=== PATIENT | male | born 1975 | race African-American/Black ===

== ENCOUNTER 2016-04-27 07:22 | Emergency (ER) | payer MEDICARE, MEDICAID ==
[~2016-04-27] VITALS: Ht 180.3 cm; Wt 85.0 kg
[~2016-04-27 07:22] MED LIST: LISI-586 PO; SIMV10 PO; WARF7.5 PO
[2016-04-27 07:26] VITALS: BP 135/90; PULSE 87; RESP 16; TEMP 97.8; O2SAT 99
[2016-04-27] MEDS ORDERED: SIMV10TA PO (07:33)
[2016-04-27] MEDS ORDERED: LISI20TA PO (07:33)
[2016-04-27] MEDS ORDERED: COUM4TAB PO (07:33)
--- NOTE | 2016-04-27 07:36 | PD ---
HPI Chief Complaint: Skin Problem Time Seen by Provider: 07:33 Travel History International Travel<30 days: No Contact w/Intl Traveler<30days: No Traveled to known affect area: No History of Present Illness HPI 40-year-old male presents to the emergency department for evaluation of a lump to his buttocks. He states it started 6 days ago. Reports localized pain and drainage from the area. He denies any fevers or chills. Patient reports history of stroke and is currently on simvastatin, lisinopril/ hydrochlorothiazide, warfarin. Patient reports history of same in the past. Patient denies any other complaints at this time. PFSH Past Medical History Hx Anticoagulant Therapy: Yes Cardiovascular Problems: No Cerebrovascular Accident: Yes (X2) Diminished Hearing: No Endocrine: No Genitourinary: No Immune Disorder: No Musculoskeletal: No Neurologic: No Psychiatric: No Reproductive: No Respiratory: No Social History Alcohol Use: Yes (4 PACK OF BEER EVERY DAY) Tobacco Use: Yes (1 PACK A DAY FOR 10 YEARS) Substance Use: Yes (MARIJUANA) Allergies-Medications (Allergen,Severity, Reaction): Coded Allergies: No Known Allergies (Verified , 04/27/16) Reported Meds & Prescriptions Reported Meds & Active Scripts Active Clindamycin (Clindamycin HCl) 300 Mg Cap 300 Mg PO Q6H 10 Days Reported Simvastatin 10 Mg Tab 10 Mg PO DAILY Lisinopril-Hctz 20-12.5 Mg Tab 1 Tab PO DAILY Coumadin (Warfarin) 4 Mg Tab 4 Mg PO DAILY Review of Systems Except as stated in HPI: all other systems reviewed are Neg Physical Exam Narrative GENERAL: Well-developed well-nourished male patient, ambulatory. Afebrile. SKIN: Warm and dry. Patient has a 4cm x 2cm area of fluctuance to the right buttock. This does not extend to the anus. There is mild spontaneous drainage noted. There is no surrounding cellulitic changes. HEAD: Normocephalic. Atraumatic. EYES: No scleral icterus. No injection or drainage. NECK: Supple, trachea midline. No JVD or lymphadenopathy. CARDIOVASCULAR: Regular rate and rhythm without murmurs, gallops, or rubs. RESPIRATORY: Breath sounds equal bilaterally. No accessory muscle use. Lungs sounds clear to auscultation. GASTROINTESTINAL: Abdomen soft, non-tender, nondistended. MUSCULOSKELETAL: No cyanosis, or edema. Data Data Last Documented VS Vital Signs Date Time Temp Pulse Resp B/P Pulse Ox O2 Delivery O2 Flow Rate FiO2 04/27/16 07:26 97.8 87 16 135/90 99 Orders Wound Culture And Gram Stain (04/27/16 07:36) Lidocai-Epi 1%-1:100,000 Inj (Xylocaine- (04/27/16 07:45) MDM Medical Decision Making Medical Screen Exam Complete: Yes Emergency Medical Condition: Yes Medical Record Reviewed: Yes Differential Diagnosis Abscess versus cellulitis versus cyst Narrative Course 40-year-old male presents to the emergency department for an area to his right buttock that is spontaneously draining and painful. He reports history of the same. Physical exam is consistent with abscess. It does not extend to the anus. Patient gives verbal consent for incision and drainage. Patient is instructed on proper wound care. He will be discharged with a prescription for clindamycin and Lortab for pain. Patient is given first dose of clindamycin in the emergency department. He is to follow primary care physician or return for any acute worsening of symptoms. Procedures Procedure Narrative INCISION AND DRAINAGE OF ABSCESS: The area was prepped and was sterilely draped. A subcutaneous wheal of 1% Xylocaine with epinephrine with a total number 5 mL was used to anesthetize the area. The area was properly anesthetized. A number 11 scalpel was used to make a 1 -cm incision across the area of the abscess. Cultures were obtained. The abscess was drained an irrigated with normal saline. Quarter inch iodoform packing was placed in the wound. Sterile dressing applied. Patient advised to have packing removed in two days. Diagnosis Primary Impression: Abscess of buttock, right Referrals: Primary Care Physician call for appointment Patient Instructions: Abscess (ED), Abscess Incision and Drainage (ED), General Instructions Additional Instructions: Clean area twice daily with soap and water and apply [id number] antibiotic ointment. Take antibiotic as directed until gone. Packing removal in 2 days. Take Lortab as directed as needed for pain. Caution this can make you drowsy so do not drive after taking. Follow-up with your primary care physician. Return to the emergency department for any acute worsening of symptoms. Med/Other Pt SpecificInfo: Prescription(s) given Scripts Hydrocodone-Acetaminophen (Lortab)5-325 Mg Tab1 Tab PO Q6H PRN (PAIN) #8 TAB Ref 0 Prov:Hollie Trotter DO 04/27/16 Clindamycin 300 Mg Kos352 Mg PO Q6H 10 Days Ref 0 Prov:Orly Rice 04/27/16 Disposition: 01 DISCHARGE HOME Condition: Stable Orly Rice Apr 27, 2016 07:36
[2016-04-27] MEDS ORDERED: CLIN1CAP6 PO (07:41)
[2016-04-27] MEDS ORDERED: LIDOCAINE 1%/EPINEPHrine 1:100,000 SOLN 20 ML VIAL INFIL ONE (07:45)
[2016-04-27] MEDS ORDERED: HYDR-3533 PO (08:09)
[2016-04-27] MEDS ORDERED: CLINDAMYCIN 150 MG CAP PO ONE (08:15)
== END 2016-04-27 08:25 | disposition home or self-care (01) ==
LOC: NEPB 07:22
DX: L02.31 Cutaneous abscess of buttock (principal); F10.10 Alcohol abuse, uncomplicated; F17.210 Nicotine dependence, cigarettes, uncomplicated; F12.90 Cannabis use, unspecified, uncomplicated; Z79.01 Long term (current) use of anticoagulants
CPT/HCPCS: 10061; 86403; 87070

== ENCOUNTER 2016-07-25 21:51 | Inpatient (IN) | payer MEDICARE, MEDICAID ==
[~2016-07-25] VITALS: Ht 175.3 cm; Wt 76.0 kg
[~2016-07-25 21:51] MED LIST changes: +CLIN1CAP6 PO; +COUM4TAB PO; +HYDR-3533 PO; -LISI-586 PO; +LISI20TA PO; -SIMV10 PO; +SIMV10TA PO; -WARF7.5 PO
[2016-07-25 21:54] VITALS: BP 167/93; PULSE 77; RESP 20; TEMP 98.4; O2SAT 100
--- NOTE | 2016-07-25 22:10 | PD ---
HPI Chief Complaint: Chest Pain Time Seen by Provider: 22:06 Travel History International Travel<30 days: No Contact w/Intl Traveler<30days: No Traveled to known affect area: No History of Present Illness HPI Patient comes in complaining of substernal chest pain that began shortly prior to arrival. Patient denies any radiation of the pain. Reports associated shortness of breath with this. Pain was relieved with aspirin and sublingual nitroglycerin 1 dose was given by EMS en route. Patient denies any nausea, vomiting, headache, new numbness or tingling anywhere, diaphoresis abdominal pain, back pain, cough, or fevers. 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 Patient is on Coumadin. Patient denies any cardiac history or previous chest pain like this. Denies ever having a stress test or cardiac catheter. PFSH Past Medical History Hx Anticoagulant Therapy: Yes (WARFARIN ) Cardiovascular Problems: No Cerebrovascular Accident: Yes Diminished Hearing: No Endocrine: No Gastrointestinal Disorders: No Genitourinary: No Immune Disorder: No Implanted Vascular Access Dvce: No Musculoskeletal: No Neurologic: No Psychiatric: No Reproductive: No Respiratory: No Past Surgical History Other Surgery: No Social History Alcohol Use: Yes (4 PACK OF BEER EVERY DAY) Tobacco Use: Yes (1 PACK A DAY FOR 10 YEARS) Substance Use: Yes (MARIJUANA) Allergies-Medications (Allergen,Severity, Reaction): Coded Allergies: No Known Allergies (Verified , 07/25/16) Reported Meds & Prescriptions Reported Meds & Active Scripts Active Lortab (Hydrocodone-Acetaminophen) 5-325 Mg Tab 1 Tab PO Q6H PRN Reported Simvastatin 10 Mg Tab 10 Mg PO DAILY Lisinopril-Hctz 20-12.5 Mg Tab 1 Tab PO DAILY Coumadin (Warfarin) 4 Mg Tab 4 Mg PO DAILY Review of Systems Except as stated in HPI: all other systems reviewed are Neg Physical Exam Narrative GENERAL: Well-developed, well nourished, in no acute distress, and non-ill appearing. SKIN: Focused skin assessment warm and dry. HEAD: Atraumatic. Normocephalic. EYES: Pupils equal and round. EOMI. No scleral icterus. No injection or drainage. ENT: No nasal bleeding or discharge. Mucous membranes pink and moist. NECK: Trachea midline. No JVD. Supple. No nuclear rigidity. CARDIOVASCULAR: Regular rate and rhythm. No murmur appreciated. RESPIRATORY: No accessory muscle use. No respiratory distress. Scant wheezing noted throughout left greater than right. MUSCULOSKELETAL: No obvious deformities. No clubbing. No cyanosis. No edema. Full range of motion. NEUROLOGICAL: Awake and alert. No obvious cranial nerve deficits. Motor grossly within normal limits. Normal speech. PSYCHIATRIC: Appropriate mood and affect; insight and judgment normal. Data Data Last Documented VS Vital Signs Date Time Temp Pulse Resp B/P Pulse Ox O2 Delivery O2 Flow Rate FiO2 07/25/16 22:12 167/93 07/25/16 22:12 100 Nasal Cannula 2 07/25/16 21:54 98.4 77 20 Orders Electrocardiogram (07/25/16 22:05) Basic Metabolic Panel (Bmp) (07/25/16 22:05) Ckmb (Isoenzyme) Profile (07/25/16 22:05) Complete Blood Count With Diff (07/25/16 22:05) Magnesium (Mg) (07/25/16 22:05) Prothrombin Time / Inr (Pt) (07/25/16 22:05) Act Partial Throm Time (Ptt) (07/25/16 22:05) Troponin I (07/25/16 22:05) Chest, Single Ap (07/25/16 22:05) Ecg Monitoring (07/25/16 22:05) Bilateral Bp Monitoring (07/25/16 22:05) Iv Access Insert/Monitor (07/25/16 22:05) Oximetry (07/25/16 22:05) Oxygen Administration (07/25/16 22:05) Sodium Chloride 0.9% Flush (Ns Flush) (07/25/16 22:15) CKMB (07/25/16 22:16) CKMB% (07/25/16 22:16) Activity Bed Rest With Brp (07/25/16 23:26) Vital Signs (Adult) Q4H (07/25/16 23:26) Cardiac Rhythm .As Directed (07/25/16 23:26) Notify Dr: Other .PRN (07/25/16 23:26) Notify Dr. Parameters (07/25/16 23:26) Resp Oxygen Nasal Cannula (07/25/16 ) Diet Npo (07/26/16 Breakfast) Ckmb (Isoenzyme) Profile (07/26/16 01:16) Ckmb (Isoenzyme) Profile (07/26/16 04:16) Troponin I (07/26/16 01:16) Troponin I (07/26/16 04:16) Electrocardiogram (07/26/16 01:16) Electrocardiogram (07/26/16 04:16) ^ Obtain (07/25/16 23:26) Nitroglycerin Sl (Nitrostat Sl) (07/25/16 23:30) Aspirin (Aspirin) (07/26/16 09:00) Grinder Set Up Operator Jig / Telemetry [email or web address] (07/25/16 23:26) Admit Order (Ed Use Only) (07/25/16 23:28) CKMB (07/26/16 01:37) CKMB% (07/26/16 01:37) CKMB (07/26/16 03:50) CKMB% (07/26/16 03:50) Labs Laboratory Tests Test 07/25/16 22:16 White Blood Count 10.1 TH/MM3 Red Blood Count 4.73 MIL/MM3 Hemoglobin 14.7 GM/DL Hematocrit 43.6 % Mean Corpuscular Volume 92.2 FL Mean Corpuscular Hemoglobin 31.0 PG Mean Corpuscular Hemoglobin 33.7 % Concent Red Cell Distribution Width 15.6 % Platelet Count 213 TH/MM3 Mean Platelet Volume 7.5 FL Neutrophils (%) (Auto) 51.6 % Lymphocytes (%) (Auto) 38.6 % Monocytes (%) (Auto) 6.3 % Eosinophils (%) (Auto) 3.0 % Basophils (%) (Auto) 0.5 % Neutrophils # (Auto) 5.2 TH/MM3 Lymphocytes # (Auto) 3.9 TH/MM3 Monocytes # (Auto) 0.6 TH/MM3 Eosinophils # (Auto) 0.3 TH/MM3 Basophils # (Auto) 0.0 TH/MM3 CBC Comment DIFF FINAL Differential Comment Prothrombin Time 25.0 SEC Prothromb Time International 2.2 RATIO Ratio Activated Partial 43.7 SEC Thromboplast Time Sodium Level 139 MEQ/L Potassium Level 3.4 MEQ/L Chloride Level 106 MEQ/L Carbon Dioxide Level 25.9 MEQ/L Anion Gap 7 MEQ/L Blood Urea Nitrogen 10 MG/DL Creatinine 0.91 MG/DL Estimat Glomerular Filtration 110 ML/MIN Rate Random Glucose 96 MG/DL Calcium Level 8.4 MG/DL Magnesium Level 2.2 MG/DL Total Creatine Kinase 185 U/L Creatine Kinase MB 0.9 NG/ML Troponin I LESS THAN 0.02 NG/ML MDM Medical Decision Making Medical Screen Exam Complete: Yes Emergency Medical Condition: Yes Interpretation(s) EKG reviewed by Dr. Gilman shows sinus rhythm with ventricular rate 76. No STEMI. Chest x-ray read by radiologist shows: 1. Mild bibasilar streakiness consistent with atelectasis, mild infiltrates and/ or congestion. Clinical correlation is recommended. 2. Mild cardiomegaly. Differential Diagnosis Acute coronary syndrome, angina, electrolyte abnormality, pneumonia, pneumothorax, other Narrative Course Patient was seen and examined. Initial laboratory and radiological studies were ordered. Patient was signed out to Dr. Gilman at the end of my shift. Please see her documentation for final diagnosis and disposition. Melvin Graf July 25, 2016 22:10
[2016-07-25 22:12] VITALS: BP 167/93; O2SAT 100
[2016-07-25] MEDS ORDERED: SODIUM CHLORIDE 0.9% FLUSH 10 ML FLUSH IVF PRN (22:15)
[2016-07-25 22:33] LABS: AUTOMATED NEUTROPHIL # 5.2 TH/MM3 (1.8-7.7); BASOPHIL % 0.5 % (0.0-2.0); EOSINOPHIL # 0.3 TH/MM3 (0-0.4); HEMATOCRIT 43.6 % (39.0-51.0); HEMO FLAGS DIFF FINAL; LYMPH % 38.6 % (9.0-44.0); LYMPHOCYTE # 3.9 TH/MM3 (1.0-4.8); MEAN CELL VOLUME 92.2 FL (80.0-100.0); MEAN CORPUSCULAR HGB CONC 33.7 % (32.0-36.0); MONO % 6.3 % (0.0-8.0); NEUT % 51.6 % (16.0-70.0); PLATELET COUNT 213 TH/MM3 (150-450); RED BLOOD COUNT 4.73 MIL/MM3 (4.50-5.90); RED CELL DISTRIBUTION WIDTH 15.6 % (11.6-17.2); WHITE BLOOD COUNT 10.1 TH/MM3 (4.0-11.0)
[2016-07-25 22:42] LABS: APTT (PATIENT) 43.7 SEC (24.3-30.1); INTERNATIONAL NORMALIZED RATIO 2.2 RATIO
--- NOTE | 2016-07-25 22:50 | RADRPT ---
EXAM DATE/TIME: 07/25/2016 22:22 [facility] COMPARISON: CHEST SINGLE AP, October 15, 2011, 18:55. INDICATIONS : Chest pain. MEDICAL HISTORY : None. SURGICAL HISTORY : None. ENCOUNTER: Initial ACUITY: 1 day PAIN SCORE: 6/10 LOCATION: Bilateral chest FINDINGS: The heart is stable. Mild bibasilar streakiness is noted consistent with atelectasis, infiltrates an d/or congestion. CONCLUSION: 1. Mild bibasilar streakiness consistent with atelectasis, mild infiltrates and/or congestion. Clin ical correlation is recommended. 2. Mild cardiomegaly. Uriel Plasencia MD on July 25, 2016 at 22:36 Board Certified Radiologist. This report was verified electronically.
[2016-07-25 23:15] LABS: ANION GAP 7 MEQ/L (5-15); BICARBONATE 25.9 MEQ/L (21.0-32.0); BLOOD UREA NITROGEN 10 MG/DL (7-18); CHLORIDE 106 MEQ/L (98-107); GLOMERULAR FILTRATION RATE 110 ML/MIN (>89); MAGNESIUM 2.2 MG/DL (1.5-2.5); POTASSIUM 3.4 MEQ/L (3.5-5.1); SODIUM (NA) 139 MEQ/L (136-145)
[2016-07-25 23:18] LABS: CREATINE KINASE 185 U/L (39-308)
[2016-07-25] MEDS ORDERED: NITROGLYCERIN 0.4 MG SL 25 TABS/BTL SL PRN (23:30)
[2016-07-25 23:31] LABS: CKMB 0.9 NG/ML (0.5-3.6)
--- NOTE | 2016-07-25 23:42 | PD ---
Data Data Last Documented VS Vital Signs Date Time Temp Pulse Resp B/P Pulse Ox O2 Delivery O2 Flow Rate FiO2 07/25/16 22:12 167/93 07/25/16 22:12 100 Nasal Cannula 2 07/25/16 21:54 98.4 77 20 Orders Electrocardiogram (07/25/16 22:05) Basic Metabolic Panel (Bmp) (07/25/16 22:05) Ckmb (Isoenzyme) Profile (07/25/16 22:05) Complete Blood Count With Diff (07/25/16 22:05) Magnesium (Mg) (07/25/16 22:05) Prothrombin Time / Inr (Pt) (07/25/16 22:05) Act Partial Throm Time (Ptt) (07/25/16 22:05) Troponin I (07/25/16 22:05) Chest, Single Ap (07/25/16 22:05) Ecg Monitoring (07/25/16 22:05) Bilateral Bp Monitoring (07/25/16 22:05) Iv Access Insert/Monitor (07/25/16 22:05) Oximetry (07/25/16 22:05) Oxygen Administration (07/25/16 22:05) Sodium Chloride 0.9% Flush (Ns Flush) (07/25/16 22:15) CKMB (07/25/16 22:16) CKMB% (07/25/16 22:16) Activity Bed Rest With Brp (07/25/16 23:26) Vital Signs (Adult) Q4H (07/25/16 23:26) Cardiac Rhythm .As Directed (07/25/16 23:26) Notify Dr: Other .PRN (07/25/16 23:26) Notify Dr. Parameters (07/25/16 23:26) Resp Oxygen Nasal Cannula (07/25/16 ) Diet Npo (07/26/16 Breakfast) Ckmb (Isoenzyme) Profile (07/26/16 01:16) Ckmb (Isoenzyme) Profile (07/26/16 04:16) Troponin I (07/26/16 01:16) Troponin I (07/26/16 04:16) Electrocardiogram (07/26/16 01:16) Electrocardiogram (07/26/16 04:16) ^ Obtain (07/25/16 23:26) Nitroglycerin Sl (Nitrostat Sl) (07/25/16 23:30) Aspirin (Aspirin) (07/26/16 09:00) Python Architect / Telemetry [email or web address] (07/25/16 23:26) Admit Order (Ed Use Only) (07/25/16 23:28) Labs Laboratory Tests Test 07/25/16 22:16 White Blood Count 10.1 TH/MM3 Red Blood Count 4.73 MIL/MM3 Hemoglobin 14.7 GM/DL Hematocrit 43.6 % Mean Corpuscular Volume 92.2 FL Mean Corpuscular Hemoglobin 31.0 PG Mean Corpuscular Hemoglobin 33.7 % Concent Red Cell Distribution Width 15.6 % Platelet Count 213 TH/MM3 Mean Platelet Volume 7.5 FL Neutrophils (%) (Auto) 51.6 % Lymphocytes (%) (Auto) 38.6 % Monocytes (%) (Auto) 6.3 % Eosinophils (%) (Auto) 3.0 % Basophils (%) (Auto) 0.5 % Neutrophils # (Auto) 5.2 TH/MM3 Lymphocytes # (Auto) 3.9 TH/MM3 Monocytes # (Auto) 0.6 TH/MM3 Eosinophils # (Auto) 0.3 TH/MM3 Basophils # (Auto) 0.0 TH/MM3 CBC Comment DIFF FINAL Differential Comment Prothrombin Time 25.0 SEC Prothromb Time International 2.2 RATIO Ratio Activated Partial 43.7 SEC Thromboplast Time Sodium Level 139 MEQ/L Potassium Level 3.4 MEQ/L Chloride Level 106 MEQ/L Carbon Dioxide Level 25.9 MEQ/L Anion Gap 7 MEQ/L Blood Urea Nitrogen 10 MG/DL Creatinine 0.91 MG/DL Estimat Glomerular Filtration 110 ML/MIN Rate Random Glucose 96 MG/DL Calcium Level 8.4 MG/DL Magnesium Level 2.2 MG/DL Total Creatine Kinase 185 U/L Creatine Kinase MB 0.9 NG/ML Troponin I LESS THAN 0.02 NG/ML MDM Supervised Visit with ADELINA: Yes Narrative Course I, Dr. Gilman, have reviewed the advance practice practioner's documentation and am in agreement, met with the patient face to face, made the diagnosis, and the medical decision making was done by me. *My assessment and Findings: 41-year-old male with history of previous CVA on Coumadin here with chest pain that developed shortly prior to arrival, substernal without radiation. Associated shortness of breath. Symptoms relieved with aspirin and nitroglycerin en route per EMS. No reproducible tenderness palpation, regular rate and rhythm. Minimal wheeze bilaterally. Differential includes ACS, atypical chest pain, pneumonia, COPD, and less likely PE or dissection. EKG and laboratory workup unremarkable. Given his age and history of vascular disease Will admit to chest pain center for serial cardiac enzymes/EKG and provocative testing. Tori Gilman MD July 25, 2016 23:42
[2016-07-25 23:55] VITALS: O2SAT 100
[2016-07-26] VITALS (10 sets, daily range): BP systolic 133–172; BP diastolic 79–95; PULSE 61–70; RESP 18–20; TEMP 96.1–98.4; O2SAT 96–98
[2016-07-26 02:07] LABS: CREATINE KINASE 182 U/L (39-308)
[2016-07-26 02:20] LABS: CKMB 2.2 NG/ML (0.5-3.6)
[2016-07-26 05:44] LABS: CREATINE KINASE 176 U/L (39-308)
[2016-07-26 05:57] LABS: CKMB 3.6 NG/ML (0.5-3.6)
[2016-07-26] MEDS ORDERED: NALOXONE HCL 0.4 MG/ML AMP IV PRN (06:15)
[2016-07-26] MEDS ORDERED: ONDANSETRON HCL 4 MG/2 ML VIAL IVP PRN (06:15)
[2016-07-26] MEDS ORDERED: SODIUM CHLORIDE 0.9% FLUSH 10 ML FLUSH IV FLUSH PRN (06:15)
[2016-07-26] MEDS: SODIUM CHLOR 0.9% 1000 ML INJ 1,000 ML IV SCH (06:37)
[2016-07-26] MEDS: HEPARIN-D5W INJ 250 ML IV SCH (06:37)
[2016-07-26 07:42] LABS: HEMATOCRIT 43.5 % (39.0-51.0); MEAN CELL VOLUME 91.4 FL (80.0-100.0); MEAN CORPUSCULAR HEMOGLOBIN 31.7 PG (27.0-34.0); MEAN CORPUSCULAR HGB CONC 34.6 % (32.0-36.0); PLATELET COUNT 229 TH/MM3 (150-450); RED BLOOD COUNT 4.76 MIL/MM3 (4.50-5.90); RED CELL DISTRIBUTION WIDTH 15.7 % (11.6-17.2); REVIEW FLAG FINAL; WHITE BLOOD COUNT 8.2 TH/MM3 (4.0-11.0)
[2016-07-26 07:56] LABS: INTERNATIONAL NORMALIZED RATIO 2.4 RATIO; PROTHROMBIN TIME - PATIENT 28.1 SEC (9.8-11.6)
[2016-07-26 08:01] LABS: HDL CHOLESTEROL 37.4 MG/DL (40.0-60.0)
[2016-07-26] MEDS: ASPIRIN 325 MG TAB PO SCH (08:40)
[2016-07-26] MEDS: SODIUM CHLORIDE 0.9% FLUSH 10 ML FLUSH IV FLUSH SCH ×2 (08:41→21:00)
[2016-07-26] MEDS ORDERED: PRAVASTATIN SOD 20 MG TAB PO SCH (09:00)
--- NOTE | 2016-07-26 10:29 | HHI.HP ---
[facility] Huang Saba, PhD, MD Admission Diagnosis chest pain Diagnoses: Chief Complaint: chest pain Travel History International Travel<30 Days: No Contact w/Intl Traveler <30 Da: No Traveled to Known Affected Are: No History of Present Illness 41-year-old male with history of HTN, HLD, CVA 5 years ago on Coumadin with residual right sided weakness and dysarthria/speech delay, presents with acute onset of chest pain prior to arrival. The patient reports last night around 8pm while watching television he developed constant severe sharp midsternal chest pain, with no radiation of the pain but did have tingling down both arms/hands. Denies any associated nausea/vomiting, diaphoresis, or shortness of breath. Denies any lower extremity edema or weight gain. The pain was worsened by deep inspiration and is reproducible with palpation. The patient does admit he has been doing a lot of push ups yesterday prior to the chest pain. He has never had chest pain like this before. He denies any chest pain with exertion in the past. His chest pain was relieved after receiving aspirin and nitro en route via EMS. He follows with neurologist Dr. Saba and he also believes he has a dietist in [place] however denies any prior stress testing or cardiac catheterization. The patient has no other medical complaints to report. Review of Systems Except as stated in HPI: all other systems reviewed are Neg Past Family Social History Past Medical History CVA x2, 5years ago, follows with Dr. Saba, residual dysarthria with speech delay and right sided weakness Hypertension Hyperlipidemia Past Surgical History Denies any prior surgeries. Reported Medications Simvastatin 10 Mg Tab 10 Mg PO DAILY Lisinopril-Hctz 20-12.5 Mg Tab 1 Tab PO DAILY Coumadin (Warfarin) 4 Mg Tab 4 Mg PO DAILY Allergies: Coded Allergies: No Known Allergies (Verified , 07/25/16) Active Ordered Medications Current Medications Medications (Trade) Dose Ordered Sig/Adilia Route Start Time Stop Time Status Last Admin Aspirin 325 mg 325 mg DAILY PO 07/26/16 09:00 07/26/16 08:40 (NS 1000 ml Inj) 1,000 ml @ 42 mls/hr [id number] IV 07/26/16 06:05 07/26/16 06:37 (NS Flush) 2 ml UNSCH PRN IV FLUSH 07/26/16 06:15 (NS Flush) 2 ml BID IV FLUSH 07/26/16 09:00 07/26/16 08:41 (Tylenol) 650 mg Q4H PRN PO 07/26/16 06:15 (Zofran Inj) 4 mg Q6H PRN IVP 07/26/16 06:15 Naloxone HCl 0.4 mg 0.4 mg UNSCH PRN IV 07/26/16 06:15 (Heparin-D5W Inj) 250 ml @ 0 mls/hr TITRATE IV 07/26/16 06:15 07/26/16 06:37 (Nitroglycerin 2% Oint) 0.5 inch Q6HR TOPICAL 07/26/16 12:00 (Pravachol) 20 mg DAILY PO 07/26/16 09:00 07/26/16 08:41 Family History Both parents are fairly healthy, he is not aware of any significant medical problems. 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 SKIN: Warm and dry. No rash. HEAD: Normocephalic. Atraumatic. EYES: Pupils equal and round. No scleral icterus. No injection or drainage. ENT: No nasal bleeding or discharge. Mucous membranes pink and moist. NECK: Supple. Trachea midline. CARDIOVASCULAR: Regular rate and rhythm. S1, S2 noted. No murmur appreciated. Mid-Anterior chest wall mildly TTP. RESPIRATORY: No accessory muscle use. Clear to auscultation. Breath sounds equal bilaterally. GASTROINTESTINAL: Abdomen soft, non-tender, nondistended. Normoactive bowel sounds x4. MUSCULOSKELETAL: No obvious deformities. Extremities without clubbing, cyanosis , or edema. NEUROLOGICAL: Awake and alert, Oriented to self, [facility], year 2016, does not know the month or date. 4/5 strength of RUE/RLE, 5/5 strength of LUE/ LLE. Patellar DTR 2+ on the right, 1+ on the left. Slight right sided facial droop with flattening of the nasolabial fold. +Dysarthria with slowed speech. PSYCHIATRIC: Appropriate mood and affect; insight and judgment normal. Laboratory Laboratory Tests Test 07/25/16 07/26/16 07/26/16 07/26/16 22:16 01:37 03:50 07:11 White Blood Count 10.1 8.2 Red Blood Count 4.73 4.76 Hemoglobin 14.7 15.1 Hematocrit 43.6 43.5 Mean Corpuscular Volume 92.2 91.4 Mean Corpuscular Hemoglobin 31.0 31.7 Mean Corpuscular Hemoglobin 33.7 34.6 Concent Red Cell Distribution Width 15.6 15.7 Platelet Count 213 229 Mean Platelet Volume 7.5 8.0 Neutrophils (%) (Auto) 51.6 Lymphocytes (%) (Auto) 38.6 Monocytes (%) (Auto) 6.3 Eosinophils (%) (Auto) 3.0 Basophils (%) (Auto) 0.5 Neutrophils # (Auto) 5.2 Lymphocytes # (Auto) 3.9 Monocytes # (Auto) 0.6 Eosinophils # (Auto) 0.3 Basophils # (Auto) 0.0 CBC Comment DIFF FINAL Differential Comment Prothrombin Time 25.0 28.1 Prothromb Time International 2.2 2.4 Ratio Activated Partial 43.7 80.0 Thromboplast Time Sodium Level 139 Potassium Level 3.4 Chloride Level 106 Carbon Dioxide Level 25.9 Anion Gap 7 Blood Urea Nitrogen 10 Creatinine 0.91 Estimat Glomerular Filtration 110 Rate Random Glucose 96 Calcium Level 8.4 Magnesium Level 2.2 Total Creatine Kinase 185 182 176 Creatine Kinase MB 0.9 2.2 3.6 Troponin I LESS THAN 0.02 0.19 0.46 Triglycerides Level 101 Cholesterol Level 132 LDL Cholesterol 74 HDL Cholesterol 37.4 Cholesterol/HDL Ratio 3.52 Result Diagram: 07/26/16 0711 07/25/162215 Imaging Last Impressions Chest X-Ray 07/25/162204 Signed Impressions: Service Date/Time: Wednesday, July 25, 2016 22:22 - CONCLUSION: 1. Mild bibasilar streakiness consistent with atelectasis, mild infiltrates and/or congestion. Clinical correlation is recommended. 2. Mild cardiomegaly. Uriel Plasencia MD Assessment and Plan Problem List: (1) NSTEMI (non-ST elevated myocardial infarction) ICD Code: I21.4 Status: Acute (2) Hypertension ICD Code: I10 Status: Chronic (3) Hyperlipidemia ICD Code: E78.5 Status: Chronic Assessment and Plan 41-year-old male with history of HTN, HLD, CVA 5 years ago on Coumadin with residual right sided weakness and dysarthria/speech delay, presents with acute onset of chest pain prior to arrival. NSTEMI: patient presents with acute onset of chest pain with some typical and atypical components, reproduced with palpation, however relieved by aspirin/ nitro en route. +risk factors with tobacco use, HTN, HLD, prior CVA. -Troponins elevated 0.02 --> 0.19 --> 0.46, EKG with no acute ST elevation/ depression, nonspecific ST-T changes -Started on Heparin drip -lipid panel reviewed, wnl, check HgbA1c -continue aspirin, statin, nitro ointment q6h -patient with +marijuana use, denies cocaine use however will check UDS and if negative, consider starting BB -Cardiology consulted, requests neuro clearance prior to cardiac catheterization -monitor on telemetry -check echocardiogram Hypertension: chronic, BP fairly well controlled -continue patient's lisinopril however hold patient's HCTZ with upcoming cardiac cath Hyperlipidemia: chronic -continue patient's statin Chronic CVA with Residual Right Sided Deficit and Dysarthria: chronic -hold patient's Coumadin, on heparin drip as above -monitor neuro checks -continue aspirin for now -neurology consulted by cardiology for clearance prior to cardiac cath Tobacco Use: chronic -counseled on cessation -avoid nicotine patch secondary to vasoconstriction with NSTEMI as above DVT Prophylaxis: on Heparin drip Written by Kathia Early, acting as scribe for Dr. Flannery on 07/26/16 at 10: 19. This note was transcribed by scribe [Kathia Early]. I, Dr. Finn Flannery personally performed the history, physical exam, and medical decision making; and confirmed the accuracy of the information in the transcribed note. Authenticated by Dr. Finn Flannery on 07/28/16 at 09:11. Code Status Full Code Discussed Condition With Patient, RN Physician Certification 2 Midnight Certification Type: Admission for Inpatient Services Order for Inpatient Services The services are ordered in accordance with Medicare regulations or non- Medicare payer requirements, as applicable. In the case of services not specified as inpatient-only, they are appropriately provided as inpatient services in accordance with the 2-midnight benchmark. Estimated LOS (days): 3 days is the estimated time the patient will need to remain in the hospital, assuming treatment plan goals are met and no additional complications. Post-Hospital Plan: Home Kathia Early PA-C July 26, 2016 10:29 Finn Flannery MD July 28, 2016 09:11
--- NOTE | 2016-07-26 10:49 | MB ---
cc: MEENU CRANE M.D. DATE OF CONSULTATION: 07/26/2016 HISTORY OF PRESENT ILLNESS Jj is a very pleasant 41-year-old gentleman with history of coronary artery disease status post myocardial infarction, status post CVA with residual right-sided weakness, anticoagulated with Coumadin and also has dysarthria, presents to the ER with complaints of 8 out of 10 chest pain, severe dyspnea. Currently he is asymptomatic. Pain was relieved with aspirin and nitro by EMS. He otherwise denies any fevers, chills, cough, GI or bleeding, PND, orthopnea, syncope, dizziness. PAST MEDICAL HISTORY Per history of present illness. SOCIAL HISTORY Drinks four packs of beer every day. Smokes a pack of cigarettes a day. Smokes marijuana. ALLERGIES None. MEDICATIONS Prior to admission: Lisinopril, HCTZ, Simvastatin 10. Medications in the hospital: 1. Half-inch nitro paste q.6 hours. 2. Aspirin 325. 3. Pravastatin 20. 4. Coumadin. PHYSICAL EXAMINATION VITAL SIGNS: Blood pressure 133/86, pulse 67, respiratory rate 18, temperature 98.4. GENERAL: He is alert and oriented x 3, in no acute distress. NECK: Supple. No JVD or bruit. CARDIOVASCULAR: S1, S2. No murmurs, rubs or gallops. LUNGS: Clear to auscultation bilaterally. ABDOMEN: Soft, nontender, nondistended. Positive bowel sounds. EXTREMITIES: No lower extremity edema. LABORATORY DATA White count 8.2, hemoglobin 15.1, hematocrit 43.5, platelet count 229, troponin is less than 0.02, then 0.19 and 0.46. Sodium 139, potassium 3.4, chloride 106, bicarb 25.9, BUN 10, creatinine 0.91, calcium 8.4, LDL 74, INR is 2.4. IMAGING STUDIES Chest x-ray shows mild bibasilar streakiness consistent with atelectasis, mild infiltrate and/or congestion, clinic correlation is recommended, mild cardiomegaly. EKG Shows normal sinus rhythm at 76 beats per minute. Nonspecific ST-T wave changes. DIAGNOSES 1. Non-STEMI. 2. History of CVA. 3. Hemiparesis. 4. Dysarthria. 5. Hypokalemia. 6. Dyspnea. 7. CHF. 8. Hypocalcemia. 9. Tobacco abuse. 10. Marijuana abuse. 11. Alcohol abuse. DISCUSSION At this point in time I have recommended a left heart catheterization. I think left heart catheterization is medically necessary due to non-STEMI, multiple cardiac risk factors, elevated troponin, 8 out of 10 chest pain as detailed above. The patient is currently chest pain free. At this point in time will hold his Coumadin, start a heparin drip, check INR daily and plan for heart catheterization when INR less than 2.0. I explained to the patient the risk of the cath and/or PCI, there is a 10% chance of , stroke, heart attack, need for bypass surgery, need for dialysis, need for surgery, need for blood transfusion, bleeding, infection, anaphylaxis of arrhythmia. The patient understands and consents to proceed. Otherwise, strongly recommend smoking cessation, marijuana cessation, alcohol abstinence. I have counseled the patient myself personally. Plan discussed with the nurse. MD COLLEEN Cline/TLL /10:06 AM /10:32 AM
[2016-07-26] MEDS: NITROGLYCERIN 2% OINT 1 GM PACKET TOPICAL SCH ×3 (12:17→23:48)
[2016-07-26] MEDS ORDERED: POTASSIUM CHLORIDE 10 MEQ CONTROLLED RELEASE TAB PO ONE (13:00)
--- NOTE | 2016-07-26 13:01 | MB ---
cc: DENAE GAMEZ M.D. DATE OF CONSULTATION: 07/26/2016 DATE OF : [birth year], 41 REASON FOR CONSULTATION The patient is a 41 year-old man with a history of left MCA infarct, on anticoagulation, now with chest pain, clearance for cardiac cath. HISTORY OF PRESENT ILLNESS: The patient is a 41 year-old man who states he had two stroked, follows with my partner in the office, Dr. Saba. He had apparently left MCA infarct in the left posterior inferior cerebral artery infarct in the past with a history of hypertension and hyperlipidemia. Smoking history. Compliant with Coumadin and therapeutic INR. He came in with chest pain and dyspnea. Currently he is asymptomatic. Offers no complaints of chest pain, shortness of breath. He has some residual right-sided weakness and aphasia, but other than that offers no new complaints. MEDICATIONS 1. Lisinopril. 2. Simvastatin. 3. Hydrochlorothiazide. 4. Coumadin. ALLERGIES None. SOCIAL HISTORY Smokes a pack a day. Smokes marijuana, drinks four pack of beer every day. FAMILY HISTORY Noncontributory at this time. PHYSICAL EXAMINATION: Vitals: Temperature 98.4, pulse 67, respiratory rate 18, blood pressure 133/86. Neck is supple. I do not appreciate any bruits. Heart: His heart is regular. He is awake and alert, some expressive aphasia. Follows commands. His pupils are reactive. Mild facial asymmetry on the right, some right hemiparesis, mild on the right. Bkczho-nrcs-liiyrf slower on the right. DTRs are trace to 1+. Gait is withheld at this time. LABORATORY DATA: Reviewed. CBC is normal. Coag panel, INR is 2.4 this morning, 2.2 yesterday. His PTT is 80. He is now on heparin. Chemistry: Triglycerides is 101, cholesterol 132, LDL 74, HDL 37.4. Troponin is 0.02, 0.19 and 0.46 respectively. Calcium 8.4, normal. Potassium 3.4. IMAGING STUDIES: Chest x-ray, mild bibasilar streakiness, mild cardiomegaly. IMPRESSION: The patient is a 41 year-old man with non STEMI. History of stroke. Chronic tobacco, marijuana and alcohol abuse. RECOMMENDATIONS: Recommend at this time, since he is on heparin, hold his Coumadin, follow his INR daily. His heart cath can be done when his INR is less than 2. Continue his heparin drip. Post cath, go ahead and restart his Coumadin. I do not see any reason this patient cannot undergo workup for his chest pain, via a left heart catheterization. He will be explained the risks and benefits of the cath by the team performing it. I do not believe he needs any other tests neurologically. MD YUNIOR Morales/ABDELRAHMAN /11:11 AM /12:52 PM
[2016-07-26 13:25] LABS: APTT (PATIENT) 51.6 SEC (24.3-30.1)
--- NOTE | 2016-07-26 13:49 | EKG ---
Date Performed: 07/25/2016 Time Performed: 22:30:26 PTAGE: 41 years EKG: Sinus rhythm POOR PRECORDIAL R-WAVE PROGRESSION BORDERLINE ECG PREVIOUS TRACING : 10/15/2011 18.02 DOCTOR: Lj Dias Interpretating Date/Time 07/26/2016 13:47:18
--- NOTE | 2016-07-26 13:58 | EKG ---
Date Performed: 07/26/2016 Time Performed: 01:28:09 PTAGE: 41 years EKG: NORMAL Sinus rhythm POSSIBLE LEFT ATRIAL ENLARGEMENT BORDERLINE LEFT AXIS DEVIATION INFERIOR NONSPECIFIC T-WAVE CHANGES POOR PRECORDIAL R-WAVE PROGRESSION ABNORMAL ECG PREVIOUS TRACING : 07/25/2016 22.30 DOCTOR: Lj Dias Interpretating Date/Time 07/26/2016 13:57:01
--- NOTE | 2016-07-26 14:00 | EKG ---
Date Performed: 07/26/2016 Time Performed: 04:10:00 PTAGE: 41 years EKG: Sinus rhythm POOR PRECORDIAL R-WAVE PROGRESSION BORDERLINE ECG PREVIOUS TRACING : 07/26/2016 01.28 DOCTOR: Lj Dias Interpretating Date/Time 07/26/2016 13:58:52
[2016-07-26 15:50] LABS: AMPHETAMINE, URINE NEG (NEG); BARBITURATES, URINE NEG (NEG); COCAINE, URINE NEG (NEG)
[2016-07-26 20:38] LABS: APTT (PATIENT) 49.5 SEC (24.3-30.1)
[2016-07-27] VITALS (18 sets, daily range): BP systolic 155–204; BP diastolic 77–95; PULSE 61–86; RESP 16–20; TEMP 96.7–98.4; O2SAT 95–99
[2016-07-27] MEDS: NITROGLYCERIN 2% OINT 1 GM PACKET TOPICAL SCH ×2 (06:00→12:27)
[2016-07-27 06:15] LABS: AUTOMATED NEUTROPHIL # 5.1 TH/MM3 (1.8-7.7); BASOPHIL # 0.1 TH/MM3 (0-0.2); BASOPHIL % 0.5 % (0.0-2.0); EOSINOPHIL # 0.2 TH/MM3 (0-0.4); EOSINOPHIL % 2.3 % (0.0-4.0); HEMO FLAGS DIFF FINAL; LYMPHOCYTE # 4.1 TH/MM3 (1.0-4.8); MEAN CELL VOLUME 91.5 FL (80.0-100.0); MEAN CORPUSCULAR HEMOGLOBIN 31.3 PG (27.0-34.0); MEAN CORPUSCULAR HGB CONC 34.2 % (32.0-36.0); MONO % 6.6 % (0.0-8.0); NEUT % 50.6 % (16.0-70.0); PLATELET COUNT 229 TH/MM3 (150-450); RED BLOOD COUNT 4.48 MIL/MM3 (4.50-5.90); RED CELL DISTRIBUTION WIDTH 15.8 % (11.6-17.2); WHITE BLOOD COUNT 10.2 TH/MM3 (4.0-11.0)
[2016-07-27 06:29] LABS: INTERNATIONAL NORMALIZED RATIO 1.9 RATIO; PROTHROMBIN TIME - PATIENT 21.6 SEC (9.8-11.6)
[2016-07-27 06:38] LABS: BICARBONATE 24.2 MEQ/L (21.0-32.0); POTASSIUM 3.7 MEQ/L (3.5-5.1)
[2016-07-27] MEDS ORDERED: LISINOPRIL 10 MG TAB PO SCH (09:00)
[2016-07-27] MEDS: SODIUM CHLORIDE 0.9% FLUSH 10 ML FLUSH IV FLUSH SCH (09:41)
[2016-07-27] MEDS: ASPIRIN 325 MG TAB PO SCH (09:42)
[2016-07-27] MEDS: SODIUM CHLOR 0.9% 1000 ML INJ 1,000 ML IV SCH (09:42)
[2016-07-27 11:38] LABS: HEMOGLOBIN A1a 1.2 %; HEMOGLOBIN A1b 0.8 %; HEMOGLOBIN Ao 85.8 %; HEMOGLOBIN LA1C 1.7 %; HEMOGLOBIN P3 3.5 %
--- NOTE | 2016-07-27 13:31 | EC ---
Study Study Date:07/27/2016 STUDY CONCLUSIONS SUMMARY - Left ventricle: The cavity size was normal. Wall thickness was normal. Systolic function was normal. The estimated ejection fraction was in the range of 55% to 60%. Wall motion was normal; there were no regional wall motion abnormalities. - Pulmonary arteries: PA peak pressure: 35mm Hg (S). If LV function is below 40, please consider prescribing an ACEI or ARB or document rationale for non-use. PROCEDURE DATA STUDY STATUS: Elective. Procedure: Transthoracic echocardiography. Image quality was good. Scanning was performed from the parasternal, apical, and subcostal acoustic windows. Study completion: The patient tolerated the procedure well. Transthoracic echocardiography. M-mode, complete 2D, complete spectral Doppler, and color Doppler. Patient status: Inpatient. CARDIAC ANATOMY LEFT VENTRICLE: The cavity size was normal. Wall thickness was normal. Systolic function was normal. The estimated ejection fraction was in the range of 55% to 60%. Wall motion was normal; there were no regional wall motion abnormalities. AORTIC VALVE: Trileaflet; normal thickness leaflets. Doppler: Transvalvular velocity was within the normal range. There was no stenosis. No regurgitation. AORTA: Aortic root: The aortic root was normal in size. MITRAL VALVE: Structurally normal valve. Doppler: Transvalvular velocity was within the normal range. There was no evidence for stenosis. No regurgitation. LEFT ATRIUM: The atrium was normal in size. RIGHT VENTRICLE: The cavity size was normal. Wall thickness was normal. PULMONIC VALVE: Doppler: Transvalvular velocity was within the normal range. There was no evidence for stenosis. No regurgitation. TRICUSPID VALVE: Structurally normal valve. Doppler: Transvalvular velocity was within the normal range. No regurgitation. PULMONARY ARTERY: The main pulmonary artery was normal-sized. Systolic pressure was within the normal range. RIGHT ATRIUM: The atrium was normal in size. PERICARDIUM: There was no pericardial effusion. SYSTEMIC VEINS: Inferior vena cava: The vessel was normal in size. BASIC MEASUREMENTS ADULT Normal Left ventricle LV internal dimension, ED, chordal level, 44.1 mm 43-52 PLAX LV internal dimension, ES, chordal level, 32 mm 23-38 PLAX Fractional shortening, chordal level, PLAX *27 % >29 LV posterior wall thickness, ED 10.3 mm IVS/LVPW ratio, ED *1.67 <1.3 Ventricular septum Septal thickness, ED 17.2 mm Aortic valve Leaflet separation 22 mm 15-26 Right ventricle RV internal dimension, ED, PLAX 24.8 mm 19-38 BASIC MEASUREMENTS ADULT Normal Aortic valve Leaflet separation 22 mm 15-26 Aorta Root diameter, ED 33 mm 20-37 Left atrium Anterior-posterior dimension, ES 32 mm 19-40 LA/aortic root ratio 0.97 DOPPLER MEASUREMENTS ADULT Normal Main pulmonary artery Pressure, S *35 mm Hg =30 Tricuspid valve Regurgitant peak velocity 251 cm/s Peak RV-RA gradient, S 25 mm Hg Maximal regurgitant velocity 251 cm/s Systemic veins Estimated CVP 10 mm Hg Right ventricle RV pressure, S *35 mm Hg <30 LEGEND: Mean values are shown as u=mean value. Asterisk (*) gold values outside specified normal range. Prepared and signed by Mark Sommer [id number]
[2016-07-27] MEDS ORDERED: IOHEXOL 350 MG/ML 50 ML BTL (for Cath Lab) OTHER ONE (14:53)
[2016-07-27] MEDS ORDERED: HEPARIN-NS/PF INJ 500 ML ONE (14:59)
[2016-07-27] MEDS ORDERED: TIROFIBAN INFUSION INJ 250 ML IV ONE (15:38)
[2016-07-27] MEDS ORDERED: CLOPIDOGREL 300 MG TAB ONE (15:46)
[2016-07-27] MEDS ORDERED: TIROFIBAN INFUSION INJ 250 ML IV SCH (15:47)
--- NOTE | 2016-07-27 15:58 | CATHPROC ---
Nutricate HIS Report Study Information Study Number Admission Scheduled Start Study Start [id number] 07/26/2016 07/27/2016 Jul 27 2016 2:37PM Referring Institution Admit Source Facility Department 1 Emergency department [facility] Physician and Clinical Staff Initial Greg Rausch Financial Legal Assistantsylvia Aparicio RN, Petrona Cruz,RT(R) (BS) Scrub Martha Amaro RCIS TECH2 Procedures Performed Procedure Location (Site) Vessel Name Coronary Angiograms LCA Left Coronary Coronary Angiograms RCA Right Coronary L Heart Cath LV Gram-hand inj. LV LV Ventricle PTCA ADD ON'S Stent LAD Mid Left Coronary Wire insertion Fem Art (right) Femoral Art Equipment Time Incinerator Attendant Description Size Mfg Part Number Used/Scraped 15:33 [email or web address] CRITICAL CARE WIRE, TASS PROWATER 180CM 180CM [id number] Used TRANSDUCER, TRUWAVE 14:39 [employer] biostructures * [id number] Used W/STOCKCOCK [id number] 14:39 [employer] IND[employer]RIES PACK, CCL CUSTOM * Used *[id number] 14:39 Trippy PACER PEN, SKIN DUAL W/ RULER * [id number] Used [id number] 15:39 [employer] Entertainment[employer]ONIC STENT, 3.0 9 INTEGRITY 3.0 9 Used *[id number] 15:31 [employer] MEDICAL 30 CHENCHO INDEFLATOR Used *[id number] 15:32 [employer] MEDICAL SHEATH, FR6.5 PRELUDE 11CM FR 6.5 038ACT Used *[id number]- 15:33 [employer] MEDICAL SHEATH, FR6.5 PRELUDE 11CM FR 6.5 038ACT Used *[id number] 14:39 [employer] MEDICAL WIRE, 3MMJ .035 180CM 180CM [id number] Used [id number] 14:39 NAMIC MANIFOLD, 4 PORT * Used *[id number] 14:39 NYCOMED OMNIPAQUE, 350 MG, 100ML 100ML [id number] Used [id number] 14:39 ALARCON MEDICAL BLANKET,WARM AIR CCL * Used *[id number] 14:39 TERUMO MEDICAL SHEATH, FR4 TERUMO (10CM) FR 4 [id number] Used Equipment Model, Serial, Lot Number and Expiration Data Description Model Number Serial Number Lot Number Expiration Date SHEATH, FR6.5 PRELUDE 11CM [id number] 06-13-2019 STENT, 3.0 9 INTEGRITY [id number] 08-11-2017 History: Current Medications Medication Dosage/Unit Route Frequency Last Date/Time Taken ASA Statins (any) Coumadin History: Allergies Allergy Reaction No Known Allergies History: Risk Factors Family History of Hypertension Dyslipidemia Previous [place] Previous Heart Failure Premature CAD Yes Yes No No No Prior Valve Prior PCI Prior CABG Surgery No No No Cerebrovascular Peripheral Artery Chronic Lung On Dialysis Diabetes Disease Disease Disease No Yes No No No History: Stress Tests Stress or Imaging Studies Performed No History: Other Current Smoker Method Packs a Day Years Used Pack Years Yes Cigarettes 1 6 6 Labs Hgb (g/dl) Hct (%) WBC (l/cumm) Platelets (thousands) 12.00-18.00 37.00-55.00 4.80-10.80 140.00-450.00 14.0 41 10.2 229 Glucose (mg/dl) BUN (mg/dl) Creatinine (mg/dl) BUN:Creatinine (1:x) 60.00-110.00 8.00-20.00 0.10-9.00 10.00-20.00 75 9 0.8 11.3 Na (meq/l) K (meq/l) 138.00-146.00 3.80-5.10 139 3.7 INR (PTT:PT) 0.50-2.00 1.9 Troponin I (ng/ml) CPK (u/l) CPK-MB (ng/ML) 0.40-2.30 37.00-289.00 0.00-7.00 0.46 176 Not Drawn Medication Medication Total Dose (Bolus/Oral) Medication Total Dosage/Unit 1% XYLOCAINE 20 mL AGGRASTAT BOLUS 37.5 mL HEPARIN 4500 units PLAVIX 600 mg Medications (Bolus/Oral) Medication Time Given Dosage/Unit Administered By Reason 1% XYLOCAINE 07/27/2016 3:22:13 PM 20 mL Greg Stafford 20 mL 1% XYLOCAINE given in lab by Greg Stafford in Right Groin via Subcutaneous. HEPARIN 07/27/2016 3:31:38 PM 4500 units Anmol Aparicio RN 4500 units HEPARIN given in lab by Anmol Aparicio RN in Left Antecubital via Peripheral IV. AGGRASTAT BOLUS 07/27/2016 3:47:23 PM 37.5 mL Anmol Aparicio RN 37.5 mL AGGRASTAT BOLUS given in lab by Anmol Aparicio RN in Left Antecubital via Peripheral IV. PLAVIX 07/27/2016 3:51:32 PM 600 mg Anmol Aparicio RN 600 mg PLAVIX given in lab by Anmol Aparicio RN via Oral. Medication (Drip) Medication Time Given Dosage/Unit Concentration/Unit Diluent (ml) Solution AGGRASTAT DRIP 07/27/2016 3:49:27 PM 0.147 mcg/kg/min 12.5 mg 250 NaCl .9 0.147 mcg/kg/min AGGRASTAT DRIP given in lab by Anmol Aparicio RN in Left Antecubital via Peripheral IV . Pump/Drip Flow = 13.5 ml/hr using NaCl .9 with a concentration of 12.5 mg in 250 ml. IV Solutions 07/27/2016 2:53:50 PM 0 mL (IV) 500 NaCl .9 IV Solutions given in lab by Anmol Aparicio RN in Left Antecubital via Peripheral IV. Pump/Drip Flow = 20 ml/hr using NaCl .9. Initial Case Assessment Cardiovascular HR Rhythm NIBP Chest Pain 64 reg 179/94 0 Edema Present Skin color Skin None Normal Warm Dry Circulatory - Right Pulses Dorsalis Pedis Femoral 2 2 Scale (0,1,2,3,4,d) Circulatory - Left Pulses Dorsalis Pedis Femoral 2 2 Scale (0,1,2,3,4,d) Circulatory - Lower Extremities Color Lower Right Color Lower Left Normal Normal Neurological State Oriented to time-place- Alert Moves all extremities person Respiration - General Respiration Rate SpO2 (%) (B/min) 16 100 Chronological Log Time Study Chronological Log 14:53:20 Patient arrived via Bed. 14:53:21 Patient Name, D.O.B, / Armband Verified By R.N. 14:53:22 Consent signed by the physician and the patient and verified by the [facility] staff. 14:53:22 Pre-op and post- op instructions given; patient acknowledges understanding of instructions. 14:53:23 Verbal Stimulation=2 Physical Stimulation=2 Airway=2 Respiration=2 TOTAL=8. (0=absent, 1=li mited, 2=present) 14:53:25 Presedation assessment performed by [facility] [employer] RN. 14:53:33 Patient has been NPO for More than 6Hrs. 14:53:35 Skin Breakdown- none per pt 14:53:45 Patient Warmer Placed on the Table. 14:53:49 A # 20 IV was noted in the Antecubital (left). Grade = 0 IV Solutions given in lab by Anmol Aparicio RN in Left Antecubital via Peripheral IV. Pump/Drip F low = 20 ml/hr using NaCl 14:53:50 .9. 14:53:51 History and physical on the chart or being dictated. Assessment: Initial Case, HR=64 BPM, Rhythm=reg, KHJQ=960/94 mmhg, Chest Pain=0, Edema=None, Co cole=Normal, Skin = Warm, Dry Right Pulses: [place]cadio Ped=2, Femoral=2 Left Pulses: [place]cadio Ped=2, Femoral=2 14:53:54 Lower Right Extremities: Color=Normal Lower Left Extremities: Color=Normal Neurological: State=Alert, Ox3, VALENTINE Respiration: Resp=16 B/min, RjH8=691 % Vitals capture started with the following parameters, Patient=Adult, Interval=5 min, Initial Pr xmuutc=442 mmHg, 15:00:01 Deflation Rate=5 mmHg 15:00:52 Reference ECG taken 15:01:22 HR=62 bpm, BOVK=494/94 mmhg, OjT4=417.0 %, Resp=16 B/min, Pain=0, Mihir=10, Miguel=2 15:02:05 Bilateral groins prepped with 2% chlorhexidine, and with a 3 min. waiting time. 15:05:46 HR=64 bpm, WACK=088/96 mmhg, QgR0=591.0 %, Resp=15 B/min, Pain=0, Mihir=10, Miguel=2 15:06:15 MD paged 15:07:15 Pressure channel 1 zeroed. 15:10:45 HR=64 bpm, YXZZ=781/95 mmhg, BeB0=929.0 %, Resp=24 B/min, Pain=0, Mihir=10, Miguel=2 15:15:48 HR=65 bpm, GGYC=238/92 mmhg, SpO2=99.0 %, Resp=18 B/min, Pain=0, Mihir=10, Miguel=2 15:19:45 MD arrived 15:20:49 HR=66 bpm, JEYC=300/87 mmhg, LfT1=140.0 %, Resp=14 B/min, Pain=0, Mihir=10, Miguel=2 Time Out. Correct patient, correct procedure,correct physician, power injector not loaded with contrast with surgical 15::53 team present. Time Out Concurred by , individual staff in procedure 15:22:11 Case Start 15:22:13 20 mL 1% XYLOCAINE given in lab by Greg Stafford in Right Groin via Subcutaneous. 15:24:20 Access site was Right Femoral Artery. 15:24:28 A SHEATH, FR4 TERUMO (10CM) FR 4 was advanced into the Fem Art (right) using the Percutaneo us technique. 15:24:58 Activated Clotting Time Drawn A JR 4.0 INFINITI CATHETER FR 4 was advanced over a wire. OMNIPAQUE, 350 MG, 100ML 100ML was us ed for 15:25:12 injections. Recorded Pressure: LV, HR=60, Condition=Condition 1 15:25:53 (Left Ventricle) LV 184/5/18 15:26:00 The LV was manually injected with 8 cc's and visualized. OMNIPAQUE, 350 MG, 100ML 100ML use d. Recorded Pressure: LV, Ao, HR=63, Condition=Condition 1 15:26:05 (Left Ventricle) LV 201/9/15, (Aorta) Ao 186/87/122 15:26:49 The RCA was injected and visualized at various angles. OMNIPAQUE, 350 MG, 100ML 100ML used . 15:26:56 ACT (Normal Range 90-180) = 139 Recorded Pressure: Ao, HR=64, Condition=Condition 1 15:26:59 (Aorta) Ao 170/84/117 15:27:16 HR=67 bpm, DVIU=935/95 mmhg, SpO2=99.0 %, Resp=15 B/min, Pain=0, Mihir=10, Miguel=2 15:27:36 Catheter was removed A JL 4.0 INFINITI CATHETER FR 4 was advanced over a wire. OMNIPAQUE, 350 MG, 100ML 100ML was us ed for 15:27:37 injections. 15:28:56 The LCA was injected and visualized at various angles. OMNIPAQUE, 350 MG, 100ML 100ML used . 15:30:20 Catheter was removed 15:30:32 OMNIPAQUE, 350 MG, 100ML 100ML and 30 CHENCHO INDEFLATOR added. 15:31:34 HR=70 bpm, VERX=255/104 mmhg, DmU5=954.0 %, Resp=19 B/min, Pain=0, Mihir=10, Miguel=2 15:31:38 4500 units HEPARIN given in lab by Anmol Aparicio RN in Left Antecubital via Peripheral IV. A SHEATH, FR6.5 PRELUDE 11CM FR 6.5 was exchanged in the Fem Art (right). This was necessary in order to 15:31:57 accomodate a larger catheter. A XB 3.5 GUIDE CATHETER FR 6 was advanced over a wire. OMNIPAQUE, 350 MG, 100ML 100ML was used for 15:33:13 injections. 15:35:00 A WIRE, ASAControl4 PROWATER 180CM 180CM was inserted via Fem Art (right). 15:36:33 HR=75 bpm, RVPE=069/110 mmhg, SpO2=99.0 %, Resp=17 B/min, Pain=0, Mihir=10, Miguel=2 An STENT, 3.0 9 INTEGRITY 3.0 9 Bare Metal Stent was inserted through a XB 3.5 GUIDE CATHETER F R 6 over a 15:37:44 WIRE, ASAHI PROWATER 180CM 180CM. A STENT, 3.0 9 INTEGRITY 3.0 9 was deployed using a 30 CHENCHO INDEFLATOR at 13 atmospheres for 13 seconds in the 15:38:48 LAD Mid. 15:40:54 HR=66 bpm, NNAU=280/104 mmhg, BcX9=231.0 %, Resp=15 B/min, Pain=0, Mihir=10, Miguel=2 15:41:27 Catheter was removed 15:41:30 Wire removed 15:41:35 Case End 15:42:34 Catheter(s) removed without difficulty 15:42:37 In the Fem Art (right) the SHEATH, FR6.5 PRELUDE 11CM FR 6.[address] by Martha Amaro, YENY TECH2. 15:42:51 No case complications noted. 15:42:52 Cine recording checked. 15:42:56 Bedside Report will be given. 15:42:57 Implantable Device card placed in patient's chart. 15:42:59 Contrast Scanned 15:43:05 A Left Heart Cath was performed. 15:43:13 Sterile dressing applied to site 15:45:54 ACT (Normal Range 90-180) = 269 15:46:50 HR=66 bpm, ASVO=046/112 mmhg, SpO2=99.0 %, Resp=20 B/min, Pain=0, Mihir=10, Miguel=2 15:47:23 37.5 mL AGGRASTAT BOLUS given in lab by Anmol Aparicio RN in Left Antecubital via Peripheral IV. 0.147 mcg/kg/min AGGRASTAT DRIP given in lab by Anmol Aparicio RN in Left Antecubital via Periphe ral IV. Pump/Drip 15:49:27 Flow = 13.5 ml/hr using NaCl .9 with a concentration of 12.5 mg in 250 ml. 15:51:20 Vitals capture stopped. 15:51:32 600 mg PLAVIX given in lab by Anmol Aparicio RN via Oral. 15:52:05 [facility] Study - Contrast Media Used In Study Contrast Total Opened (mL) Total Used (mL) Total Wasted (mL) Omnipaque 80 80 0 End Study - Maximum Contrast Load Max Contrast Load (mL) 478.1 End Study - Radiation Exposure Fluoro Time (minutes) 2.9 End Study - Patient Disposition Complications Transferred To Interventional Outcome No [facility] [employer] Holding successful
[2016-07-27] MEDS ORDERED: MISC INFORMATION XX ONE (16:00)
[2016-07-27] MEDS ORDERED: CLOPIDOGREL 300 MG TAB PO ONE (16:00)
[2016-07-27] MEDS ORDERED: SODIUM CHLORIDE 0.9% FLUSH 10 ML FLUSH PRN (16:00)
[2016-07-27] MEDS ORDERED: HEPARIN SODIUM - IV 10,000 UNITS/10 ML VIAL ONE (16:23)
[2016-07-27] MEDS ORDERED: NITROGLYCERIN-DEXTROSE INJ 250 ML ONE (16:47)
[2016-07-27] MEDS ORDERED: NITROGLYCERIN-DEXTROSE 5% 250 ML for hypertension IV SCH (17:00)
[2016-07-27] MEDS: ACETAMINOPHEN 325 MG TAB PO PRN (19:37)
[2016-07-27] MEDS ORDERED: ATROPINE SULFATE 1 MG/10 ML SYRINGE ONE (20:48)
[2016-07-27] MEDS ORDERED: CARVEDILOL 3.125 MG TAB PO SCH (21:00)
[2016-07-27] MEDS ORDERED: ATORVASTATIN 10 MG TAB PO SCH (21:00)
[2016-07-27] MEDS: SODIUM CHLORIDE 0.9% FLUSH 10 ML FLUSH SCH (21:00)
[2016-07-27] MEDS ORDERED: CARVEDILOL 3.125 MG TAB PO ONE (23:00)
[2016-07-27] MEDS ORDERED: LISINOPRIL 10 MG TAB PO ONE (23:00)
--- NOTE | 2016-07-27 23:04 | HHI.PR ---
Subjective Remarks Patient seen this afternoon around 4:30 PM, following cardiac catheterization. Patient says he is feeling all right. Denies any pain. Denies any chest pain or shortness of breath. Denies any nausea or vomiting. Objective Vital Signs Date Time Temp Pulse Resp B/P Pulse Ox O2 Delivery O2 Flow Rate FiO2 07/27/16 18:35 97.9 86 18 189/85 99 07/27/16 18:33 97.9 72 18 178/89 98 07/27/16 18:29 97.8 67 18 189/90 98 07/27/16 18:14 70 07/27/16 17:45 97.8 68 16 196/91 98 07/27/16 16:33 94 Room Air 07/27/16 12:00 96.7 64 20 171/90 98 07/27/16 09:47 Room Air 07/27/16 09:47 64 07/27/16 08:00 98.3 61 20 156/85 97 07/27/16 04:00 98.2 75 20 165/84 98 07/27/16 04:00 Room Air 07/27/16 00:00 98.4 68 20 171/95 98 07/27/16 00:00 Room Air I/O 07/26/16 07/26/16 07/26/16 07/27/16 07/27/16 07/27/16 07:00 15:00 23:00 07:00 15:00 23:00 Intake Total 914 ml 387 ml 480 ml Output Total 300 ml 450 ml Balance 914 ml 87 ml 30 ml Intake Oral 280 ml 480 ml IV Total 634 ml 387 ml Output Urine Total 300 ml 450 ml # Voids 1 2 2 # Bowel Movements 0 0 Result Diagram: 07/27/16 0515 07/27/16 0515 Objective Remarks GENERAL: lying in bed. Appears comfortable. lying down flat after cardiac catheterization. SKIN: Warm and dry. HEAD: Normocephalic. EYES: No scleral icterus. No injection or drainage. NECK: Supple, trachea midline. CARDIOVASCULAR: Regular rate and rhythm without murmurs, gallops, or rubs. RESPIRATORY: Breath sounds equal bilaterally. No accessory muscle use. GASTROINTESTINAL: Abdomen soft, non-tender, nondistended. MUSCULOSKELETAL: No cyanosis, or edema. BACK: Nontender without obvious deformity. No CVA tenderness. A/P Assessment and Plan 41-year-old male with history of HTN, HLD, CVA 5 years ago on Coumadin with residual right sided weakness and dysarthria/speech delay, presents with acute onset of chest pain prior to arrival. NSTEMI: patient presents with acute onset of chest pain with some typical and atypical components, reproduced with palpation, however relieved by aspirin/ nitro en route. +risk factors with tobacco use, HTN, HLD, prior CVA. -Troponins elevated 0.02 --> 0.19 --> 0.46, EKG with no acute ST elevation/ depression, nonspecific ST-T changes -Started on Heparin drip -lipid panel reviewed, wnl, check HgbA1c -continue aspirin, statin, nitro ointment q6h -patient with +marijuana use, denies cocaine use however will check UDS and if negative, consider starting BB -Cardiology consulted, requests neuro clearance prior to cardiac catheterization -monitor on telemetry -Echocardiogram with normal ejection fraction. -Status post stenting during cardiac catheterization 07/27. Repeat cardiac catheterization planned by cardiology. Appreciate assistance. Continue to monitor closely [facility]. Hypertension: chronic, BP fairly well controlled -. Blood pressure elevated. Increased lisinopril to home dosing. Increase Coreg. Discontinue fluids. 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 Appreciate assistance. Tobacco Use: chronic -counseled on cessation -avoid nicotine patch secondary to vasoconstriction with NSTEMI as above DVT Prophylaxis: on Heparin drip Discharge Planning home when cleared by cardiology. Finn Flannery MD July 27, 2016 23:04
[2016-07-27] MEDS: PRAVASTATIN SOD 20 MG TAB PO SCH (23:25)
[2016-07-28] VITALS (24 sets, daily range): BP systolic 125–157; BP diastolic 76–95; PULSE 55–87; RESP 16–20; TEMP 97.9–99; O2SAT 98–100
[2016-07-28 04:22] LABS: AUTOMATED NEUTROPHIL # 6.3 TH/MM3 (1.8-7.7); BASOPHIL % 0.4 % (0.0-2.0); EOSINOPHIL # 0.2 TH/MM3 (0-0.4); EOSINOPHIL % 1.7 % (0.0-4.0); HEMATOCRIT 39.6 % (39.0-51.0); HEMO FLAGS DIFF FINAL; LYMPH % 32.7 % (9.0-44.0); LYMPHOCYTE # 3.6 TH/MM3 (1.0-4.8); MEAN CELL VOLUME 92.4 FL (80.0-100.0); MEAN CORPUSCULAR HEMOGLOBIN 30.9 PG (27.0-34.0); MEAN CORPUSCULAR HGB CONC 33.4 % (32.0-36.0); MONO % 8.2 % (0.0-8.0); PLATELET COUNT 205 TH/MM3 (150-450); RED BLOOD COUNT 4.28 MIL/MM3 (4.50-5.90); RED CELL DISTRIBUTION WIDTH 15.7 % (11.6-17.2); WHITE BLOOD COUNT 11.1 TH/MM3 (4.0-11.0)
[2016-07-28 04:26] LABS: APTT (PATIENT) 36.4 SEC (24.3-30.1)
[2016-07-28 04:45] LABS: POTASSIUM 3.9 MEQ/L (3.5-5.1)
[2016-07-28 04:47] LABS: HDL CHOLESTEROL 34.8 MG/DL (40.0-60.0)
[2016-07-28] MEDS: SODIUM CHLOR 0.9% 1000 ML INJ 1,000 ML IV SCH (05:43)
[2016-07-28] MEDS: NITROGLYCERIN 2% OINT 1 GM PACKET TOPICAL SCH ×4 (06:00→23:55)
[2016-07-28] MEDS ORDERED: NITR1SUB3 SL (07:26)
[2016-07-28] MEDS ORDERED: ASPI81CH37 CHEW (07:26)
--- NOTE | 2016-07-28 07:26 | HHI.DS ---
Discharge Summary Admission Date July 26, 2016 at 06:16 Admitting Diagnosis chest pain (1) NSTEMI (non-ST elevated myocardial infarction) ICD Code: I21.4 (2) Hypertension ICD Code: I10 (3) Hyperlipidemia ICD Code: E78.5 Brief History - From Admission 41-year-old male with history of HTN, HLD, CVA 5 years ago on Coumadin with residual right sided weakness and dysarthria/speech delay, presents with acute onset of chest pain prior to arrival. The patient reports last night around 8pm while watching television he developed constant severe sharp midsternal chest pain, with no radiation of the pain but did have tingling down both arms/hands. Denies any associated nausea/vomiting, diaphoresis, or shortness of breath. Denies any lower extremity edema or weight gain. The pain was worsened by deep inspiration and is reproducible with palpation. The patient does admit he has been doing a lot of push ups yesterday prior to the chest pain. He has never had chest pain like this before. He denies any chest pain with exertion in the past. His chest pain was relieved after receiving aspirin and nitro en route via EMS. He follows with neurologist Dr. Saba and he also believes he has a water operator in [place] however denies any prior stress testing or cardiac catheterization. The patient has no other medical complaints to report. CBC/BMP: 07/28/16 0335 07/28/16 0335 Significant Findings Laboratory Tests Test 07/25/16 07/26/16 07/26/16 07/26/16 22:16 01:37 03:50 07:11 Prothrombin Time 25.0 SEC 28.1 SEC (9.8-11.6) (9.8-11.6) Activated Partial 43.7 SEC 80.0 SEC Thromboplast Time (24.3-30.1) (24.3-30.1) Potassium Level 3.4 MEQ/L (3.5-5.1) Calcium Level 8.4 MG/DL (8.5-10.1) Troponin I LESS THAN 0.02 0.19 NG/ML 0.46 NG/ML NG/ML (0.02-0.05) (0.02-0.05) (0.02-0.05) HDL Cholesterol 37.4 MG/DL (40.0-60.0) Test 07/26/16 07/26/16 07/26/16 07/27/16 12:54 15:28 19:35 05:15 Activated Partial 51.6 SEC 49.5 SEC 59.0 SEC Thromboplast Time (24.3-30.1) (24.3-30.1) (24.3-30.1) Urine Cannabinoids Screen POS (NEG) Red Blood Count 4.48 MIL/MM3 (4.50-5.90) Prothrombin Time 21.6 SEC (9.8-11.6) Chloride Level 108 MEQ/L (98-107) Calcium Level 7.9 MG/DL (8.5-10.1) Test 07/28/16 03:35 White Blood Count 11.1 TH/MM3 (4.0-11.0) Red Blood Count 4.28 MIL/MM3 (4.50-5.90) Monocytes (%) (Auto) 8.2 % (0.0-8.0) Activated Partial 36.4 SEC Thromboplast Time (24.3-30.1) Chloride Level 109 MEQ/L (98-107) Calcium Level 8.2 MG/DL (8.5-10.1) Cholesterol Level 119 MG/DL (120-200) HDL Cholesterol 34.8 MG/DL (40.0-60.0) Gbaby Robertson MD July 28, 2016 07:26
--- NOTE | 2016-07-28 07:28 | HHI.FF ---
Face to Face Verification Diagnosis: (1) H/O ischemic left MCA stroke (2) Aphasia (3) Spastic hemiplegia, dominant side (4) Abscess of buttock, right (5) Hyperlipidemia (6) Hypertension (7) NSTEMI (non-ST elevated myocardial infarction) (8) Premature ejaculation Physical Therapy Order: Evaluate and Treat Home Health Nursing Order: Medical education Signs/symptoms of disease process Medication education-adverse effect Nursing assessment with vital signs I have seen patient Jj Posey on 07/28/16. My clinical findings support the need for the requested home health care services because: Ltd mobility - disease progression I certify that my clinical findings support that this patient is homebound because: Post-op weakness Gabby Robertson MD July 28, 2016 07:28
--- NOTE | 2016-07-28 07:33 | HHI.PR ---
Subjective Remarks Patient is in the chair. Denies any chest pain or sob at this time. No n/v/d/c. Denies fever or chills. No cough. No n/v/d/c. Objective Vitals Vital Signs Date Time Temp Pulse Resp B/P Pulse Ox O2 Delivery O2 Flow Rate FiO2 07/28/16 04:00 60 07/28/16 03:01 97.9 64 20 157/90 98 07/28/16 03:00 55 07/28/16 02:00 62 07/28/16 01:00 70 07/28/16 00:00 72 07/27/16 23:45 98.0 67 20 157/77 95 07/27/16 23:00 72 07/27/16 22:00 70 07/27/16 21:00 76 07/27/16 20:00 76 07/27/16 19:20 96 Room Air 07/27/16 19:20 98.0 82 20 155/88 99 07/27/16 19:00 69 07/27/16 18:35 97.9 86 18 189/85 99 07/27/16 18:33 97.9 72 18 178/89 98 07/27/16 18:29 97.8 67 18 189/90 98 07/27/16 18:14 70 07/27/16 17:45 97.8 68 16 196/91 98 07/27/16 16:33 94 Room Air 07/27/16 12:00 96.7 64 20 171/90 98 07/27/16 09:47 Room Air 07/27/16 09:47 64 07/27/16 08:00 98.3 61 20 156/85 97 I/O 07/27/16 07/27/16 07/27/16 07/28/16 07/28/16 07/28/16 07:00 15:00 23:00 07:00 15:00 23:00 Intake Total 387 ml 480 ml 900 ml Output Total 300 ml 450 ml 1000 ml Balance 87 ml 30 ml -100 ml Intake Oral 480 ml 480 ml IV Total 387 ml 420 ml Output Urine Total 300 ml 450 ml 1000 ml # Voids 2 # Bowel Movements 0 Result Diagram: 07/28/1633407/28/16334 Imaging Last Impressions Chest X-Ray 07/25/162204 Signed Impressions: Service Date/Time: Monday, July 25, 2016 22:22 - CONCLUSION: 1. Mild bibasilar streakiness consistent with atelectasis, mild infiltrates and/or congestion. Clinical correlation is recommended. 2. Mild cardiomegaly. Uriel Plasencia MD Objective Remarks GENERAL: lying in bed. Appears comfortable. lying down flat after cardiac catheterization. SKIN: Warm and dry. HEAD: Normocephalic. EYES: No scleral icterus. No injection or drainage. NECK: Supple, trachea midline. CARDIOVASCULAR: Regular rate and rhythm without murmurs, gallops, or rubs. RESPIRATORY: Breath sounds equal bilaterally. No accessory muscle use. GASTROINTESTINAL: Abdomen soft, non-tender, nondistended. MUSCULOSKELETAL: No cyanosis, or edema. BACK: Nontender without obvious deformity. No CVA tenderness. A/P Problem List: (1) NSTEMI (non-ST elevated myocardial infarction) ICD Code: I21.4 Status: Acute (2) Hypertension ICD Code: I10 Status: Chronic (3) Hyperlipidemia ICD Code: E78.5 Status: Chronic Assessment and Plan 41-year-old male with history of HTN, HLD, CVA 5 years ago on Coumadin with residual right sided weakness and dysarthria/speech delay, presents with acute onset of chest pain prior to arrival. NSTEMI: patient presents with acute onset of chest pain with some typical and atypical components, reproduced with palpation, however relieved by aspirin/ nitro en route. +risk factors with tobacco use, HTN, HLD, prior CVA. -Troponins elevated 0.02 --> 0.19 --> 0.46, EKG with no acute ST elevation/ depression, nonspecific ST-T changes -Started on Heparin drip -lipid panel reviewed, wnl, check HgbA1c -continue aspirin, statin, nitro ointment q6h -patient with +marijuana use, denies cocaine use however will check UDS and if negative, consider starting BB -Cardiology consulted, requests neuro clearance prior to cardiac catheterization -monitor on telemetry -Echocardiogram with normal ejection fraction. -Status post stenting during cardiac catheterization 07/27. Repeat cardiac catheterization planned by cardiology. Appreciate assistance. Continue to monitor closely [facility]. - Plan for repeat cath to [facility] 07/29/16. NPO after midnight Hypertension, uncontrolled : chronic -I/15. Blood pressure elevated. Increased lisinopril to home dosing. Increase Coreg. Discontinue fluids. /16. BP into a higher side. Increased lisinopril. Monitor. 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 Appreciate assistance. Tobacco Use: chronic -counseled on cessation -avoid nicotine patch secondary to vasoconstriction with NSTEMI as above DVT Prophylaxis: on Heparin drip Discharge Planning home when cleared by cardiology. Plan for repeat cath 07/29/16 per cardiology. Neurology agrees with cath if INR < 2 . Restart coumadin after cath when cleared by cardio Gabby Robertson MD July 28, 2016 07:33
[2016-07-28] MEDS ORDERED: CARVEDILOL 3.125 MG TAB PO SCH (09:00)
[2016-07-28] MEDS ORDERED: RAMIPRIL 2.5 MG CAP PO SCH (09:00)
[2016-07-28] MEDS: CARVEDILOL 6.25 MG TAB PO SCH ×2 (09:15→20:01)
[2016-07-28] MEDS: CLOPIDOGREL 75 MG TAB PO SCH (09:15)
[2016-07-28] MEDS: LISINOPRIL 10 MG TAB PO SCH (09:16)
[2016-07-28] MEDS: SODIUM CHLORIDE 0.9% FLUSH 10 ML FLUSH SCH ×2 (09:16→20:03)
[2016-07-28] MEDS: ASPIRIN 81 MG CHEW TAB PO SCH (09:16)
[2016-07-28] MEDS: HEPARIN-D5W INJ 250 ML IV SCH (09:22)
--- NOTE | 2016-07-28 11:29 | MA ---
cc: MEENU CRANE M.D. DATE 07/27/2016 PROCEDURE PERFORMED Left heart catheterization, left arteriography, coronary angiography, direct PCI of bare metal stent to the mid-LAD. INDICATIONS Non-STEMI. Coronary disease. Tobacco use. Multiple cardiac risk factors. PROCEDURE The patient was brought to the cardiac catheterization laboratory, prepped and draped in the usual sterile fashion. 10 cc of 1% lidocaine was used to locally anesthetize the right common femoral artery. A 4-Ecuadorean sheath was successfully placed in the right common femoral artery. 4-Ecuadorean JR4 and JL4 catheters were used to perform left and right coronary angiography and left ventriculography. FINDINGS: LEFT VENTRICULOGRAPHY LV pressure is 180/11-12. Ejection fraction is 65%. CORONARY ANGIOGRAPHY The right coronary artery is dominant, has a proximal 20% stenosis. The right PDA has a 95% stenosis. The right posterolateral artery has an ostial 60% stenosis. The left main coronary artery has no significant disease angiographically. The left circumflex vessel has an ostial 40% stenosis, otherwise no significant obstructive disease. The first obtuse marginal vessel is a medium-sized vessel with no significant disease angiographically. The ramus intermedius vessel is a small to medium-sized vessel with a long 60% ostial proximal stenosis. The LAD has an 80% mid-stenosis. It is a large transapical vessel. The first diagonal artery is a medium to large-sized vessel with an ostial 50-60% stenosis. DISCUSSION At this point in time it is indeterminate which vessel is his culprit lesion. The patient presented with a non-STEMI with elevated troponin. I could not determine if this was the proximal LAD versus the proximal to mid-PDA as the proximal mid-LAD is higher risk due to the large amount of jeopardized myocardium. I thought it was medically necessary to proceed with direct PCI of the mid-LAD first. INTERVENTION Therefore, the 4-Ecuadorean sheath was exchanged for a 6-Ecuadorean sheath. The patient was given an additional 60 units/kg of heparin with ACT of 269. A 6-Ecuadorean XB 2.5 guide and a 0.014 Prowater guidewire and a 3.0/9 Integrity stent were used to directly stent the mid-LAD lesion with one inflation, 10 atmospheres for 20 seconds. The stenosis went from 80% to 0% with PAPI-3 flow. CONCLUSION 1. Non-STEMI. Indeterminate culprit lesion, 80% proximal mid-LAD versus 80-90% proximal mid-right PDA. 2. Otherwise 60-70% ostial proximal medium to large-sized first diagonal artery with a 30-degree angulation off the LAD. 3. Normal LV systolic function, ejection fraction 65%. 4. Successful direct PCI of the bare metal stent of the mid-LAD from 80% to 0% with PAPI-3 flow. RECOMMENDATIONS 1. Stage the right PDA tomorrow. We will keep that sheath in place. 2. Replace the patient on IV heparin infusion. 3. Start Plavix 600 mg p.o. load and then 75 mg a day for at least 12-15 months. 4. Aggrastat drip per protocol. 5. Aspirin 162 daily. 6. The has been strongly counseled by myself to discontinue tobacco use and marijuana use. MD COLLEEN Cline/MIMI /3:46 PM /11:04 AM
--- NOTE | 2016-07-28 13:23 | EKG ---
Date Performed: 07/28/2016 Time Performed: 06:05:16 PTAGE: 41 years EKG: Sinus rhythm Normal ECG PREVIOUS TRACING : 07/27/2016 21.47 Compared to prior tracing no significant change DOCTOR: Tamir Nieves Interpretating Date/Time 07/28/2016 13:22:12
--- NOTE | 2016-07-28 13:23 | EKG ---
Date Performed: 07/27/2016 Time Performed: 21:47:06 PTAGE: 41 years EKG: Sinus rhythm Inferior T wave changes are nonspecific Borderline ECG PREVIOUS TRACING : 07/26/2016 04.10 Compared to prior tracing no significant change DOCTOR: Tamir Nieves Interpretating Date/Time 07/28/2016 13:22:04
--- NOTE | 2016-07-28 14:58 | PD.CARD.PN ---
Subjective Subjective Remarks feels much better, more alert Objective Vital Signs / I&O Vital Signs Date Time Temp Pulse Resp B/P Pulse Ox O2 Delivery O2 Flow Rate FiO2 07/28/16 14:02 66 07/28/16 13:01 69 07/28/16 12:05 60 07/28/16 11:29 98.6 73 16 154/95 100 07/28/16 11:29 62 07/28/16 10:01 83 07/28/16 09:52 85 07/28/16 09:45 18 07/28/16 08:15 98.7 62 16 125/76 98 07/28/16 08:15 98 Room Air 07/28/16 08:15 57 07/28/16 04:00 60 07/28/16 03:01 97.9 64 20 157/90 98 07/28/16 03:00 55 07/28/16 02:00 62 07/28/16 01:00 70 07/28/16 00:00 72 07/27/16 23:45 98.0 67 20 157/77 95 07/27/16 23:00 72 07/27/16 22:00 70 07/27/16 21:00 76 07/27/16 20:00 76 07/27/16 19:20 96 Room Air 07/27/16 19:20 98.0 82 20 155/88 99 07/27/16 19:00 69 07/27/16 18:35 97.9 86 18 189/85 99 07/27/16 18:33 97.9 72 18 178/89 98 07/27/16 18:29 97.8 67 18 189/90 98 07/27/16 18:14 70 07/27/16 17:45 97.8 68 16 196/91 98 07/27/16 16:33 94 Room Air I/O 07/27/16 07/27/16 07/27/16 07/28/16 07/28/16 07/28/16 07:00 15:00 23:00 07:00 15:00 23:00 Intake Total 387 ml 480 ml 900 ml Output Total 300 ml 450 ml 1000 ml Balance 87 ml 30 ml -100 ml Intake Oral 480 ml 480 ml IV Total 387 ml 420 ml Output Urine Total 300 ml 450 ml 1000 ml # Voids 2 # Bowel Movements 0 Laboratory GENERAL: SKIN: Warm and dry. HEAD: Normocephalic. EYES: No scleral icterus. No injection or drainage. NECK: Supple, trachea midline. No JVD or lymphadenopathy. CARDIOVASCULAR: Regular rate and rhythm without murmurs, gallops, or rubs. RESPIRATORY: Breath sounds equal bilaterally. No accessory muscle use. GASTROINTESTINAL: Abdomen soft, non-tender, nondistended. MUSCULOSKELETAL: No cyanosis, or edema. BACK: Nontender without obvious deformity. No CVA tenderness. Laboratory Tests Test 07/28/16 03:35 White Blood Count 11.1 TH/MM3 Red Blood Count 4.28 MIL/MM3 Hemoglobin 13.2 GM/DL Hematocrit 39.6 % Mean Corpuscular Volume 92.4 FL Mean Corpuscular Hemoglobin 30.9 PG Mean Corpuscular Hemoglobin 33.4 % Concent Red Cell Distribution Width 15.7 % Platelet Count 205 TH/MM3 Mean Platelet Volume 8.1 FL Neutrophils (%) (Auto) 57.0 % Lymphocytes (%) (Auto) 32.7 % Monocytes (%) (Auto) 8.2 % Eosinophils (%) (Auto) 1.7 % Basophils (%) (Auto) 0.4 % Neutrophils # (Auto) 6.3 TH/MM3 Lymphocytes # (Auto) 3.6 TH/MM3 Monocytes # (Auto) 0.9 TH/MM3 Eosinophils # (Auto) 0.2 TH/MM3 Basophils # (Auto) 0.0 TH/MM3 CBC Comment DIFF FINAL Differential Comment Activated Partial 36.4 SEC Thromboplast Time Sodium Level 139 MEQ/L Potassium Level 3.9 MEQ/L Chloride Level 109 MEQ/L Carbon Dioxide Level 23.0 MEQ/L Anion Gap 7 MEQ/L Blood Urea Nitrogen 9 MG/DL Creatinine 0.84 MG/DL Estimat Glomerular Filtration 121 ML/MIN Rate Random Glucose 79 MG/DL Calcium Level 8.2 MG/DL Total Creatine Kinase 119 U/L Triglycerides Level 99 MG/DL Cholesterol Level 119 MG/DL LDL Cholesterol 64 MG/DL HDL Cholesterol 34.8 MG/DL Cholesterol/HDL Ratio 3.41 RATIO Assessment and Plan Problem List: (1) Hyperlipidemia (2) Hypertension (3) NSTEMI (non-ST elevated myocardial infarction) (4) H/O ischemic left MCA stroke (5) CAD (coronary artery disease) Assessment and Plan 1.) NSTEMI - indeterminate culprit lesion, s/p bms mid lad, 95% prox rpda, stage rpda basil, continue dapt, hep while off coumadin Greg Stafford MD July 28, 2016 14:58
[2016-07-28 15:55] LABS: APTT (PATIENT) 53.9 SEC (24.3-30.1)
[2016-07-28] MEDS: PRAVASTATIN SOD 20 MG TAB PO SCH (20:01)
[2016-07-28 22:03] LABS: APTT (PATIENT) 50.2 SEC (24.3-30.1)
[2016-07-29] VITALS (28 sets, daily range): BP systolic 130–169; BP diastolic 82–98; PULSE 57–77; RESP 16–18; TEMP 96.1–99.1; O2SAT 98–100
[2016-07-29] MEDS: NITROGLYCERIN 2% OINT 1 GM PACKET TOPICAL SCH ×4 (06:00→23:38)
[2016-07-29 06:54] LABS: AUTOMATED NEUTROPHIL # 5.9 TH/MM3 (1.8-7.7); BASOPHIL # 0.1 TH/MM3 (0-0.2); BASOPHIL % 0.5 % (0.0-2.0); EOSINOPHIL # 0.2 TH/MM3 (0-0.4); EOSINOPHIL % 2.1 % (0.0-4.0); HEMATOCRIT 39.6 % (39.0-51.0); HEMO FLAGS DIFF FINAL; LYMPH % 33.8 % (9.0-44.0); LYMPHOCYTE # 3.7 TH/MM3 (1.0-4.8); MEAN CELL VOLUME 92.1 FL (80.0-100.0); MEAN CORPUSCULAR HEMOGLOBIN 31.9 PG (27.0-34.0); MEAN CORPUSCULAR HGB CONC 34.7 % (32.0-36.0); MONO % 8.9 % (0.0-8.0); NEUT % 54.7 % (16.0-70.0); PLATELET COUNT 217 TH/MM3 (150-450); RED CELL DISTRIBUTION WIDTH 15.3 % (11.6-17.2); WHITE BLOOD COUNT 10.8 TH/MM3 (4.0-11.0)
[2016-07-29 06:59] LABS: APTT (PATIENT) 44.7 SEC (24.3-30.1)
[2016-07-29 07:10] LABS: BICARBONATE 24.2 MEQ/L (21.0-32.0); POTASSIUM 3.6 MEQ/L (3.5-5.1)
[2016-07-29] MEDS: SODIUM CHLORIDE 0.9% FLUSH 10 ML FLUSH SCH ×3 (08:15→21:29)
[2016-07-29] MEDS: ASPIRIN 81 MG CHEW TAB PO SCH (08:16)
[2016-07-29] MEDS: CLOPIDOGREL 75 MG TAB PO SCH (08:16)
[2016-07-29] MEDS: CARVEDILOL 6.25 MG TAB PO SCH ×2 (08:16→21:28)
[2016-07-29] MEDS: LISINOPRIL 10 MG TAB PO SCH (08:17)
[2016-07-29] MEDS: HEPARIN-D5W INJ 250 ML IV SCH (08:21)
--- NOTE | 2016-07-29 08:50 | HHI.PR ---
Subjective Remarks no complains of chest pains or shortness of breath, no groin pain, headaches, nausea or vomiting feels great unknown family history telemetry- in SR Objective Vitals Vital Signs Date Time Temp Pulse Resp B/P Pulse Ox O2 Delivery O2 Flow Rate FiO2 07/29/16 08:00 68 07/29/16 07:21 70 07/29/16 07:00 99.1 71 16 148/82 100 07/29/16 07:00 100 Room Air 07/29/16 06:00 62 07/29/16 05:00 58 07/29/16 04:00 58 07/29/16 03:20 98.7 62 16 130/83 99 07/29/16 03:00 61 07/29/16 02:00 60 07/29/16 01:00 66 07/29/16 00:00 64 07/28/16 23:45 98.8 60 16 143/79 99 07/28/16 23:00 61 07/28/16 22:00 68 07/28/16 21:00 68 07/28/16 20:00 80 07/28/16 19:50 99.0 69 16 150/88 100 07/28/16 19:50 98 Room Air 07/28/16 19:00 87 07/28/16 18:44 83 07/28/16 17:03 68 07/28/16 16:10 83 07/28/16 15:25 98.0 73 16 152/94 99 07/28/16 15:25 75 07/28/16 14:02 66 07/28/16 13:01 69 07/28/16 12:05 60 07/28/16 11:29 98.6 73 16 154/95 100 07/28/16 11:29 62 07/28/16 10:01 83 07/28/16 09:52 85 07/28/16 09:45 18 I/O 07/28/16 07/28/16 07/28/16 07/29/16 07/29/16 07/29/16 07:00 15:00 23:00 07:00 15:00 23:00 Intake Total 900 ml 680 ml 360 ml Output Total 1000 ml 750 ml 950 ml Balance -100 ml -70 ml -590 ml Intake Oral 480 ml 480 ml 360 ml IV Total 420 ml 200 ml Output Urine Total 1000 ml 750 ml 950 ml # Bowel Movements 0 Result Diagram: 07/29/16 0553 07/29/16 0553 Imaging Last Impressions Chest X-Ray 07/25/16 2205 Signed Impressions: Service Date/Time: Monday, July 25, 2016 22:22 - CONCLUSION: 1. Mild bibasilar streakiness consistent with atelectasis, mild infiltrates and/or congestion. Clinical correlation is recommended. 2. Mild cardiomegaly. Uriel Plasencia MD Objective Remarks awake, and alert, NAD, mild dysarthria anicteric no nuchal rigidity, no bruit lungs clear regular rhythm abdomen soft, nontender groin - no hematoma very mild right RUE weakness no calf swelling or tenderness gait testing deferred Procedures 07/28- cardiac catheterization A/P Problem List: (1) NSTEMI (non-ST elevated myocardial infarction) ICD Code: I21.4 Status: Acute (2) Hypertension ICD Code: I10 Status: Chronic (3) Hyperlipidemia ICD Code: E78.5 Status: Chronic Assessment and Plan 41-year-old male with history of HTN, HLD, CVA 5 years ago on Coumadin with residual right sided weakness and dysarthria/speech delay, presents with acute onset of chest pain prior to arrival. ACS- NSTEMI: patient presents with acute onset of chest pain with some typical and atypical components, reproduced with palpation, however relieved by aspirin/ nitro en route. +risk factors with tobacco use, HTN, HLP, prior CVA. S/P cardiac cath- 07/27- Normal LV function 65% -going for another cath this noon- attempt to stent -PDA lesion -Troponins elevated 0.02 --> 0.19 --> 0.46, EKG with no acute ST elevation/ depression, nonspecific ST-T changes -on Heparin drip, Plavix, ASA, Coreg, YUMIKO, Pravachol -monitor on telemetry -Echocardiogram with normal ejection fraction. Hypertension,- better readings : chronic. 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 Plan for repeat cath 07/29/16 per cardiology. Neurology agrees with cath if INR < 2 . Restart coumadin after cath when cleared by cardio Cristian Whittington MD July 29, 2016 08:50 Cristian Whittington MD July 29, 2016 08:50
[2016-07-29] MEDS ORDERED: HEPARIN-NS/PF INJ 500 ML ONE (12:10)
[2016-07-29] MEDS ORDERED: TIROFIBAN INFUSION INJ 250 ML IV ONE (12:24)
[2016-07-29] MEDS ORDERED: NITROGLYCERIN-DEXTROSE INJ 250 ML ONE (12:33)
[2016-07-29] MEDS ORDERED: NITROGLYCERIN 2% OINT 1 GM PACKET ONE (12:49)
[2016-07-29] MEDS ORDERED: MISC INFORMATION XX ONE (13:00)
[2016-07-29] MEDS ORDERED: SODIUM CHLORIDE 0.9% FLUSH 10 ML FLUSH PRN (13:00)
[2016-07-29] MEDS: TIROFIBAN INFUSION INJ 250 ML IV SCH (13:00)
--- NOTE | 2016-07-29 13:15 | CATHPROC ---
[employer] HIS Report Study Information Study Number Scheduled Start Study Start [id number] 07/29/2016 Jul 29 2016 12:00PM Referring Institution Admit Source Facility Department 1 Other [facility] - Occ Med Physician Physician and Clinical Staff Initial Greg Rausch [employer] SupervisorRadha Elder,BSRN [employer] SupervisorColumba Arrieta,RN Recorder Oumar Baldwin,RT(R) TECH2 Scrub Lio Qureshi,RT(R) Procedures Performed Procedure Location (Site) Vessel Name L Heart Cath PTCA ADD ON'S Stent RCA Dist Right Coronary Wire insertion Fem Art (right) Femoral Art Equipment Time Legal Examiner Description Size Mfg Part Number Used/Scraped [id number] 12:37 [employer] WIRE, ASAHI PROWATER 180CM 180CM Used *[id number] TRANSDUCER, TRUWAVE 12:01 Splice Machine * [id number] Used W/[employer] [id number] *[id number] 12:01 [employer] PACK, CCL CUSTOM * Used *[id number] 12:01 Reflectance Medical PACER PEN, SKIN DUAL W/ RULER * [id number] Used [id number] 12:47 MEDTRONIC STENT, 3.0 9 INTEGRITY 3.0 9 Used *[id number] 12:38 [employer] MEDICAL 30 CHENCHO INDEFLATOR Used *[id number] 12:02 [employer] MEDICAL SHEATH, FR6.5 PRELUDE 11CM FR 6.5 038ACT Used *[id number] 12:01 [employer] MEDICAL WIRE, 3MMJ .035 180CM 180CM Used *[id number] 12:01 NAMIC MANIFOLD, 4 PORT * Used *[id number] 12:01 NYCOMED OMNIPAQUE, 350 MG, 100ML 100ML [id number] Used [id number] 12:01 Loaded Pocket MEDICAL BLANKET,WARM AIR CCL * Used *[id number] Equipment Model, Serial, Lot Number and Expiration Data Description Model Number Serial Number Lot Number Expiration Date SHEATH, FR6.5 PRELUDE 11CM [id number] 06-13-2019 STENT, 3.0 9 INTEGRITY [id number] 04-06-2018 History: Current Medications Medication Dosage/Unit Route Frequency Last Date/Time Taken ASA Statins (any) Coumadin NTG Patch History: Allergies Allergy Reaction No Known Allergies History: Risk Factors Family History of Hypertension Dyslipidemia Previous ND Previous Heart Failure Premature CAD Yes Yes No No No Prior Valve Prior PCI Prior CABG Surgery No No No Cerebrovascular Peripheral Artery Chronic Lung On Dialysis Diabetes Disease Disease Disease No Yes No No No History: Symptoms/Diagnosis Selection Items Chest pain History: CV Disease Selection Items Known CAD History: Stress Tests Stress or Imaging Studies Performed No History: Other Disease Selection Items CAD HTN History: Other Current Smoker Method Packs a Day Years Used Pack Years Yes Cigarettes 1 6 6 Labs Hgb (g/dl) Hct (%) WBC (l/cumm) Platelets (thousands) 12.00-18.00 37.00-55.00 4.80-10.80 140.00-450.00 13.7 39.6 10.8 217 BUN (mg/dl) Creatinine (mg/dl) BUN:Creatinine (1:x) 8.00-20.00 0.10-9.00 10.00-20.00 9 0.8 11.3 Na (meq/l) K (meq/l) 138.00-146.00 3.80-5.10 139 3.6 CPK-MB (ng/ML) 0.00-7.00 Not Drawn Medication Medication Total Dose (Bolus/Oral) Medication Total Dosage/Unit 1% XYLOCAINE 20 mL AGGRASTAT BOLUS 39.4 meq/kg HEPARIN 5000 units NITRO OINTMENT 2 inches Medications (Bolus/Oral) Medication Time Given Dosage/Unit Administered By Reason 1% XYLOCAINE 07/29/2016 12:37:32 PM 20 mL Greg Stafford 20 mL 1% XYLOCAINE given in lab by Greg Stafford in Right Groin via Subcutaneous. Ordered by Greg Boles. HEPARIN 07/29/2016 12:44:23 PM 5000 units Radha Baldwin 5000 units HEPARIN given in lab by Radha Baldwin BSRN via Peripheral IV. Ordered by Merrick Stafford. NITRO OINTMENT 07/29/2016 12:54:00 PM 2 inches Columba Westfall 2 inches NITRO OINTMENT given in lab by Columba Westfall, RN via Peripheral IV. Ordered by Greg Stafford. AGGRASTAT BOLUS 07/29/2016 1:07:22 PM 39.4 meq/kg Columba Westfall 39.4 meq/kg AGGRASTAT BOLUS given in lab by Columba Westfall, THIERNO via Peripheral IV. Amount given = 3 207.16 meq. Ordered by Greg Stafford. Medication (Drip) Medication Time Given Dosage/Unit Concentration/Unit Diluent (ml) Solution AGGRASTAT DRIP 07/29/2016 12:44:00 PM 0.145 mcg/kg/min 12.5 mg 250 NaCl .9 0.145 mcg/kg/min AGGRASTAT DRIP given in lab by Columba Westfall, RN via Peripheral IV. Pump/Drip Fl ow = 14.2 ml/hr using NaCl .9 with a concentration of 12.5 mg in 250 ml. Ordered by Greg Stafford. HEPARIN DRIP STOPPED 07/29/2016 12:00:00 PM 0 units/hr 0 0 units/hr HEPARIN DRIP STOPPED given in lab by Radha aBldwin BSRN. Pump/Drip Flow = 0 ml/hr usin g [Solution Name]. Ordered by Greg Stafford. IV Solutions 07/29/2016 12:20:48 PM 0 mL (IV) 500 NaCl .9 Patient arrived on IV Solutions via Peripheral IV. Pump/Drip Flow = 20 ml/hr using NaCl .9. Ordered Greg Larios. NITROGLYCERIN DRIP 07/29/2016 12:40:16 PM 10 mcg/min 50 mg 250 D5W 10 mcg/min NITROGLYCERIN DRIP given in lab by Radha Baldwin BSRN via Peripheral IV. Pump/Drip Carlos w = 3 ml/hr using D5W with a concentration of 50 mg in 250 ml. Ordered by Greg Stafford. NITROGLYCERIN DRIP 07/29/2016 12:44:00 PM 40 mcg/min 50 mg 250 D5W 40 mcg/min NITROGLYCERIN DRIP given in lab by Radha Baldwin BSRN via Peripheral IV. Pump/Drip Carlos w = 12 ml/hr using D5W with a concentration of 50 mg in 250 ml. Ordered by Greg Stafford. NITROGLYCERIN DRIP 07/29/2016 12:48:49 PM 50 mcg/min 50 mg 250 D5W 50 mcg/min NITROGLYCERIN DRIP given in lab by Radha Baldwin BSRN via Peripheral IV. Pump/Drip Carlos w = 15 ml/hr using D5W with a concentration of 50 mg in 250 ml. Ordered by Greg Stafford. Initial Case Assessment Cardiovascular HR Rhythm NIBP Chest Pain 61 sr 201/105 0 Edema Present Skin color Skin None Normal Warm Dry Circulatory - Right Pulses Dorsalis Pedis Femoral 2 2 Scale (0,1,2,3,4,d) Circulatory - Left Pulses Dorsalis Pedis Femoral 2 2 Scale (0,1,2,3,4,d) Circulatory - Lower Extremities Color Lower Right Color Lower Left Normal Normal Neurological State Oriented to time-place- Alert Moves all extremities person Respiration - General SpO2 (%) 100 Final Case Assessment Cardiovascular Rhythm NIBP Chest Pain sr 193/103 0 Edema Present Skin color Skin None Normal Warm Dry Circulatory - Right Pulses Dorsalis Pedis Femoral 2 2 Scale (0,1,2,3,4,d) Circulatory - Left Pulses Dorsalis Pedis Femoral 2 2 Scale (0,1,2,3,4,d) Circulatory - Lower Extremities Color Lower Right Color Lower Left Normal Normal Neurological State Oriented to time-place- Alert Moves all extremities person Respiration - General SpO2 (%) 100 Chronological Log Time Study Chronological Log 0 units/hr HEPARIN DRIP STOPPED given in lab by Radha Baldwin, BSRN. Pump/Drip Flow = 0 ml/h r using [Solution 12:00:00 Name]. Ordered by Greg Stafford. 12:15:00 Patient arrived via Bed. 12:17:14 Reference ECG taken Vitals capture started with the following parameters, Patient=Adult, Interval=5 min, Initial Pr yawbyp=679 mmHg, 12:17:19 Deflation Rate=5 mmHg 12:18:39 HR=63 bpm, RDZN=074/117 mmhg, OnK0=560.0 %, Resp=28 B/min, Pain=0, Mihir=10, Miguel=2 12:20:31 Patient Name, D.O.B, / Armband Verified By R.N. 12:20:32 Consent signed by the physician and the patient and verified by the Occ Med Physician staff. 12:20:38 Patient has been NPO for Less than 6Hrs. 12:20:39 Skin Breakdown- none 12:20:40 Patient Warmer Placed on the Table. 12:20:45 Susie Prominences Protected 12:20:47 A # 20 IV was noted in the Forearm (left). Grade = 0 Patient arrived on IV Solutions via Peripheral IV. Pump/Drip Flow = 20 ml/hr using NaCl .9. Ord ered by Nydia, 12:20:48 Gerg. 12:20:49 History and physical on the chart or being dictated. Assessment: Initial Case, HR=61 BPM, Rhythm=sr, RJHH=481/105 mmhg, Chest Pain=0, Edema=None, Co cole=Normal, Skin = Warm, Dry Right Pulses: Arcadio Ped=2, Femoral=2 Left Pulses: Arcadio Ped=2, Femoral=2 12:20:50 Lower Right Extremities: Color=Normal Lower Left Extremities: Color=Normal Neurological: State=Alert, Ox3, VALENTINE Respiration: WbR6=852 % 12:20:54 Table restraints applied according to hospital policy Bilateral groins prepped with 2% chlorhexidine, and with a 3 min. waiting time. rt. groin has s mall hematoma from 12:20:58 previous cath 12:23:05 HR=61 bpm, AUUM=443/105 mmhg, OsD2=165.0 %, Resp=19 B/min, Pain=0, Mihir=10, Miguel=2 12:27:54 Pressure channel 1 zeroed. 12:28:06 HR=60 bpm, WUJB=082/97 mmhg, PfO1=898.0 %, Resp=17 B/min, Pain=0, Mihir=10, Miguel=2 12:33:09 HR=60 bpm, XJZA=023/103 mmhg, XnR4=276.0 %, Resp=0 B/min, Pain=0, Mihir=10, Miguel=2 12:34:25 NIBP STAT measurement started. 12:35:14 HR=62 bpm, NDHY=693/101 mmhg, SpO2=99.0 %, Resp=8 B/min, Pain=0, Mihir=10, Miguel=2 12:37:09 A Left Heart Cath was performed. Time Out. Correct patient, correct procedure,correct physician, ,power injector loaded or not l oaded with contrast with 12:37:19 surgical team present. Time Out Concurred by MD, individual staff and ARTIFICIAL STONE APPLICATOR in procedure 12:37:26 Case Start 20 mL 1% XYLOCAINE given in lab by Greg Stafford in Right Groin via Subcutaneous. Ordered by Nydia, 12:37:32 Greg. 12:37:49 OMNIPAQUE, 350 MG, 100ML 100ML and 30 CHENCHO INDEFLATOR added. 12:38:19 Access site was Right Femoral Artery. 12:38:49 HR=66 bpm, IDVL=220/115 mmhg, JyJ1=600.0 %, Resp=23 B/min, Pain=0, Mihir=10, Miguel=2 12:39:07 A SHEATH, FR6.5 PRELUDE 11CM FR 6.5 was advanced into the Fem Art (right) using the Modifrufino raya Seldinger technique. 10 mcg/min NITROGLYCERIN DRIP given in lab by Radha Baldwin BSRN via Peripheral IV. Pump/Dr ip Flow = 3 ml/hr 12:40:16 using D5W with a concentration of 50 mg in 250 ml. Ordered by Greg Stafford. 12:40:57 Activated Clotting Time Drawn A JR 4.0 GUIDE CATHETER FR 6 was advanced over a wire. OMNIPAQUE, 350 MG, 100ML 100ML was used for 12:41:29 injections. Recorded Pressure: Ao, HR=63, Condition=Condition 1 12:42:23 (Aorta) Ao 200/94/134 12:43:09 HR=59 bpm, OCTG=626/105 mmhg, UyI4=608.0 %, Resp=22 B/min, Pain=0, Mihir=10, Miguel=2 40 mcg/min NITROGLYCERIN DRIP given in lab by Radha Baldwin BSRN via Peripheral IV. Pump/Dr ip Flow = 12 12:44:00 ml/hr using D5W with a concentration of 50 mg in 250 ml. Ordered by Greg Stafford. 0.145 mcg/kg/min AGGRASTAT DRIP given in lab by Columba Westfall, THIERNO via Peripheral IV. Pump/D rip Flow = 14.2 12:44:00 ml/hr using NaCl .9 with a concentration of 12.5 mg in 250 ml. Ordered by Greg Stafford. 12:44:23 5000 units HEPARIN given in lab by Radha Baldwin BSRN via Peripheral IV. Ordered by Greg Werner. 12:45:05 A WIRE, [employer] PROWATER 180CM 180CM was inserted via Fem Art (right). An STENT, 3.0 9 INTEGRITY 3.0 9 Bare Metal Stent was inserted through a JR 4.0 GUIDE CATHETER F R 6 over a 12:46:14 WIRE, ASAHI PROWATER 180CM 180CM. 12:46:45 NIBP STAT measurement started. A STENT, 3.0 9 INTEGRITY 3.0 9 was deployed using a 30 CHENCHO INDEFLATOR at 10 atmospheres for 15 seconds in the 12:46:52 RCA Dist. 12:47:30 HR=76 bpm, YLJQ=043/98 mmhg, SpO2=98.0 %, Resp=7 B/min, Pain=0, Mihir=10, Miguel=2 12:47:39 Delivery device removed PCI QA completed: Pre-Rafat - 3, Post Rafat - 3, Type - A, Length - 4 mm, Morphology - Concentric , Indications - Lesion 12:47:50 > 50 non-stem, Pre-Stenosis - 80% and Post Stenosis - 0%. 50 mcg/min NITROGLYCERIN DRIP given in lab by Radha Baldwin BSRN via Peripheral IV. Pump/D rip Flow = 15 12:48:49 ml/hr using D5W with a concentration of 50 mg in 250 ml. Ordered by Greg Stafford. 12:53:44 HR=72 bpm, RLJX=078/103 mmhg, SpO2=97.0 %, Resp=15 B/min, Pain=0, Mihir=10, Miguel=2 12:54:00 2 inches NITRO OINTMENT given in lab by Columba Westfall, RN via Peripheral IV. Ordered b y Greg Stafford. 12:56:00 ACT (Normal Range 90-180) = 269 12:57:44 Case End Assessment: Final Case, Rhythm=sr, FDFY=003/103 mmhg, Chest Pain=0, Edema=None, Color=Normal, Skin = Warm, Dry Right Pulses: Arcadio Ped=2, Femoral=2 Left Pulses: Arcadio Ped=2, Femoral=2 12:57:59 Lower Right Extremities: Color=Normal Lower Left Extremities: Color=Normal Neurological: State=Alert, Ox3, VALENTINE Respiration: HiM3=183 % 13:01:23 Patient moved to stretcher 39.4 meq/kg AGGRASTAT BOLUS given in lab by Westfall, Columba, RN via Peripheral IV. Amount gi ghada = 3207.16 13:07:22 meq. Ordered by Greg Stafford. End Study - Contrast Media Used In Study Contrast Total Opened (mL) Total Used (mL) Total Wasted (mL) Omnipaque 150 50 100 End Study - Maximum Contrast Load Max Contrast Load (mL) 508.8 End Study - Radiation Exposure Fluoro Time (minutes) 2.7 End Study - Patient Disposition Complications Transferred To Interventional Outcome No Telemetry Bed successful
[2016-07-29] MEDS ORDERED: HEPARIN SODIUM - IV 10,000 UNITS/10 ML VIAL ONE (13:20)
[2016-07-29] MEDS ORDERED: IOHEXOL 350 MG/ML 50 ML BTL (for Cath Lab) OTHER ONE (14:22)
[2016-07-29] MEDS: ACETAMINOPHEN 325 MG TAB PO PRN ×2 (15:08→23:38)
[2016-07-29] MEDS ORDERED: cloNIDine HCL 0.1 MG TAB PO PRN (16:45)
[2016-07-29] MEDS ORDERED: oxyCODONE/ACETAMINOPHEN 5 MG/325 MG TAB PO ONE (16:45)
[2016-07-29] MEDS ORDERED: EPINEPHrine HCL (1:10,000) 1 MG/10 ML SYRINGE ONE (16:51)
[2016-07-29] MEDS ORDERED: ATROPINE SULFATE 1 MG/10 ML SYRINGE ONE (16:51)
--- NOTE | 2016-07-29 19:09 | MR ---
cc: GREG CRANE M.D. DATE 07/29/16 PROCEDURE PERFORMED Direct PCI bare metal stent of the proximate right posterior descending coronary artery. INDICATION Non-STEMI coronary artery disease, stage PCI of the right PDA. NOTE The patient had a proximate LAD lesion, culprit for the non-STEMI was indeterminate. I did choose to proceed with PCI of the proximate LAD as this is higher risk lesion due to the greater amount of jeopardized myocardium. I do think the PDA lesion was probably the culprit as it was a high-grade lesion, 90% and hazy, suspicious for unstable plaque. The patient was brought to the cardiac catheterization laboratory, prepped and draped in the usual sterile fashion. 10 ccs of 1% lidocaine was used to locally anesthetize the right common femoral artery. 6-Wolof sheath placed in the right common femoral artery. 7 units per kilo of heparin was given. Note, the initial ACT was 168. The patient was given 7 units per kilo of heparin. 6-Wolof JR-4 guide 0.014 P[place]ater guidewire and a 309 Integrity stent were used to directly stent the right PDA lesion, one inflation 10 atmospheres for 20 seconds, stenosis went from 90% to 0% with PAPI III flow. CONCLUSION 1. Successful direct PCI bare metal stent of the proximate right PDA from 90% to 0% with PAPI-III flow. RECOMMENDATIONS Continue Plavix 75 milligrams a day for 12 to 15 months. Aspirin 162 daily. Medical management of coronary artery disease. Will also resume heparin 6 hours after the sheath is removed due to the patient's history of CVA and chronic anticoagulation with Coumadin. Will restart Coumadin tomorrow provided there is no bleeding. Will also treat the patient with ____ drip per protocol. Final ACT 269. Greg Crane MD AWC/EO /12:57 PM /6:49 PM
[2016-07-29] MEDS: PRAVASTATIN SOD 20 MG TAB PO SCH (21:28)
[2016-07-29] MEDS ORDERED: HEPARIN-D5W INJ 250 ML IV SCH (23:00)
[2016-07-30] VITALS (26 sets, daily range): BP systolic 117–161; BP diastolic 73–89; PULSE 57–83; RESP 16–20; TEMP 98–99.2; O2SAT 97–99
[2016-07-30] MEDS: TIROFIBAN INFUSION INJ 250 ML IV SCH (00:55)
[2016-07-30] MEDS: NITROGLYCERIN 2% OINT 1 GM PACKET TOPICAL SCH ×3 (03:53→18:00)
[2016-07-30 04:44] LABS: AUTOMATED NEUTROPHIL # 5.6 TH/MM3 (1.8-7.7); BASOPHIL # 0.1 TH/MM3 (0-0.2); BASOPHIL % 1.1 % (0.0-2.0); EOSINOPHIL # 0.2 TH/MM3 (0-0.4); EOSINOPHIL % 1.9 % (0.0-4.0); HEMATOCRIT 40.8 % (39.0-51.0); HEMO FLAGS DIFF FINAL; LYMPH % 31.8 % (9.0-44.0); LYMPHOCYTE # 3.2 TH/MM3 (1.0-4.8); MEAN CELL VOLUME 92.8 FL (80.0-100.0); MEAN CORPUSCULAR HEMOGLOBIN 30.8 PG (27.0-34.0); MEAN CORPUSCULAR HGB CONC 33.1 % (32.0-36.0); MONO % 8.8 % (0.0-8.0); NEUT % 56.4 % (16.0-70.0); PLATELET COUNT 198 TH/MM3 (150-450); RED BLOOD COUNT 4.39 MIL/MM3 (4.50-5.90); RED CELL DISTRIBUTION WIDTH 15.6 % (11.6-17.2)
[2016-07-30 05:12] LABS: BICARBONATE 27.4 MEQ/L (21.0-32.0); POTASSIUM 3.8 MEQ/L (3.5-5.1)
[2016-07-30] MEDS: LISINOPRIL 10 MG TAB PO SCH (08:12)
[2016-07-30] MEDS: CARVEDILOL 6.25 MG TAB PO SCH ×2 (08:13→21:58)
[2016-07-30] MEDS: CLOPIDOGREL 75 MG TAB PO SCH (08:13)
[2016-07-30] MEDS: SODIUM CHLORIDE 0.9% FLUSH 10 ML FLUSH SCH ×4 (08:13→21:59)
[2016-07-30] MEDS: ASPIRIN 81 MG CHEW TAB PO SCH (08:13)
--- NOTE | 2016-07-30 11:13 | HHI.PR ---
Subjective Remarks feels great, no chest pains or shortness of breath reviewed BP readings- some elevated SBPs Objective Vitals Vital Signs Date Time Temp Pulse Resp B/P Pulse Ox O2 Delivery O2 Flow Rate FiO2 07/30/16 10:03 65 07/30/16 09:00 64 07/30/16 08:00 68 07/30/16 07:26 98.0 78 18 161/89 99 07/30/16 07:00 60 07/30/16 06:00 57 07/30/16 05:00 61 07/30/16 04:03 60 07/30/16 03:30 98.8 72 16 141/73 99 07/30/16 03:00 62 07/30/16 02:00 62 07/30/16 01:00 67 07/30/16 00:00 61 07/29/16 23:30 98.7 57 16 169/90 98 07/29/16 23:00 57 07/29/16 22:00 58 07/29/16 21:00 64 07/29/16 20:00 66 07/29/16 19:30 98 Room Air 07/29/16 19:30 99.0 71 18 143/87 98 07/29/16 19:00 61 07/29/16 18:00 70 07/29/16 17:00 70 07/29/16 16:00 67 07/29/16 15:00 96.1 71 16 155/86 99 07/29/16 15:00 77 07/29/16 14:51 60 07/29/16 13:00 68 07/29/16 12:00 68 I/O 07/29/16 07/29/16 07/29/16 07/30/16 07/30/16 07/30/16 07:00 15:00 23:00 07:00 15:00 23:00 Intake Total 360 ml 711 ml 389 ml Output Total 950 ml 400 ml 1170 ml Balance -590 ml 311 ml -781 ml Intake Oral 360 ml 300 ml 240 ml IV Total 411 ml 149 ml Output Urine Total 950 ml 400 ml 1170 ml # Bowel Movements 0 0 Result Diagram: 07/30/16 0332 07/30/16 033 Imaging Last Impressions Chest X-Ray 07/25/162204 Signed Impressions: Service Date/Time: Monday, July 25, 2016 22:22 - CONCLUSION: 1. Mild bibasilar streakiness consistent with atelectasis, mild infiltrates and/or congestion. Clinical correlation is recommended. 2. Mild cardiomegaly. Uriel Plasencia MD Objective Remarks awake, and alert, NAD, mild dysarthria anicteric no nuchal rigidity, no bruit lungs clear regular rhythm abdomen soft, nontender groin - no hematoma very mild right RUE weakness no calf swelling or tenderness gait steady Procedures 07/28- cardiac catheterization 07/29- cardiac cath with PCI bare metal stent of right PDA A/P Problem List: (1) NSTEMI (non-ST elevated myocardial infarction) ICD Code: I21.4 Status: Acute (2) Hypertension ICD Code: I10 Status: Chronic (3) Hyperlipidemia ICD Code: E78.5 Status: Chronic Assessment and Plan 41-year-old male with history of HTN, HLD, CVA 5 years ago on Coumadin with residual right sided weakness and dysarthria/speech delay, presents with acute onset of chest pain prior to arrival. ACS- NSTEMI: patient presents with acute onset of chest pain with some typical and atypical components, reproduced with palpation, however relieved by aspirin/ nitro en route. +risk factors with tobacco use, HTN, HLP, prior CVA. S/P PCI right PDA with bare metal stent- 07/29 , cardiac cath- 07/27- Normal LV function 65% Hypertension- some elevated SBPs -on Plavix, ASA, Coreg, YUMIKO, Pravachol, start coumadin. ff INR - Increase Lisinipril to 30 mg daily. Restart HCTZ 12.5 mg po daily -Echocardiogram with normal ejection fraction. - dr. Stafford ff Hyperlipidemia: chronic -continue patient's statin Chronic CVA with Residual Right Sided Deficit and Dysarthria: chronic -monitor neuro checks -continue aspirin/Plavix Tobacco Use: chronic- counselled extensively -counseled on cessation -avoid nicotine patch secondary to vasoconstriction with NSTEMI as above DVT Prophylaxis: on Heparin drip Discharge Planning home when cleared by cardiology. Cristian Whittington MD July 30, 2016 11:13 Cristian Whittington MD July 30, 2016 11:13
[2016-07-30] MEDS ORDERED: LISINOPRIL 10 MG TAB PO ONE (11:15)
[2016-07-30] MEDS: HYDROCHLOROTHIAZIDE 12.5 MG CAP PO SCH (12:05)
--- NOTE | 2016-07-30 12:36 | PD.CARD.PN ---
Subjective Subjective Remarks alert in nad Objective Vital Signs / I&O GENERAL: SKIN: Warm and dry. HEAD: Normocephalic. EYES: No scleral icterus. No injection or drainage. NECK: Supple, trachea midline. No JVD or lymphadenopathy. CARDIOVASCULAR: Regular rate and rhythm without murmurs, gallops, or rubs. RESPIRATORY: Breath sounds equal bilaterally. No accessory muscle use. GASTROINTESTINAL: Abdomen soft, non-tender, nondistended. MUSCULOSKELETAL: No cyanosis, or edema. BACK: Nontender without obvious deformity. No CVA tenderness. Vital Signs Date Time Temp Pulse Resp B/P Pulse Ox O2 Delivery O2 Flow Rate FiO2 07/30/16 10:03 65 07/30/16 09:00 64 07/30/16 08:00 68 07/30/16 07:26 98.0 78 18 161/89 99 07/30/16 07:00 60 07/30/16 06:00 57 07/30/16 05:00 61 07/30/16 04:03 60 07/30/16 03:30 98.8 72 16 141/73 99 07/30/16 03:00 62 07/30/16 02:00 62 07/30/16 01:00 67 07/30/16 00:00 61 07/29/16 23:30 98.7 57 16 169/90 98 07/29/16 23:00 57 07/29/16 22:00 58 07/29/16 21:00 64 07/29/16 20:00 66 07/29/16 19:30 98 Room Air 07/29/16 19:30 99.0 71 18 143/87 98 07/29/16 19:00 61 07/29/16 18:00 70 07/29/16 17:00 70 07/29/16 16:00 67 07/29/16 15:00 96.1 71 16 155/86 99 07/29/16 15:00 77 07/29/16 14:51 60 07/29/16 13:00 68 I/O 07/29/16 07/29/16 07/29/16 07/30/16 07/30/16 07/30/16 07:00 15:00 23:00 07:00 15:00 23:00 Intake Total 360 ml 711 ml 389 ml Output Total 950 ml 400 ml 1170 ml Balance -590 ml 311 ml -781 ml Intake Oral 360 ml 300 ml 240 ml IV Total 411 ml 149 ml Output Urine Total 950 ml 400 ml 1170 ml # Bowel Movements 0 0 Laboratory Laboratory Tests Test 07/30/16 03:32 White Blood Count 10.0 TH/MM3 Red Blood Count 4.39 MIL/MM3 Hemoglobin 13.5 GM/DL Hematocrit 40.8 % Mean Corpuscular Volume 92.8 FL Mean Corpuscular Hemoglobin 30.8 PG Mean Corpuscular Hemoglobin 33.1 % Concent Red Cell Distribution Width 15.6 % Platelet Count 198 TH/MM3 Mean Platelet Volume 8.1 FL Neutrophils (%) (Auto) 56.4 % Lymphocytes (%) (Auto) 31.8 % Monocytes (%) (Auto) 8.8 % Eosinophils (%) (Auto) 1.9 % Basophils (%) (Auto) 1.1 % Neutrophils # (Auto) 5.6 TH/MM3 Lymphocytes # (Auto) 3.2 TH/MM3 Monocytes # (Auto) 0.9 TH/MM3 Eosinophils # (Auto) 0.2 TH/MM3 Basophils # (Auto) 0.1 TH/MM3 CBC Comment DIFF FINAL Differential Comment Sodium Level 140 MEQ/L Potassium Level 3.8 MEQ/L Chloride Level 107 MEQ/L Carbon Dioxide Level 27.4 MEQ/L Anion Gap 6 MEQ/L Blood Urea Nitrogen 10 MG/DL Creatinine 0.83 MG/DL Estimat Glomerular Filtration 123 ML/MIN Rate Random Glucose 70 MG/DL Calcium Level 8.9 MG/DL Total Creatine Kinase 104 U/L Assessment and Plan Problem List: (1) Hyperlipidemia (2) Hypertension (3) NSTEMI (non-ST elevated myocardial infarction) (4) H/O ischemic left MCA stroke (5) CAD (coronary artery disease) Assessment and Plan 1.) NSTEMI - indeterminate culprit lesion, s/p bms mid lad and 95% prox rpda, stage rpda basil, continue dapt, hep bridge, continue coumadin, d/w Greg Cabral MD July 30, 2016 12:36
[2016-07-30 13:11] LABS: INTERNATIONAL NORMALIZED RATIO 1.1 RATIO; PROTHROMBIN TIME - PATIENT 11.8 SEC (9.8-11.6)
--- NOTE | 2016-07-30 14:08 | EKG ---
Date Performed: 07/29/2016 Time Performed: 15:08:06 PTAGE: 41 years EKG: Sinus rhythm . Right axis deviation Lateral infarct - age undetermined Tall R V1/V2 probably reflect the infarct I nferior T wave changes are nonspecific Repeat tracing recommended, suspect limb lead reversal however cannot rule out new lateral wall infarct. Clinical correlation and repeat tracing is recommended Abn ormal ECG PREVIOUS TRACING : 07/28/2016 06.05 DOCTOR: Cayden Navarro Interpretating Date/Time 07/30/2016 14:07:41
[2016-07-30] MEDS: HEPARIN 25,000 UNITS-D5W 250 ML - PREMIX IV SCH (14:11)
[2016-07-30] MEDS: WARFARIN SOD 5 MG TAB PO SCH (16:39)
[2016-07-30] MEDS ORDERED: WARFARIN SOD 5 MG TAB PO ONE (18:00)
[2016-07-30 21:05] LABS: APTT (PATIENT) 46.7 SEC (24.3-30.1)
[2016-07-30] MEDS: PRAVASTATIN SOD 20 MG TAB PO SCH (21:58)
[2016-07-31] VITALS (34 sets, daily range): BP systolic 111–142; BP diastolic 65–86; PULSE 55–90; RESP 16–20; TEMP 98–99; O2SAT 97–100
[2016-07-31 05:36] LABS: APTT (PATIENT) 50.6 SEC (24.3-30.1); PROTHROMBIN TIME - PATIENT 11.4 SEC (9.8-11.6)
[2016-07-31] MEDS: NITROGLYCERIN 2% OINT 1 GM PACKET TOPICAL SCH ×4 (06:00→17:03)
[2016-07-31] MEDS: SODIUM CHLORIDE 0.9% FLUSH 10 ML FLUSH SCH ×4 (09:00→21:59)
--- NOTE | 2016-07-31 10:12 | PD.CARD.PN ---
Subjective Subjective Remarks alert in nad Objective Vital Signs / I&O Vital Signs Date Time Temp Pulse Resp B/P Pulse Ox O2 Delivery O2 Flow Rate FiO2 07/31/16 08:00 98.7 90 16 142/86 99 07/31/16 08:00 66 07/31/16 06:10 62 07/31/16 05:07 64 07/31/16 04:16 98.0 72 18 127/70 97 07/31/16 04:15 55 07/31/16 03:28 69 07/31/16 02:01 60 07/31/16 01:00 60 07/31/16 00:00 99.0 67 18 125/68 97 07/31/16 00:00 78 07/30/16 22:00 75 07/30/16 21:00 70 07/30/16 20:00 63 07/30/16 20:00 99.2 71 20 135/85 97 07/30/16 19:00 71 07/30/16 18:18 67 07/30/16 17:03 66 07/30/16 16:00 62 07/30/16 15:20 98.7 77 18 117/77 99 07/30/16 15:00 83 07/30/16 14:00 64 07/30/16 13:16 68 07/30/16 12:00 65 07/30/16 11:00 98.2 72 18 141/80 98 07/30/16 11:00 62 I/O 07/30/16 07/30/16 07/30/16 07/31/16 07/31/16 07/31/16 07:00 15:00 23:00 07:00 15:00 23:00 Intake Total 389 ml 518 ml 348 ml Output Total 1170 ml 200 ml 600 ml Balance -781 ml 318 ml -252 ml Intake Oral 240 ml 480 ml 240 ml IV Total 149 ml 38 ml 108 ml Output Urine Total 1170 ml 200 ml 600 ml # Voids 6 # Bowel Movements 0 0 0 Physical Exam GENERAL: SKIN: Warm and dry. HEAD: Normocephalic. EYES: No scleral icterus. No injection or drainage. NECK: Supple, trachea midline. No JVD or lymphadenopathy. CARDIOVASCULAR: Regular rate and rhythm without murmurs, gallops, or rubs. RESPIRATORY: Breath sounds equal bilaterally. No accessory muscle use. GASTROINTESTINAL: Abdomen soft, non-tender, nondistended. MUSCULOSKELETAL: No cyanosis, or edema. BACK: Nontender without obvious deformity. No CVA tenderness. Laboratory Laboratory Tests Test 07/30/16 07/30/16 07/31/16 12:26 20:28 04:22 Prothrombin Time 11.8 SEC 11.4 SEC Prothromb Time International 1.1 RATIO 1.0 RATIO Ratio Activated Partial 46.7 SEC 50.6 SEC Thromboplast Time Assessment and Plan Problem List: (1) Hyperlipidemia (2) Hypertension (3) NSTEMI (non-ST elevated myocardial infarction) (4) H/O ischemic left MCA stroke (5) CAD (coronary artery disease) Assessment and Plan 1.) NSTEMI - indeterminate culprit lesion, s/p bms mid lad and 95% prox rpda, stage rpda basil, continue dapt, hep bridge, continue coumadin, d/w Greg Cabral MD July 31, 2016 10:12
[2016-07-31] MEDS: ASPIRIN 81 MG CHEW TAB PO SCH (10:23)
[2016-07-31] MEDS: CLOPIDOGREL 75 MG TAB PO SCH (10:23)
[2016-07-31] MEDS: LISINOPRIL 10 MG TAB PO SCH (10:23)
[2016-07-31] MEDS: CARVEDILOL 6.25 MG TAB PO SCH ×2 (10:23→21:58)
[2016-07-31] MEDS: HYDROCHLOROTHIAZIDE 12.5 MG CAP PO SCH (10:24)
--- NOTE | 2016-07-31 14:49 | HHI.PR ---
Subjective Remarks feels great, no headaches, nausea or vomiting supported Mom inside the room Objective Vitals Vital Signs Date Time Temp Pulse Resp B/P Pulse Ox O2 Delivery O2 Flow Rate FiO2 07/31/16 14:13 69 07/31/16 13:16 81 07/31/16 12:50 72 07/31/16 12:49 98.6 72 16 124/82 100 07/31/16 12:48 72 07/31/16 10:20 78 07/31/16 08:05 75 07/31/16 08:00 98.7 90 16 142/86 99 07/31/16 08:00 66 07/31/16 06:10 62 07/31/16 05:07 64 07/31/16 04:16 98.0 72 18 127/70 97 07/31/16 04:15 55 07/31/16 03:28 69 07/31/16 02:01 60 07/31/16 01:00 60 07/31/16 00:00 99.0 67 18 125/68 97 07/31/16 00:00 78 07/30/16 22:00 75 07/30/16 21:00 70 07/30/16 20:00 63 07/30/16 20:00 99.2 71 20 135/85 97 07/30/16 19:00 71 07/30/16 18:18 67 07/30/16 17:03 66 07/30/16 16:00 62 07/30/16 15:20 98.7 77 18 117/77 99 07/30/16 15:00 83 I/O 07/30/16 07/30/16 07/30/16 07/31/16 07/31/16 07/31/16 07:00 15:00 23:00 07:00 15:00 23:00 Intake Total 389 ml 518 ml 348 ml Output Total 1170 ml 200 ml 600 ml Balance -781 ml 318 ml -252 ml Intake Oral 240 ml 480 ml 240 ml IV Total 149 ml 38 ml 108 ml Output Urine Total 1170 ml 200 ml 600 ml # Voids 6 # Bowel Movements 0 0 0 Result Diagram: 07/30/16 0332 07/30/16 033 Imaging Last Impressions Chest X-Ray 07/25/166 Signed Impressions: Service Date/Time: Monday, July 25, 2016 22:22 - CONCLUSION: 1. Mild bibasilar streakiness consistent with atelectasis, mild infiltrates and/or congestion. Clinical correlation is recommended. 2. Mild cardiomegaly. Uriel Plasencia MD Objective Remarks awake, and alert, NAD, mild dysarthria anicteric no nuchal rigidity, no bruit lungs clear regular rhythm abdomen soft, nontender groin - no hematoma very mild right RUE weakness no calf swelling or tenderness gait steady Procedures 07/28- cardiac catheterization 07/29- cardiac cath with PCI bare metal stent of right PDA A/P Problem List: (1) NSTEMI (non-ST elevated myocardial infarction) ICD Code: I21.4 Status: Acute (2) Hypertension ICD Code: I10 Status: Chronic (3) Hyperlipidemia ICD Code: E78.5 Status: Chronic Assessment and Plan 41-year-old male with history of HTN, HLD, CVA 5 years ago on Coumadin with residual right sided weakness and dysarthria/speech delay, presents with acute onset of chest pain prior to arrival. ACS- NSTEMI: patient presents with acute onset of chest pain with some typical and atypical components, reproduced with palpation, however relieved by aspirin/ nitro en route. +risk factors with tobacco use, HTN, HLP, prior CVA. S/P PCI right PDA with bare metal stent- 07/29 , cardiac cath- 07/27- Normal LV function 65% Hypertension-improved -on Plavix, ASA, Coreg, YUMIKO, Pravachol, start coumadin. ff INR- on 5 mg daily. give extra 2.5 mg today - Lisinipril to 30 mg daily. Restart HCTZ 12.5 mg po daily -Echocardiogram with normal ejection fraction. - dr. Stafford ff Hyperlipidemia: chronic -continue patient's statin Chronic CVA with Residual Right Sided Deficit and Dysarthria: chronic -monitor neuro checks -continue aspirin/Plavix Tobacco Use: chronic- counselled extensively -counseled on cessation -avoid nicotine patch secondary to vasoconstriction with NSTEMI as above DVT Prophylaxis: on Heparin drip Discharge Planning home when cleared by cardiology. DC ff up with PCP Cristian Whittington MD July 31, 2016 14:49
[2016-07-31] MEDS: HEPARIN 25,000 UNITS-D5W 250 ML - PREMIX IV SCH (15:34)
[2016-07-31] MEDS: WARFARIN SOD 5 MG TAB PO SCH (15:35)
[2016-07-31] MEDS ORDERED: WARFARIN SOD 2.5 MG TAB PO ONE (16:00)
[2016-07-31] MEDS: PRAVASTATIN SOD 20 MG TAB PO SCH (21:58)
--- NOTE | 2016-07-31 22:07 | EKG ---
Date Performed: 07/30/2016 Time Performed: 05:21:36 PTAGE: 41 years EKG: Sinus rhythm Inferior T wave changes are nonspecific Borderline ECG PREVIOUS TRACING : 07/29/2016 15.08 Compared to prior tracing no significant change DOCTOR: Pedro Alexander Interpretating Date/Time 07/31/2016 22:06:29
[2016-08-01] VITALS (29 sets, daily range): BP systolic 110–128; BP diastolic 62–81; PULSE 58–96; RESP 14–20; TEMP 98.1–98.7; O2SAT 98–100
[2016-08-01 04:57] LABS: MEAN CELL VOLUME 92.2 FL (80.0-100.0); MEAN CORPUSCULAR HEMOGLOBIN 31.5 PG (27.0-34.0); MEAN CORPUSCULAR HGB CONC 34.1 % (32.0-36.0); PLATELET COUNT 235 TH/MM3 (150-450); RED BLOOD COUNT 4.67 MIL/MM3 (4.50-5.90); RED CELL DISTRIBUTION WIDTH 15.7 % (11.6-17.2); REVIEW FLAG FINAL; WHITE BLOOD COUNT 9.7 TH/MM3 (4.0-11.0)
[2016-08-01 05:16] LABS: INTERNATIONAL NORMALIZED RATIO 1.1 RATIO; PROTHROMBIN TIME - PATIENT 12.6 SEC (9.8-11.6)
[2016-08-01 05:20] LABS: APTT (PATIENT) 61.8 SEC (24.3-30.1)
[2016-08-01] MEDS: NITROGLYCERIN 2% OINT 1 GM PACKET TOPICAL SCH ×6 (06:00→23:57)
[2016-08-01] MEDS: SODIUM CHLORIDE 0.9% FLUSH 10 ML FLUSH SCH ×4 (09:00→21:12)
[2016-08-01] MEDS: HYDROCHLOROTHIAZIDE 12.5 MG CAP PO SCH (09:07)
[2016-08-01] MEDS: LISINOPRIL 10 MG TAB PO SCH (09:07)
[2016-08-01] MEDS: ASPIRIN 81 MG CHEW TAB PO SCH (09:08)
[2016-08-01] MEDS: CLOPIDOGREL 75 MG TAB PO SCH (09:08)
[2016-08-01] MEDS: CARVEDILOL 6.25 MG TAB PO SCH ×2 (09:08→21:11)
--- NOTE | 2016-08-01 11:45 | PD.CARD.PN ---
Subjective Subjective Remarks alert in nad Objective Vital Signs / I&O Vital Signs Date Time Temp Pulse Resp B/P Pulse Ox O2 Delivery O2 Flow Rate FiO2 08/01/16 10:33 96 08/01/16 08:02 71 08/01/16 07:15 58 08/01/16 06:00 65 08/01/16 05:00 62 08/01/16 04:00 62 08/01/16 03:22 62 08/01/16 03:21 98.4 62 20 118/68 98 08/01/16 02:20 64 08/01/16 01:00 62 08/01/16 00:08 62 08/01/16 00:00 98.7 64 20 110/69 98 07/31/16 23:00 62 07/31/16 22:00 63 07/31/16 21:00 65 07/31/16 20:00 70 07/31/16 20:00 99.0 79 20 119/65 99 07/31/16 19:00 79 07/31/16 17:11 65 07/31/16 17:00 66 07/31/16 16:00 66 07/31/16 16:00 67 07/31/16 15:31 98.5 78 16 111/75 98 07/31/16 15:26 84 07/31/16 15:25 84 07/31/16 15:00 84 07/31/16 14:13 69 07/31/16 14:00 64 07/31/16 13:16 81 07/31/16 13:00 74 07/31/16 12:50 72 07/31/16 12:49 98.6 72 16 124/82 100 07/31/16 12:48 72 07/31/16 12:00 68 I/O 07/31/16 07/31/16 07/31/16 08/01/16 08/01/16 08/01/16 07:00 15:00 23:00 07:00 15:00 23:00 Intake Total 348 ml 181 ml 348 ml Output Total 600 ml 950 ml Balance -252 ml 181 ml -602 ml Intake Oral 240 ml 60 ml 240 ml IV Total 108 ml 121 ml 108 ml Output Urine Total 600 ml 950 ml # Voids 5 # Bowel Movements 0 0 0 Physical Exam GENERAL: SKIN: Warm and dry. HEAD: Normocephalic. EYES: No scleral icterus. No injection or drainage. NECK: Supple, trachea midline. No JVD or lymphadenopathy. CARDIOVASCULAR: Regular rate and rhythm without murmurs, gallops, or rubs. RESPIRATORY: Breath sounds equal bilaterally. No accessory muscle use. GASTROINTESTINAL: Abdomen soft, non-tender, nondistended. MUSCULOSKELETAL: No cyanosis, or edema. BACK: Nontender without obvious deformity. No CVA tenderness. Laboratory Laboratory Tests Test 08/01/16 03:15 White Blood Count 9.7 TH/MM3 Red Blood Count 4.67 MIL/MM3 Hemoglobin 14.7 GM/DL Hematocrit 43.0 % Mean Corpuscular Volume 92.2 FL Mean Corpuscular Hemoglobin 31.5 PG Mean Corpuscular Hemoglobin 34.1 % Concent Red Cell Distribution Width 15.7 % Platelet Count 235 TH/MM3 Mean Platelet Volume 8.5 FL Prothrombin Time 12.6 SEC Prothromb Time International 1.1 RATIO Ratio Activated Partial 61.8 SEC Thromboplast Time Assessment and Plan Problem List: (1) Hyperlipidemia (2) Hypertension (3) NSTEMI (non-ST elevated myocardial infarction) (4) H/O ischemic left MCA stroke (5) CAD (coronary artery disease) Assessment and Plan 1.) NSTEMI - indeterminate culprit lesion, s/p bms mid lad and 95% prox rpda, stage rpda basil, continue dapt, hep bridge, continue coumadin, d/w Greg Cabral MD August 01, 2016 11:45
--- NOTE | 2016-08-01 14:09 | HHI.PR ---
Subjective Remarks no complains patient up and ambulating telemetry - SR Objective Vitals Vital Signs Date Time Temp Pulse Resp B/P Pulse Ox O2 Delivery O2 Flow Rate FiO2 08/01/16 13:30 77 08/01/16 12:00 98.3 74 16 126/76 99 08/01/16 12:00 82 08/01/16 10:33 96 08/01/16 08:02 71 08/01/16 07:15 58 08/01/16 06:00 65 08/01/16 05:00 62 08/01/16 04:00 62 08/01/16 03:22 62 08/01/16 03:21 98.4 62 20 118/68 98 08/01/16 02:20 64 08/01/16 01:00 62 08/01/16 00:08 62 08/01/16 00:00 98.7 64 20 110/69 98 07/31/16 23:00 62 07/31/16 22:00 63 07/31/16 21:00 65 07/31/16 20:00 70 07/31/16 20:00 99.0 79 20 119/65 99 07/31/16 19:00 79 07/31/16 17:11 65 07/31/16 17:00 66 07/31/16 16:00 66 07/31/16 16:00 67 07/31/16 15:31 98.5 78 16 111/75 98 07/31/16 15:26 84 07/31/16 15:25 84 07/31/16 15:00 84 07/31/16 14:13 69 I/O 07/31/16 07/31/16 07/31/16 08/01/16 08/01/16 08/01/16 07:00 15:00 23:00 07:00 15:00 23:00 Intake Total 348 ml 181 ml 348 ml Output Total 600 ml 950 ml Balance -252 ml 181 ml -602 ml Intake Oral 240 ml 60 ml 240 ml IV Total 108 ml 121 ml 108 ml Output Urine Total 600 ml 950 ml # Voids 5 # Bowel Movements 0 0 0 Result Diagram: 08/01/16 0315 07/30/16 0332 Imaging Last Impressions Chest X-Ray 07/25/162204 Signed Impressions: Service Date/Time: Monday, July 25, 2016 22:22 - CONCLUSION: 1. Mild bibasilar streakiness consistent with atelectasis, mild infiltrates and/or congestion. Clinical correlation is recommended. 2. Mild cardiomegaly. Uriel Plasencia MD Objective Remarks awake, and alert, NAD, mild dysarthria anicteric no nuchal rigidity, no bruit lungs clear regular rhythm abdomen soft, nontender groin - no hematoma, no leg swelling very mild right RUE weakness no calf swelling or tenderness gait steady Procedures 07/28- cardiac catheterization 07/29- cardiac cath with PCI bare metal stent of right PDA A/P Problem List: (1) NSTEMI (non-ST elevated myocardial infarction) ICD Code: I21.4 Status: Acute (2) Hypertension ICD Code: I10 Status: Chronic (3) Hyperlipidemia ICD Code: E78.5 Status: Chronic Assessment and Plan 41-year-old male with history of HTN, HLD, CVA 5 years ago on Coumadin with residual right sided weakness and dysarthria/speech delay, presents with acute onset of chest pain prior to arrival. ACS- NSTEMI: patient presents with acute onset of chest pain with some typical and atypical components, reproduced with palpation, however relieved by aspirin/ nitro en route. +risk factors with tobacco use, HTN, HLP, prior CVA. S/P PCI right PDA with bare metal stent- 07/29 , cardiac cath- 07/27- Normal LV function 65% Hypertension-improved -on Plavix, ASA, Coreg, YUMIKO, Pravachol, start coumadin. ff INR- on 5 mg daily. give extra 2.5 mg today again - Lisinipril to 30 mg daily. Restart HCTZ 12.5 mg po daily -Echocardiogram with normal ejection fraction. -Dr. Stafford ff Hyperlipidemia: -continue patient's statin Chronic CVA with Residual Right Sided Deficit and Dysarthria: chronic -monitor neuro checks -continue aspirin/Plavix Tobacco Use: chronic- counselled extensively -counseled on cessation -avoid nicotine patch secondary to vasoconstriction with NSTEMI as above DVT Prophylaxis: on Heparin drip Discharge Planning home when cleared by cardiology.with therapeutic INR DC ff up with PCP Cristian Whittington MD August 01, 2016 14:09
[2016-08-01] MEDS ORDERED: WARFARIN SOD 3 MG TAB PO ONE (16:00)
[2016-08-01] MEDS: WARFARIN SOD 5 MG TAB PO SCH (16:46)
[2016-08-01] MEDS: HEPARIN 25,000 UNITS-D5W 250 ML - PREMIX IV SCH (18:29)
[2016-08-01] MEDS: PRAVASTATIN SOD 20 MG TAB PO SCH (21:11)
[2016-08-01] MEDS: ACETAMINOPHEN 325 MG TAB PO PRN (23:56)
[2016-08-02] VITALS (28 sets, daily range): BP systolic 101–172; BP diastolic 50–99; PULSE 60–102; RESP 16–24; TEMP 98–98.8; O2SAT 98–100
[2016-08-02] MEDS ORDERED: MORPHINE SULFATE 4 MG/ML INJ IV ONE (01:15)
[2016-08-02] MEDS: NITROGLYCERIN 2% OINT 1 GM PACKET TOPICAL SCH (05:15)
--- NOTE | 2016-08-02 08:39 | HHI.PR ---
Subjective Remarks up o chair- having breakfast-po 100% no chest pains or shortness of breath now brief episode of chest pain last evening, no nausea or vomiting c/o slight headache Objective Vitals Vital Signs Date Time Temp Pulse Resp B/P Pulse Ox O2 Delivery O2 Flow Rate FiO2 08/02/16 05:00 72 08/02/16 04:00 68 08/02/16 04:00 98.0 89 16 105/71 100 08/02/16 03:00 66 08/02/16 02:00 72 08/02/16 01:30 64 115/70 08/02/16 01:00 60 08/02/16 01:00 63 124/75 08/02/16 00:32 142/90 08/02/16 00:23 172/99 08/02/16 00:00 82 08/02/16 00:00 98.1 70 24 114/75 100 08/01/16 23:00 66 08/01/16 22:00 62 08/01/16 21:00 80 08/01/16 20:00 98.1 73 18 125/76 99 08/01/16 20:00 73 08/01/16 19:00 68 08/01/16 18:25 78 08/01/16 17:35 69 08/01/16 16:08 72 08/01/16 15:44 98.3 68 14 128/62 98 08/01/16 15:11 80 08/01/16 14:31 90 08/01/16 13:30 77 08/01/16 12:00 98.3 74 16 126/76 99 08/01/16 12:00 82 08/01/16 11:00 76 08/01/16 10:33 96 08/01/16 10:00 84 08/01/16 09:00 78 I/O 08/01/16 08/01/16 08/01/16 08/02/16 08/02/16 08/02/16 07:00 15:00 23:00 07:00 15:00 23:00 Intake Total 348 ml 1067 ml 315 ml Output Total 950 ml 550 ml Balance -602 ml 1067 ml -235 ml Intake Oral 240 ml 1000 ml 240 ml IV Total 108 ml 67 ml 75 ml Output Urine Total 950 ml 550 ml # Voids 5 # Bowel Movements 0 0 Result Diagram: 08/01/16 0315 07/30/16 0332 Imaging Last Impressions Chest X-Ray 07/25/164 Signed Impressions: Service Date/Time: Monday, July 25, 2016 22:22 - CONCLUSION: 1. Mild bibasilar streakiness consistent with atelectasis, mild infiltrates and/or congestion. Clinical correlation is recommended. 2. Mild cardiomegaly. Uriel Plasencia MD Objective Remarks awake, and alert, NAD, mild dysarthria anicteric no nuchal rigidity, no bruit lungs clear regular rhythm abdomen soft, nontender very mild right RUE weakness no calf swelling or tenderness gait steady Procedures 07/28- cardiac catheterization 07/29- cardiac cath with PCI bare metal stent of right PDA A/P Problem List: (1) NSTEMI (non-ST elevated myocardial infarction) ICD Code: I21.4 Status: Acute (2) Hypertension ICD Code: I10 Status: Chronic (3) Hyperlipidemia ICD Code: E78.5 Status: Chronic Assessment and Plan 41-year-old male with history of HTN, HLD, CVA 5 years ago on Coumadin with residual right sided weakness and dysarthria/speech delay, presents with acute onset of chest pain prior to arrival. ACS- NSTEMI: patient presents with acute onset of chest pain with some typical and atypical components, reproduced with palpation, however relieved by aspirin/ nitro en route. +risk factors with tobacco use, HTN, HLP, prior CVA. S/P PCI right PDA with bare metal stent- 07/29 , cardiac cath- 07/27- Normal LV function 65% Hypertension-improved -on Plavix, ASA, Coreg, YUMIKO, Pravachol, start coumadin. ff INR- on 5 mg daily. FF INR - Lisinopril to 30 mg daily. Restart HCTZ 12.5 mg po daily. Nitrates -Echocardiogram with normal ejection fraction. -Dr. Stafford ff Hyperlipidemia: -continue patient's statin Chronic CVA with Residual Right Sided Deficit and Dysarthria: chronic -monitor neuro checks -continue aspirin/Plavix Tobacco Use: chronic- counselled extensively- "no more" -counseled on cessation -avoid nicotine patch secondary to vasoconstriction with NSTEMI as above DVT Prophylaxis: on Heparin drip Discharge Planning home when cleared by cardiology.with therapeutic INR DC ff up with PCP Cristian Whittington MD August 02, 2016 08:39
[2016-08-02] MEDS: ISOSORBIDE MONONITRATE 30 MG TAB PO SCH (08:45)
[2016-08-02] MEDS: CLOPIDOGREL 75 MG TAB PO SCH (08:52)
[2016-08-02] MEDS: HYDROCHLOROTHIAZIDE 12.5 MG CAP PO SCH (08:52)
[2016-08-02] MEDS: ASPIRIN 81 MG CHEW TAB PO SCH (08:52)
[2016-08-02] MEDS: CARVEDILOL 6.25 MG TAB PO SCH ×2 (08:52→21:36)
[2016-08-02] MEDS: SODIUM CHLORIDE 0.9% FLUSH 10 ML FLUSH SCH ×4 (08:53→21:37)
[2016-08-02] MEDS: LISINOPRIL 10 MG TAB PO SCH (08:53)
--- NOTE | 2016-08-02 09:37 | PD.CARD.PN ---
Subjective Subjective Remarks had severe chest pain last night Objective Vital Signs / I&O Vital Signs Date Time Temp Pulse Resp B/P Pulse Ox O2 Delivery O2 Flow Rate FiO2 08/02/16 05:00 72 08/02/16 04:00 68 08/02/16 04:00 98.0 89 16 105/71 100 08/02/16 03:00 66 08/02/16 02:00 72 08/02/16 01:30 64 115/70 08/02/16 01:00 60 08/02/16 01:00 63 124/75 08/02/16 00:32 142/90 08/02/16 00:23 172/99 08/02/16 00:00 82 08/02/16 00:00 98.1 70 24 114/75 100 08/01/16 23:00 66 08/01/16 22:00 62 08/01/16 21:00 80 08/01/16 20:00 98.1 73 18 125/76 99 08/01/16 20:00 73 08/01/16 19:00 68 08/01/16 18:25 78 08/01/16 17:35 69 08/01/16 16:08 72 08/01/16 15:44 98.3 68 14 128/62 98 08/01/16 15:11 80 08/01/16 14:31 90 08/01/16 13:30 77 08/01/16 12:00 98.3 74 16 126/76 99 08/01/16 12:00 82 08/01/16 11:00 76 08/01/16 10:33 96 08/01/16 10:00 84 I/O 08/01/16 08/01/16 08/01/16 08/02/16 08/02/16 08/02/16 07:00 15:00 23:00 07:00 15:00 23:00 Intake Total 348 ml 1067 ml 315 ml Output Total 950 ml 550 ml Balance -602 ml 1067 ml -235 ml Intake Oral 240 ml 1000 ml 240 ml IV Total 108 ml 67 ml 75 ml Output Urine Total 950 ml 550 ml # Voids 5 # Bowel Movements 0 0 Physical Exam GENERAL: SKIN: Warm and dry. HEAD: Normocephalic. EYES: No scleral icterus. No injection or drainage. NECK: Supple, trachea midline. No JVD or lymphadenopathy. CARDIOVASCULAR: Regular rate and rhythm without murmurs, gallops, or rubs. RESPIRATORY: Breath sounds equal bilaterally. No accessory muscle use. GASTROINTESTINAL: Abdomen soft, non-tender, nondistended. MUSCULOSKELETAL: No cyanosis, or edema. BACK: Nontender without obvious deformity. No CVA tenderness. Laboratory Laboratory Tests Test 08/02/16 08/02/16 00:34 06:27 Total Creatine Kinase 119 U/L Troponin I 0.23 NG/ML 0.56 NG/ML Assessment and Plan Problem List: (1) Hyperlipidemia (2) Hypertension (3) NSTEMI (non-ST elevated myocardial infarction) (4) H/O ischemic left MCA stroke (5) CAD (coronary artery disease) Assessment and Plan 1.) NSTEMI - indeterminate culprit lesion, s/p bms mid lad and 95% prox rpda, stage rpda basil, continue dapt, hep bridge, continue coumadin, d/w Dr Saba; recurrent cp and trop elevation ? due to spasm and or bifucation disease @ diag with lad and/or rpds with rpla; these would be difficulat to stent due to @ 30 degree angulation of branch vessels; i think it is reasonable to try him on nitrates for spasm and continue omt for branch vessel disease, dapt, pravastatin , lisinopril, coreg; i rec'd cath and the patient refuses Greg Stafford MD August 02, 2016 09:37
[2016-08-02 10:50] LABS: APTT (PATIENT) 67.2 SEC (24.3-30.1)
[2016-08-02 11:02] LABS: INTERNATIONAL NORMALIZED RATIO 1.3 RATIO; PROTHROMBIN TIME - PATIENT 14.2 SEC (9.8-11.6)
[2016-08-02] MEDS: WARFARIN SOD 5 MG TAB PO SCH (15:38)
--- NOTE | 2016-08-02 16:44 | EKG ---
Date Performed: 08/02/2016 Time Performed: 00:06:26 PTAGE: 41 years EKG: Sinus bradycardia LVH with secondary repolarization abnormality Extensive ST-T changes may be due to hypertrophy and/or ischemia Compared to previous tracing, the patient now has marked ST dep ression with T wave inversions, potentially consistent with ischemia Clinical correlation is suggeste d Abnormal ECG PREVIOUS TRACING : 07/30/2016 05.21 DOCTOR: Desiree Sheppard Interpretating Date/Time 08/02/2016 16:41:40
--- NOTE | 2016-08-02 16:45 | EKG ---
Date Performed: 08/02/2016 Time Performed: 06:34:44 PTAGE: 41 years EKG: Sinus rhythm Compared to previous tracing, the ST segments have returned to baseline Normal ECG NO PREVIOUS TRACING DOCTOR: Desiree Sheppard Interpretating Date/Time 08/02/2016 16:42:00
[2016-08-02] MEDS: PRAVASTATIN SOD 20 MG TAB PO SCH (21:36)
[2016-08-02] MEDS: HEPARIN 25,000 UNITS-D5W 250 ML - PREMIX IV SCH (22:18)
[2016-08-03] VITALS (26 sets, daily range): BP systolic 105–130; BP diastolic 65–78; PULSE 62–112; RESP 16–18; TEMP 97.9–98.6; O2SAT 97–100
[2016-08-03 05:14] LABS: APTT (PATIENT) 73.8 SEC (24.3-30.1); INTERNATIONAL NORMALIZED RATIO 1.4 RATIO; PROTHROMBIN TIME - PATIENT 15.2 SEC (9.8-11.6)
[2016-08-03] MEDS: ISOSORBIDE MONONITRATE 30 MG TAB PO SCH (05:32)
[2016-08-03] MEDS: ASPIRIN 81 MG CHEW TAB PO SCH (08:11)
[2016-08-03] MEDS: LISINOPRIL 10 MG TAB PO SCH (08:11)
[2016-08-03] MEDS: HYDROCHLOROTHIAZIDE 12.5 MG CAP PO SCH (08:11)
[2016-08-03] MEDS: CARVEDILOL 6.25 MG TAB PO SCH ×2 (08:11→21:30)
[2016-08-03] MEDS: CLOPIDOGREL 75 MG TAB PO SCH (08:11)
[2016-08-03] MEDS: SODIUM CHLORIDE 0.9% FLUSH 10 ML FLUSH SCH ×4 (08:12→21:31)
--- NOTE | 2016-08-03 13:20 | EKG ---
Date Performed: 08/02/2016 Time Performed: 16:24:12 PTAGE: 41 years EKG: Sinus rhythm Normal ECG Compared to prior tracing no significant change PREVIOUS TRACING : 08/02/2016 06.34 DOCTOR: Girma Rojas Interpretating Date/Time 08/03/2016 13:17:46
--- NOTE | 2016-08-03 13:30 | PD.CARD.PN ---
Subjective Subjective Remarks denies recurrent chest pain, in nad, alert Objective Vital Signs / I&O Vital Signs Date Time Temp Pulse Resp B/P Pulse Ox O2 Delivery O2 Flow Rate FiO2 08/03/16 12:01 81 08/03/16 11:01 97.9 89 16 114/74 100 08/03/16 11:00 83 08/03/16 10:01 104 08/03/16 09:00 112 08/03/16 08:01 97.9 87 16 129/70 100 08/03/16 08:00 94 08/03/16 07:01 83 08/03/16 06:00 74 08/03/16 05:00 62 08/03/16 04:00 62 08/03/16 03:00 66 08/03/16 03:00 98.3 68 18 113/70 100 08/03/16 02:00 62 08/03/16 01:03 70 08/03/16 00:00 66 08/02/16 23:00 98.7 76 18 119/70 100 08/02/16 23:00 83 08/02/16 22:00 75 08/02/16 21:00 73 08/02/16 20:00 74 08/02/16 19:00 98.8 78 18 102/65 99 08/02/16 19:00 78 08/02/16 18:00 82 08/02/16 17:00 84 08/02/16 16:00 81 08/02/16 15:30 98.7 82 18 101/50 98 08/02/16 15:00 83 08/02/16 14:00 102 I/O 08/02/16 08/02/16 08/02/16 08/03/16 08/03/16 08/03/16 07:00 15:00 23:00 07:00 15:00 23:00 Intake Total 315 ml 650 ml 240 ml Output Total 550 ml 550 ml Balance -235 ml 650 ml -310 ml Intake Oral 240 ml 600 ml 240 ml IV Total 75 ml 50 ml Output Urine Total 550 ml 550 ml # Voids 4 # Bowel Movements 0 Physical Exam GENERAL: SKIN: Warm and dry. HEAD: Normocephalic. EYES: No scleral icterus. No injection or drainage. NECK: Supple, trachea midline. No JVD or lymphadenopathy. CARDIOVASCULAR: Regular rate and rhythm without murmurs, gallops, or rubs. RESPIRATORY: Breath sounds equal bilaterally. No accessory muscle use. GASTROINTESTINAL: Abdomen soft, non-tender, nondistended. MUSCULOSKELETAL: No cyanosis, or edema. BACK: Nontender without obvious deformity. No CVA tenderness. Laboratory Laboratory Tests Test 08/03/16 03:38 Prothrombin Time 15.2 SEC Prothromb Time International 1.4 RATIO Ratio Activated Partial 73.8 SEC Thromboplast Time Assessment and Plan Problem List: (1) Hyperlipidemia (2) Hypertension (3) NSTEMI (non-ST elevated myocardial infarction) (4) H/O ischemic left MCA stroke (5) CAD (coronary artery disease) Assessment and Plan 1.) NSTEMI - indeterminate culprit lesion, s/p bms mid lad and 95% prox rpda, stage rpda basil, continue dapt, hep bridge, continue coumadin, d/w Dr Saba; recurrent cp and trop elevation ? due to spasm and or bifucation disease @ diag with lad and/or rpds with rpla; these would be difficulat to stent due to @ 30 degree angulation of branch vessels; i think it is reasonable to try him on nitrates for spasm and continue omt for branch vessel disease, dapt, pravastatin , lisinopril, coreg; i rec'd cath and the patient refuses Greg Stafford MD August 03, 2016 13:30
--- NOTE | 2016-08-03 15:45 | HHI.PR ---
Subjective Remarks no complains, no chest pains or shortness of breath no headaches (nitrates started) Objective Vitals Vital Signs Date Time Temp Pulse Resp B/P Pulse Ox O2 Delivery O2 Flow Rate FiO2 08/03/16 15:01 98.6 88 16 105/65 97 08/03/16 14:01 82 08/03/16 13:00 106 08/03/16 12:01 81 08/03/16 11:01 97.9 89 16 114/74 100 08/03/16 11:00 83 08/03/16 10:01 104 08/03/16 09:00 112 08/03/16 08:01 97.9 87 16 129/70 100 08/03/16 08:00 94 08/03/16 07:01 83 08/03/16 06:00 74 08/03/16 05:00 62 08/03/16 04:00 62 08/03/16 03:00 66 08/03/16 03:00 98.3 68 18 113/70 100 08/03/16 02:00 62 08/03/16 01:03 70 08/03/16 00:00 66 08/02/16 23:00 98.7 76 18 119/70 100 08/02/16 23:00 83 08/02/16 22:00 75 08/02/16 21:00 73 08/02/16 20:00 74 08/02/16 19:00 98.8 78 18 102/65 99 08/02/16 19:00 78 08/02/16 18:00 82 08/02/16 17:00 84 08/02/16 16:00 81 I/O 08/02/16 08/02/16 08/02/16 08/03/16 08/03/16 08/03/16 07:00 15:00 23:00 07:00 15:00 23:00 Intake Total 315 ml 650 ml 240 ml Output Total 550 ml 550 ml Balance -235 ml 650 ml -310 ml Intake Oral 240 ml 600 ml 240 ml IV Total 75 ml 50 ml Output Urine Total 550 ml 550 ml # Voids 4 # Bowel Movements 0 Result Diagram: 08/01/16 0315 07/30/16 0332 Imaging Last Impressions Chest X-Ray 07/25/162204 Signed Impressions: Service Date/Time: Monday, July 25, 2016 22:22 - CONCLUSION: 1. Mild bibasilar streakiness consistent with atelectasis, mild infiltrates and/or congestion. Clinical correlation is recommended. 2. Mild cardiomegaly. Uriel Plasencia MD Objective Remarks awake, and alert, NAD, mild dysarthria anicteric no nuchal rigidity, no bruit lungs clear regular rhythm abdomen soft, nontender very mild right RUE weakness no calf swelling or tenderness gait steady Procedures 07/28- cardiac catheterization 07/29- cardiac cath with PCI bare metal stent of right PDA A/P Problem List: (1) NSTEMI (non-ST elevated myocardial infarction) ICD Code: I21.4 Status: Acute (2) Hypertension ICD Code: I10 Status: Chronic (3) Hyperlipidemia ICD Code: E78.5 Status: Chronic Assessment and Plan 41-year-old male with history of HTN, HLD, CVA 5 years ago on Coumadin with residual right sided weakness and dysarthria/speech delay, presents with acute onset of chest pain prior to arrival. ACS- NSTEMI: patient presents with acute onset of chest pain with some typical and atypical components, reproduced with palpation, however relieved by aspirin/ nitro en route. +risk factors with tobacco use, HTN, HLP, prior CVA. S/P PCI right PDA with bare metal stent- 07/29 , cardiac cath- 07/27- Normal LV function 65% Hypertension-improved -on Plavix, ASA, Coreg, YUMIKO, Pravachol,coumadin. ff INR- on 5 mg daily. FF INR. extra 2.5 mg tonday - Lisinopril to 30 mg daily. HCTZ 12.5 mg po daily. Nitrates -Echocardiogram with normal ejection fraction. -Dr. Stafford ff Hyperlipidemia: -continue patient's statin Chronic CVA with Residual Right Sided Deficit and Dysarthria: chronic -monitor neuro checks -continue aspirin/Plavix Tobacco Use: chronic- counselled extensively- "no more" -counseled on cessation -avoid nicotine patch secondary to vasoconstriction with NSTEMI as above DVT Prophylaxis: on Heparin drip Discharge Planning home when cleared by cardiology.with therapeutic INR DC ff up with PCP Cristian Whittington MD August 03, 2016 15:45
[2016-08-03] MEDS ORDERED: WARFARIN SOD 2.5 MG TAB PO ONE (16:00)
[2016-08-03] MEDS: WARFARIN SOD 5 MG TAB PO SCH (16:16)
[2016-08-03] MEDS: PRAVASTATIN SOD 20 MG TAB PO SCH (21:30)
[2016-08-04] VITALS (30 sets, daily range): BP systolic 93–161; BP diastolic 58–92; PULSE 62–100; RESP 16; TEMP 98.2–98.6; O2SAT 99–100
[2016-08-04] MEDS: HEPARIN 25,000 UNITS-D5W 250 ML - PREMIX IV SCH (00:57)
[2016-08-04 06:23] LABS: HEMATOCRIT 44.2 % (39.0-51.0); MEAN CELL VOLUME 92.9 FL (80.0-100.0); MEAN CORPUSCULAR HEMOGLOBIN 31.8 PG (27.0-34.0); MEAN CORPUSCULAR HGB CONC 34.2 % (32.0-36.0); PLATELET COUNT 282 TH/MM3 (150-450); RED BLOOD COUNT 4.76 MIL/MM3 (4.50-5.90); RED CELL DISTRIBUTION WIDTH 15.5 % (11.6-17.2); REVIEW FLAG FINAL; WHITE BLOOD COUNT 9.4 TH/MM3 (4.0-11.0)
[2016-08-04 06:38] LABS: APTT (PATIENT) 69.3 SEC (24.3-30.1)
[2016-08-04 06:46] LABS: MAGNESIUM 2.5 MG/DL (1.5-2.5)
[2016-08-04 06:47] LABS: BICARBONATE 28.5 MEQ/L (21.0-32.0); POTASSIUM 3.9 MEQ/L (3.5-5.1)
[2016-08-04] MEDS: ISOSORBIDE MONONITRATE 30 MG TAB PO SCH (07:04)
[2016-08-04] MEDS: ASPIRIN 81 MG CHEW TAB PO SCH (08:07)
[2016-08-04] MEDS: CLOPIDOGREL 75 MG TAB PO SCH (08:07)
[2016-08-04] MEDS: LISINOPRIL 10 MG TAB PO SCH (08:07)
[2016-08-04] MEDS: HYDROCHLOROTHIAZIDE 12.5 MG CAP PO SCH (08:07)
[2016-08-04] MEDS: CARVEDILOL 6.25 MG TAB PO SCH ×2 (08:07→20:38)
[2016-08-04] MEDS: SODIUM CHLORIDE 0.9% FLUSH 10 ML FLUSH SCH ×4 (08:08→20:39)
[2016-08-04 12:46] LABS: APTT (PATIENT) 67.6 SEC (24.3-30.1)
[2016-08-04 12:47] LABS: INTERNATIONAL NORMALIZED RATIO 1.4 RATIO; PROTHROMBIN TIME - PATIENT 15.5 SEC (9.8-11.6)
--- NOTE | 2016-08-04 13:03 | HHI.PR ---
Subjective Remarks no complains, very pleasant Objective Vitals Vital Signs Date Time Temp Pulse Resp B/P Pulse Ox O2 Delivery O2 Flow Rate FiO2 08/04/16 11:01 98.5 93 16 104/66 100 08/04/16 10:01 100 08/04/16 09:00 96 08/04/16 08:01 98.4 84 16 140/83 100 08/04/16 08:01 84 08/04/16 07:01 89 08/04/16 05:39 98.4 77 16 161/92 100 08/04/16 05:31 62 08/04/16 05:00 67 08/04/16 04:00 62 08/04/16 03:00 62 08/04/16 02:00 62 08/04/16 01:00 70 08/04/16 00:50 98.2 72 16 136/82 99 08/04/16 00:00 68 08/03/16 23:00 69 08/03/16 22:00 72 08/03/16 21:00 70 08/03/16 20:00 98 08/03/16 20:00 98.6 99 16 130/78 97 08/03/16 19:00 92 08/03/16 18:01 84 08/03/16 17:01 85 08/03/16 16:00 73 08/03/16 15:01 81 08/03/16 15:01 98.6 88 16 105/65 97 08/03/16 14:01 82 I/O 08/03/16 08/03/16 08/03/16 08/04/16 08/04/16 08/04/16 07:00 15:00 23:00 07:00 15:00 23:00 Intake Total 240 ml 662 ml 480 ml Output Total 550 ml 900 ml 175 ml Balance -310 ml -238 ml 305 ml Intake Oral 240 ml 390 ml 480 ml IV Total 272 ml 0 ml Output Urine Total 550 ml 900 ml 175 ml # Voids 5 6 # Bowel Movements 0 0 Result Diagram: 08/04/16 0548 08/04/16 0548 Imaging Last Impressions Chest X-Ray 07/25/16 8965 Signed Impressions: Service Date/Time: Monday, July 25, 2016 22:22 - CONCLUSION: 1. Mild bibasilar streakiness consistent with atelectasis, mild infiltrates and/or congestion. Clinical correlation is recommended. 2. Mild cardiomegaly. Uriel Plasencia MD Objective Remarks awake, and alert, NAD, mild dysarthria anicteric no nuchal rigidity, no bruit lungs clear regular rhythm abdomen soft, nontender very mild right RUE weakness no calf swelling or tenderness gait steady Procedures 07/28- cardiac catheterization 07/29- cardiac cath with PCI bare metal stent of right PDA A/P Problem List: (1) NSTEMI (non-ST elevated myocardial infarction) ICD Code: I21.4 Status: Acute (2) Hypertension ICD Code: I10 Status: Chronic (3) Hyperlipidemia ICD Code: E78.5 Status: Chronic Assessment and Plan 41-year-old male with history of HTN, HLD, CVA 5 years ago on Coumadin with residual right sided weakness and dysarthria/speech delay, presents with acute onset of chest pain prior to arrival. ACS- NSTEMI: patient presents with acute onset of chest pain with some typical and atypical components, reproduced with palpation, however relieved by aspirin/ nitro en route. +risk factors with tobacco use, HTN, HLP, prior CVA. S/P PCI right PDA with bare metal stent- 07/29 , cardiac cath- 07/27- Normal LV function 65% Hypertension-improved -on Plavix, ASA, Coreg, YUMIKO, Pravachol,coumadin. ff INR- on 5 mg daily. FF INR. extra 5 mg today - Lisinopril to 30 mg daily. HCTZ 12.5 mg po daily. Nitrates -Echocardiogram with normal ejection fraction. -Dr. Stafford ff Hyperlipidemia: -continue patient's statin Chronic CVA with Residual Right Sided Deficit and Dysarthria: chronic -monitor neuro checks -continue aspirin/Plavix Tobacco Use: chronic- counselled extensively- "no more" -counseled on cessation -avoid nicotine patch secondary to vasoconstriction with NSTEMI as above DVT Prophylaxis: on Heparin drip Discharge Planning home when cleared by cardiology.with therapeutic INR DC ff up with PCP Cristian Whittington MD August 04, 2016 13:03
--- NOTE | 2016-08-04 13:45 | PD.CARD.PN ---
Subjective Subjective Remarks denies chest pain Objective Vital Signs / I&O Vital Signs Date Time Temp Pulse Resp B/P Pulse Ox O2 Delivery O2 Flow Rate FiO2 08/04/16 13:01 86 08/04/16 12:00 80 08/04/16 11:01 98.5 93 16 104/66 100 08/04/16 11:00 79 08/04/16 10:01 100 08/04/16 09:00 96 08/04/16 08:01 98.4 84 16 140/83 100 08/04/16 08:01 84 08/04/16 07:01 89 08/04/16 05:39 98.4 77 16 161/92 100 08/04/16 05:31 62 08/04/16 05:00 67 08/04/16 04:00 62 08/04/16 03:00 62 08/04/16 02:00 62 08/04/16 01:00 70 08/04/16 00:50 98.2 72 16 136/82 99 08/04/16 00:00 68 08/03/16 23:00 69 08/03/16 22:00 72 08/03/16 21:00 70 08/03/16 20:00 98 08/03/16 20:00 98.6 99 16 130/78 97 08/03/16 19:00 92 08/03/16 18:01 84 08/03/16 17:01 85 08/03/16 16:00 73 08/03/16 15:01 81 08/03/16 15:01 98.6 88 16 105/65 97 08/03/16 14:01 82 I/O 08/03/16 08/03/16 08/03/16 08/04/16 08/04/16 08/04/16 07:00 15:00 23:00 07:00 15:00 23:00 Intake Total 240 ml 662 ml 480 ml Output Total 550 ml 900 ml 175 ml Balance -310 ml -238 ml 305 ml Intake Oral 240 ml 390 ml 480 ml IV Total 272 ml 0 ml Output Urine Total 550 ml 900 ml 175 ml # Voids 5 6 # Bowel Movements 0 0 Physical Exam GENERAL: SKIN: Warm and dry. HEAD: Normocephalic. EYES: No scleral icterus. No injection or drainage. NECK: Supple, trachea midline. No JVD or lymphadenopathy. CARDIOVASCULAR: Regular rate and rhythm without murmurs, gallops, or rubs. RESPIRATORY: Breath sounds equal bilaterally. No accessory muscle use. GASTROINTESTINAL: Abdomen soft, non-tender, nondistended. MUSCULOSKELETAL: No cyanosis, or edema. BACK: Nontender without obvious deformity. No CVA tenderness. Laboratory Laboratory Tests Test 08/04/16 08/04/16 05:48 12:03 White Blood Count 9.4 TH/MM3 Red Blood Count 4.76 MIL/MM3 Hemoglobin 15.1 GM/DL Hematocrit 44.2 % Mean Corpuscular Volume 92.9 FL Mean Corpuscular Hemoglobin 31.8 PG Mean Corpuscular Hemoglobin 34.2 % Concent Red Cell Distribution Width 15.5 % Platelet Count 282 TH/MM3 Mean Platelet Volume 8.0 FL Activated Partial 69.3 SEC 67.6 SEC Thromboplast Time Sodium Level 138 MEQ/L Potassium Level 3.9 MEQ/L Chloride Level 102 MEQ/L Carbon Dioxide Level 28.5 MEQ/L Anion Gap 8 MEQ/L Blood Urea Nitrogen 15 MG/DL Creatinine 1.03 MG/DL Estimat Glomerular Filtration 96 ML/MIN Rate Random Glucose 78 MG/DL Calcium Level 8.9 MG/DL Magnesium Level 2.5 MG/DL Prothrombin Time 15.5 SEC Prothromb Time International 1.4 RATIO Ratio Assessment and Plan Problem List: (1) Hyperlipidemia (2) Hypertension (3) NSTEMI (non-ST elevated myocardial infarction) (4) H/O ischemic left MCA stroke (5) CAD (coronary artery disease) Assessment and Plan 1.) NSTEMI - indeterminate culprit lesion, s/p bms mid lad and 95% prox rpda, stage rpda basil, continue dapt, hep bridge, continue coumadin, d/w Dr Saba; recurrent cp and trop elevation ? due to spasm and or bifucation disease @ diag with lad and/or rpds with rpla; these would be difficulat to stent due to @ 30 degree angulation of branch vessels; i think it is reasonable to try him on nitrates for spasm and continue omt for branch vessel disease, dapt, pravastatin , lisinopril, coreg; i rec'd cath and the patient refuses Greg Stafford MD August 04, 2016 13:45
[2016-08-04] MEDS ORDERED: WARFARIN SOD 5 MG TAB PO ONE (16:00)
[2016-08-04] MEDS: WARFARIN SOD 5 MG TAB PO SCH (16:45)
[2016-08-04] MEDS: PRAVASTATIN SOD 20 MG TAB PO SCH (20:38)
[2016-08-05] VITALS (22 sets, daily range): BP systolic 112–138; BP diastolic 73–84; PULSE 67–112; RESP 16–18; TEMP 97–98.7; O2SAT 98–100
[2016-08-05] MEDS: HEPARIN 25,000 UNITS-D5W 250 ML - PREMIX IV SCH (03:03)
[2016-08-05 06:25] LABS: APTT (PATIENT) 82.9 SEC (24.3-30.1)
[2016-08-05] MEDS: ISOSORBIDE MONONITRATE 30 MG TAB PO SCH (07:01)
--- NOTE | 2016-08-05 10:06 | HHI.PR ---
Subjective Remarks no complains doing grreat Objective Vitals Vital Signs Date Time Temp Pulse Resp B/P Pulse Ox O2 Delivery O2 Flow Rate FiO2 08/05/16 09:00 72 08/05/16 08:00 76 08/05/16 07:00 98.6 100 16 137/84 100 08/05/16 07:00 67 08/05/16 06:00 68 08/05/16 05:00 70 08/05/16 04:29 98.7 76 16 112/77 100 08/05/16 04:00 68 08/05/16 03:00 75 08/05/16 02:00 68 08/05/16 01:00 72 08/05/16 00:00 68 08/04/16 23:33 98.6 79 16 130/80 100 08/04/16 23:00 66 08/04/16 22:00 68 08/04/16 21:00 68 08/04/16 20:36 98.6 72 16 113/74 100 08/04/16 20:00 68 08/04/16 19:00 80 08/04/16 18:01 86 08/04/16 17:01 76 08/04/16 16:00 80 08/04/16 15:01 98.4 92 16 93/58 99 08/04/16 15:00 88 08/04/16 14:00 80 08/04/16 13:01 86 08/04/16 12:00 80 08/04/16 11:01 98.5 93 16 104/66 100 08/04/16 11:00 79 I/O 08/04/16 08/04/16 08/04/16 08/05/16 08/05/16 08/05/16 07:00 15:00 23:00 07:00 15:00 23:00 Intake Total 480 ml 560 ml 480 ml Output Total 175 ml 750 ml 400 ml Balance 305 ml -190 ml 80 ml Intake Oral 480 ml 480 ml 480 ml IV Total 0 ml 80 ml Output Urine Total 175 ml 750 ml 400 ml # Voids 6 5 1 # Bowel Movements 0 0 Result Diagram: 08/04/16 0548 08/04/16 0548 Imaging Last Impressions Chest X-Ray 07/25/16 0698 Signed Impressions: Service Date/Time: Monday, July 25, 2016 22:22 - CONCLUSION: 1. Mild bibasilar streakiness consistent with atelectasis, mild infiltrates and/or congestion. Clinical correlation is recommended. 2. Mild cardiomegaly. Uriel Plasencia MD Objective Remarks awake, and alert, NAD, mild dysarthria anicteric no nuchal rigidity, no bruit lungs clear regular rhythm abdomen soft, nontender very mild right RUE weakness no calf swelling or tenderness gait steady Procedures 07/28- cardiac catheterization 07/29- cardiac cath with PCI bare metal stent of right PDA A/P Problem List: (1) NSTEMI (non-ST elevated myocardial infarction) ICD Code: I21.4 Status: Acute (2) Hypertension ICD Code: I10 Status: Chronic (3) Hyperlipidemia ICD Code: E78.5 Status: Chronic Assessment and Plan 41-year-old male with history of HTN, HLD, CVA 5 years ago on Coumadin with residual right sided weakness and dysarthria/speech delay, presents with acute onset of chest pain prior to arrival. ACS- NSTEMI: patient presents with acute onset of chest pain with some typical and atypical components, reproduced with palpation, however relieved by aspirin/ nitro en route. +risk factors with tobacco use, HTN, HLP, prior CVA. S/P PCI right PDA with bare metal stent- 07/29 , cardiac cath- 07/27- Normal LV function 65% Hypertension-improved -on Plavix, ASA, Coreg, YUMIOK, Pravachol,coumadin. ff INR- on 5 mg daily. FF INR. - Lisinopril to 30 mg daily. HCTZ 12.5 mg po daily. Nitrates -Echocardiogram with normal ejection fraction. -Dr. Stafford ff Hyperlipidemia: -continue patient's statin Chronic CVA with Residual Right Sided Deficit and Dysarthria: chronic -monitor neuro checks -continue aspirin/Plavix Tobacco Use: chronic- counselled extensively- "no more" -counseled on cessation -avoid nicotine patch secondary to vasoconstriction with NSTEMI as above DVT Prophylaxis: on Heparin drip Discharge Planning home when cleared by cardiology.with therapeutic INR DC ff up with PCP Cristian Whittington MD August 05, 2016 10:05
[2016-08-05] MEDS: CLOPIDOGREL 75 MG TAB PO SCH (10:07)
[2016-08-05] MEDS: CARVEDILOL 6.25 MG TAB PO SCH ×2 (10:08→22:00)
[2016-08-05] MEDS: HYDROCHLOROTHIAZIDE 12.5 MG CAP PO SCH (10:08)
[2016-08-05] MEDS: ASPIRIN 81 MG CHEW TAB PO SCH (10:08)
[2016-08-05] MEDS: LISINOPRIL 10 MG TAB PO SCH (10:08)
[2016-08-05] MEDS: SODIUM CHLORIDE 0.9% FLUSH 10 ML FLUSH SCH ×4 (10:09→21:00)
[2016-08-05 11:01] LABS: INTERNATIONAL NORMALIZED RATIO 1.5 RATIO; PROTHROMBIN TIME - PATIENT 17.2 SEC (9.8-11.6)
[2016-08-05 11:02] LABS: APTT (PATIENT) 56.6 SEC (24.3-30.1)
--- NOTE | 2016-08-05 13:06 | PD.CARD.PN ---
Subjective Subjective Remarks alert in nad Objective Vital Signs / I&O Vital Signs Date Time Temp Pulse Resp B/P Pulse Ox O2 Delivery O2 Flow Rate FiO2 08/05/16 11:01 82 08/05/16 11:01 98.6 100 16 138/84 100 08/05/16 10:00 76 08/05/16 09:00 72 08/05/16 08:00 76 08/05/16 07:00 98.6 100 16 137/84 100 08/05/16 07:00 67 08/05/16 06:00 68 08/05/16 05:00 70 08/05/16 04:29 98.7 76 16 112/77 100 08/05/16 04:00 68 08/05/16 03:00 75 08/05/16 02:00 68 08/05/16 01:00 72 08/05/16 00:00 68 08/04/16 23:33 98.6 79 16 130/80 100 08/04/16 23:00 66 08/04/16 22:00 68 08/04/16 21:00 68 08/04/16 20:36 98.6 72 16 113/74 100 08/04/16 20:00 68 08/04/16 19:00 80 08/04/16 18:01 86 08/04/16 17:01 76 08/04/16 16:00 80 08/04/16 15:01 98.4 92 16 93/58 99 08/04/16 15:00 88 08/04/16 14:00 80 I/O 08/04/16 08/04/16 08/04/16 08/05/16 08/05/16 08/05/16 07:00 15:00 23:00 07:00 15:00 23:00 Intake Total 480 ml 560 ml 480 ml Output Total 175 ml 750 ml 400 ml Balance 305 ml -190 ml 80 ml Intake Oral 480 ml 480 ml 480 ml IV Total 0 ml 80 ml Output Urine Total 175 ml 750 ml 400 ml # Voids 6 5 1 # Bowel Movements 0 0 Physical Exam GENERAL: SKIN: Warm and dry. HEAD: Normocephalic. EYES: No scleral icterus. No injection or drainage. NECK: Supple, trachea midline. No JVD or lymphadenopathy. CARDIOVASCULAR: Regular rate and rhythm without murmurs, gallops, or rubs. RESPIRATORY: Breath sounds equal bilaterally. No accessory muscle use. GASTROINTESTINAL: Abdomen soft, non-tender, nondistended. MUSCULOSKELETAL: No cyanosis, or edema. BACK: Nontender without obvious deformity. No CVA tenderness. Laboratory Laboratory Tests Test 08/05/16 08/05/16 05:19 09:58 Activated Partial 82.9 SEC 56.6 SEC Thromboplast Time Prothrombin Time 17.2 SEC Prothromb Time International 1.5 RATIO Ratio Assessment and Plan Problem List: (1) Hyperlipidemia (2) Hypertension (3) NSTEMI (non-ST elevated myocardial infarction) (4) H/O ischemic left MCA stroke (5) CAD (coronary artery disease) Assessment and Plan 1.) NSTEMI - indeterminate culprit lesion, s/p bms mid lad and 95% prox rpda, stage rpda basil, continue dapt, hep bridge, continue coumadin, d/w Dr Saba; recurrent cp and trop elevation ? due to spasm and or bifucation disease @ diag with lad and/or rpds with rpla; these would be difficulat to stent due to @ 30 degree angulation of branch vessels; i think it is reasonable to try him on nitrates for spasm and continue omt for branch vessel disease, dapt, pravastatin , lisinopril, coreg; i rec'd cath and the patient refuses Greg Stafford MD August 05, 2016 13:06
[2016-08-05] MEDS ORDERED: WARFARIN SOD 4 MG TAB PO ONE (17:30)
[2016-08-05] MEDS: WARFARIN SOD 5 MG TAB PO SCH (17:47)
[2016-08-05 20:05] LABS: APTT (PATIENT) 56.5 SEC (24.3-30.1); INTERNATIONAL NORMALIZED RATIO 1.6 RATIO
[2016-08-05] MEDS: PRAVASTATIN SOD 20 MG TAB PO SCH (22:00)
[2016-08-06] VITALS (22 sets, daily range): BP systolic 109–135; BP diastolic 71–83; PULSE 78–119; RESP 14–18; TEMP 98–99.1; O2SAT 98–100
[2016-08-06] MEDS: ISOSORBIDE MONONITRATE 30 MG TAB PO SCH (06:17)
[2016-08-06 06:18] LABS: INTERNATIONAL NORMALIZED RATIO 1.7 RATIO; PROTHROMBIN TIME - PATIENT 19.4 SEC (9.8-11.6)
[2016-08-06] MEDS: HYDROCHLOROTHIAZIDE 12.5 MG CAP PO SCH (08:40)
[2016-08-06] MEDS: CLOPIDOGREL 75 MG TAB PO SCH (08:40)
[2016-08-06] MEDS: ASPIRIN 81 MG CHEW TAB PO SCH (08:40)
[2016-08-06] MEDS: CARVEDILOL 6.25 MG TAB PO SCH ×2 (08:40→21:49)
[2016-08-06] MEDS: SODIUM CHLORIDE 0.9% FLUSH 10 ML FLUSH SCH ×4 (08:54→21:50)
[2016-08-06] MEDS: LISINOPRIL 10 MG TAB PO SCH (08:54)
[2016-08-06 10:16] LABS: APTT (PATIENT) 58.3 SEC (24.3-30.1)
[2016-08-06 10:18] LABS: INTERNATIONAL NORMALIZED RATIO 1.8 RATIO
--- NOTE | 2016-08-06 11:35 | HHI.PR ---
Subjective Remarks doing great, no complains BP 110/74 HR- 88- sinus Objective Vitals Vital Signs Date Time Temp Pulse Resp B/P Pulse Ox O2 Delivery O2 Flow Rate FiO2 08/06/16 11:17 99.0 83 16 110/75 98 08/06/16 10:00 114 08/06/16 09:00 110 08/06/16 08:41 99.0 110 16 135/83 100 08/06/16 08:00 119 08/06/16 04:00 78 08/06/16 04:00 98.0 78 18 117/76 98 08/06/16 02:00 80 08/06/16 00:00 83 08/05/16 23:59 97.0 80 18 120/76 100 08/05/16 20:00 98.6 83 18 134/73 98 08/05/16 20:00 83 08/05/16 18:00 77 08/05/16 17:32 82 08/05/16 16:00 87 08/05/16 15:00 97.0 88 18 128/80 99 08/05/16 15:00 88 08/05/16 14:00 112 08/05/16 13:00 88 08/05/16 12:00 80 I/O 08/05/16 08/05/16 08/05/16 08/06/16 08/06/16 08/06/16 07:00 15:00 23:00 07:00 15:00 23:00 Intake Total 480 ml 872 ml 329 ml 200 ml Output Total 400 ml 800 ml 300 ml Balance 80 ml 72 ml 29 ml 200 ml Intake Oral 480 ml 680 ml 240 ml 200 ml IV Total 192 ml 89 ml Output Urine Total 400 ml 800 ml 300 ml # Voids 1 5 # Bowel Movements 0 1 Result Diagram: 08/04/16 0548 08/04/16 0548 Imaging Last Impressions Chest X-Ray 07/25/162204 Signed Impressions: Service Date/Time: Monday, July 25, 2016 22:22 - CONCLUSION: 1. Mild bibasilar streakiness consistent with atelectasis, mild infiltrates and/or congestion. Clinical correlation is recommended. 2. Mild cardiomegaly. Uriel Plasencia MD Objective Remarks awake, and alert, NAD, mild dysarthria anicteric no nuchal rigidity, no bruit lungs clear regular rhythm abdomen soft, nontender very mild right RUE weakness no calf swelling or tenderness gait steady Procedures 07/28- cardiac catheterization 07/29- cardiac cath with PCI bare metal stent of right PDA A/P Problem List: (1) NSTEMI (non-ST elevated myocardial infarction) ICD Code: I21.4 Status: Acute (2) Hypertension ICD Code: I10 Status: Chronic (3) Hyperlipidemia ICD Code: E78.5 Status: Chronic Assessment and Plan 41-year-old male with history of HTN, HLD, CVA 5 years ago on Coumadin with residual right sided weakness and dysarthria/speech delay, presents with acute onset of chest pain prior to arrival. patient presents with acute onset of chest pain with some typical and atypical components, reproduced with palpation, however relieved by aspirin/nitro en route. +risk factors with tobacco use, HTN, HLP, prior CVA. ACS- NSTEMI: S/P PCI right PDA with bare metal stent- 07/29 , cardiac cath- 07/27 - Normal LV function 65% Hypertension-improved -on Plavix, ASA, Coreg, YUMIKO, Pravachol,coumadin. ff INR- on 5 mg daily- give extra 5 mg tonite - Lisinopril to 30 mg daily. HCTZ 12.5 mg po daily. Nitrates -Echocardiogram with normal ejection fraction. -Dr. Stafford ff - OP ff up on Heparin drip. till INR therapeutic Hyperlipidemia: -continue patient's statin Chronic CVA with Residual Right Sided Deficit and Dysarthria: chronic -monitor neuro checks -continue aspirin/Plavix Tobacco Use: chronic- counselled extensively- "no more" -counseled on cessation -avoid nicotine patch secondary to vasoconstriction with NSTEMI as above DVT Prophylaxis: on Heparin drip Discharge Planning home when cleared by cardiology.with therapeutic INR DC ff up with PCP Cristian Whittington MD August 06, 2016 11:35
[2016-08-06] MEDS: HEPARIN 25,000 UNITS-D5W 250 ML - PREMIX IV SCH (13:23)
--- NOTE | 2016-08-06 14:51 | PD.CARD.PN ---
Subjective Subjective Remarks alert in nad Objective Vital Signs / I&O Vital Signs Date Time Temp Pulse Resp B/P Pulse Ox O2 Delivery O2 Flow Rate FiO2 08/06/16 14:00 80 08/06/16 13:00 84 08/06/16 12:00 80 08/06/16 12:00 80 08/06/16 12:00 99.0 89 18 110/75 100 08/06/16 11:17 99.0 83 16 110/75 98 08/06/16 11:00 84 08/06/16 10:57 80 08/06/16 10:00 114 08/06/16 09:00 110 08/06/16 08:41 99.0 110 16 135/83 100 08/06/16 08:00 119 08/06/16 04:00 78 08/06/16 04:00 98.0 78 18 117/76 98 08/06/16 02:00 80 08/06/16 00:00 83 08/05/16 23:59 97.0 80 18 120/76 100 08/05/16 20:00 98.6 83 18 134/73 98 08/05/16 20:00 83 08/05/16 18:00 77 08/05/16 17:32 82 08/05/16 16:00 87 08/05/16 15:00 97.0 88 18 128/80 99 08/05/16 15:00 88 I/O 08/05/16 08/05/16 08/05/16 08/06/16 08/06/16 08/06/16 07:00 15:00 23:00 07:00 15:00 23:00 Intake Total 480 ml 872 ml 329 ml 500 ml Output Total 400 ml 800 ml 300 ml Balance 80 ml 72 ml 29 ml 500 ml Intake Oral 480 ml 680 ml 240 ml 500 ml IV Total 192 ml 89 ml Output Urine Total 400 ml 800 ml 300 ml # Voids 1 5 5 # Bowel Movements 0 1 Physical Exam GENERAL: SKIN: Warm and dry. HEAD: Normocephalic. EYES: No scleral icterus. No injection or drainage. NECK: Supple, trachea midline. No JVD or lymphadenopathy. CARDIOVASCULAR: Regular rate and rhythm without murmurs, gallops, or rubs. RESPIRATORY: Breath sounds equal bilaterally. No accessory muscle use. GASTROINTESTINAL: Abdomen soft, non-tender, nondistended. MUSCULOSKELETAL: No cyanosis, or edema. BACK: Nontender without obvious deformity. No CVA tenderness. Laboratory Laboratory Tests Test 08/05/16 08/06/16 08/06/16 19:40 05:20 09:06 Prothrombin Time 18.0 SEC 19.4 SEC 21.0 SEC Prothromb Time International 1.6 RATIO 1.7 RATIO 1.8 RATIO Ratio Activated Partial 56.5 SEC 58.3 SEC Thromboplast Time Assessment and Plan Problem List: (1) Hyperlipidemia (2) Hypertension (3) NSTEMI (non-ST elevated myocardial infarction) (4) H/O ischemic left MCA stroke (5) CAD (coronary artery disease) Assessment and Plan 1.) NSTEMI - indeterminate culprit lesion, s/p bms mid lad and 95% prox rpda, stage rpda basil, continue dapt, hep bridge, continue coumadin, d/w Dr Saba; recurrent cp and trop elevation ? due to spasm and or bifucation disease @ diag with lad and/or rpds with rpla; these would be difficulat to stent due to @ 30 degree angulation of branch vessels; i think it is reasonable to try him on nitrates for spasm and continue omt for branch vessel disease, dapt, pravastatin , lisinopril, coreg; i rec'd cath and the patient refuses Greg Stafford MD August 06, 2016 14:51
[2016-08-06] MEDS: WARFARIN SOD 5 MG TAB PO SCH (15:28)
[2016-08-06] MEDS ORDERED: WARFARIN SOD 5 MG TAB PO ONE (16:00)
[2016-08-06] MEDS: PRAVASTATIN SOD 20 MG TAB PO SCH (21:49)
[2016-08-07] VITALS (23 sets, daily range): BP systolic 100–129; BP diastolic 55–83; PULSE 65–121; RESP 14–20; TEMP 98.1–99.2; O2SAT 99–100
[2016-08-07] MEDS: NITROGLYCERIN 0.4 MG SL 25 TABS/BTL SL PRN ×6 (03:24→05:11)
[2016-08-07] MEDS: ACETAMINOPHEN 325 MG TAB PO PRN (03:42)
[2016-08-07 06:34] LABS: HEMATOCRIT 44.6 % (39.0-51.0); MEAN CELL VOLUME 92.8 FL (80.0-100.0); MEAN CORPUSCULAR HEMOGLOBIN 30.9 PG (27.0-34.0); MEAN CORPUSCULAR HGB CONC 33.3 % (32.0-36.0); PLATELET COUNT 259 TH/MM3 (150-450); RED BLOOD COUNT 4.81 MIL/MM3 (4.50-5.90); RED CELL DISTRIBUTION WIDTH 15.1 % (11.6-17.2); REVIEW FLAG FINAL; WHITE BLOOD COUNT 9.8 TH/MM3 (4.0-11.0)
[2016-08-07] MEDS: ISOSORBIDE MONONITRATE 30 MG TAB PO SCH (06:40)
[2016-08-07 06:56] LABS: APTT (PATIENT) 68.5 SEC (24.3-30.1); INTERNATIONAL NORMALIZED RATIO 2.1 RATIO; PROTHROMBIN TIME - PATIENT 23.4 SEC (9.8-11.6)
[2016-08-07] MEDS: CLOPIDOGREL 75 MG TAB PO SCH (08:40)
[2016-08-07] MEDS: HYDROCHLOROTHIAZIDE 12.5 MG CAP PO SCH (08:41)
[2016-08-07] MEDS: CARVEDILOL 6.25 MG TAB PO SCH ×2 (08:41→20:07)
[2016-08-07] MEDS: LISINOPRIL 10 MG TAB PO SCH (08:41)
[2016-08-07] MEDS: ASPIRIN 81 MG CHEW TAB PO SCH (08:41)
[2016-08-07] MEDS: SODIUM CHLORIDE 0.9% FLUSH 10 ML FLUSH SCH ×3 (08:42→20:07)
--- NOTE | 2016-08-07 09:19 | PD.CARD.PN ---
Subjective Subjective Remarks alert in nad Objective Vital Signs / I&O Vital Signs Date Time Temp Pulse Resp B/P Pulse Ox O2 Delivery O2 Flow Rate FiO2 08/07/16 08:00 98.9 121 18 108/83 100 08/07/16 08:00 78 08/07/16 07:03 16 08/07/16 06:00 88 08/07/16 05:00 86 08/07/16 04:00 98.1 65 20 129/75 100 08/07/16 04:00 76 08/07/16 03:00 75 08/07/16 02:00 70 08/07/16 01:00 88 08/07/16 00:00 98.5 85 14 108/70 100 08/07/16 00:00 70 08/06/16 23:00 81 08/06/16 22:00 80 08/06/16 21:00 80 08/06/16 20:00 98.4 94 14 116/72 99 08/06/16 20:00 96 08/06/16 19:00 92 08/06/16 18:00 82 08/06/16 17:00 118 08/06/16 16:00 79 08/06/16 16:00 99.1 79 16 109/71 100 08/06/16 15:00 92 08/06/16 14:00 80 08/06/16 14:00 80 08/06/16 13:00 82 08/06/16 13:00 84 08/06/16 12:00 80 08/06/16 12:00 80 08/06/16 12:00 99.0 89 18 110/75 100 08/06/16 11:17 99.0 83 16 110/75 98 08/06/16 11:00 84 08/06/16 10:57 80 08/06/16 10:00 114 I/O 08/06/16 08/06/16 08/06/16 08/07/16 08/07/16 08/07/16 06:59 14:59 22:59 06:59 14:59 22:59 Intake Total 329 ml 500 ml 317 ml Output Total 300 ml Balance 29 ml 500 ml 317 ml Intake Oral 240 ml 500 ml 240 ml IV Total 89 ml 77 ml Output Urine Total 300 ml # Voids 5 2 # Bowel Movements 1 1 Physical Exam GENERAL: SKIN: Warm and dry. HEAD: Normocephalic. EYES: No scleral icterus. No injection or drainage. NECK: Supple, trachea midline. No JVD or lymphadenopathy. CARDIOVASCULAR: Regular rate and rhythm without murmurs, gallops, or rubs. RESPIRATORY: Breath sounds equal bilaterally. No accessory muscle use. GASTROINTESTINAL: Abdomen soft, non-tender, nondistended. MUSCULOSKELETAL: No cyanosis, or edema. BACK: Nontender without obvious deformity. No CVA tenderness. Laboratory Laboratory Tests Test 08/07/16 06:06 White Blood Count 9.8 TH/MM3 Red Blood Count 4.81 MIL/MM3 Hemoglobin 14.8 GM/DL Hematocrit 44.6 % Mean Corpuscular Volume 92.8 FL Mean Corpuscular Hemoglobin 30.9 PG Mean Corpuscular Hemoglobin 33.3 % Concent Red Cell Distribution Width 15.1 % Platelet Count 259 TH/MM3 Mean Platelet Volume 8.0 FL Prothrombin Time 23.4 SEC Prothromb Time International 2.1 RATIO Ratio Activated Partial 68.5 SEC Thromboplast Time Assessment and Plan Problem List: (1) Hyperlipidemia (2) Hypertension (3) NSTEMI (non-ST elevated myocardial infarction) (4) H/O ischemic left MCA stroke (5) CAD (coronary artery disease) Assessment and Plan 1.) NSTEMI - indeterminate culprit lesion, s/p bms mid lad and 95% prox rpda, stage rpda basil, continue dapt, hep bridge, continue coumadin, d/w Dr Saba; recurrent cp and trop elevation ? due to spasm and or bifucation disease @ diag with lad and/or rpds with rpla; these would be difficulat to stent due to @ 30 degree angulation of branch vessels; i think it is reasonable to try him on nitrates for spasm and continue omt for branch vessel disease, dapt, pravastatin , lisinopril, coreg; i rec'd cath and the patient refuses 2.) Heart block/bradycardia - consult Greg Weber MD August 07, 2016 09:19
[2016-08-07 10:14] LABS: INTERNATIONAL NORMALIZED RATIO 2.1 RATIO; PROTHROMBIN TIME - PATIENT 24.4 SEC (9.8-11.6)
[2016-08-07 10:20] LABS: APTT (PATIENT) 60.7 SEC (24.3-30.1)
--- NOTE | 2016-08-07 12:34 | HHI.PR ---
Subjective Remarks 41-year-old male with history of HTN, HLD, CVA 5 years ago on Coumadin with residual right sided weakness and dysarthria/speech delay, presents with acute onset of chest pain prior to arrival. patient presents with acute onset of chest pain with some typical and atypical components, reproduced with palpation, however relieved by aspirin/nitro en route. +risk factors with tobacco use, HTN, HLP, prior CVA. 08/07: Seen in his bedroom and discussed with nurse Miss Leung, she has questions about Heparin and Warfarin, this has to be assessed by grievance and appeals specialist because depend of the planned procedure may need to be off Warfarin and continue heparin IV. no nausea, vomit or diarrhea. Objective Vital Signs Date Time Temp Pulse Resp B/P Pulse Ox O2 Delivery O2 Flow Rate FiO2 08/07/16 11:00 92 08/07/16 10:00 82 08/07/16 09:00 120 08/07/16 08:00 98.9 121 18 108/83 100 08/07/16 08:00 78 08/07/16 07:03 16 08/07/16 07:00 74 08/07/16 06:00 88 08/07/16 05:00 86 08/07/16 04:00 98.1 65 20 129/75 100 08/07/16 04:00 76 08/07/16 03:00 75 08/07/16 02:00 70 08/07/16 01:00 88 08/07/16 00:00 98.5 85 14 108/70 100 08/07/16 00:00 70 08/06/16 23:00 81 08/06/16 22:00 80 08/06/16 21:00 80 08/06/16 20:00 98.4 94 14 116/72 99 08/06/16 20:00 96 08/06/16 19:00 92 08/06/16 18:00 82 08/06/16 17:00 118 08/06/16 16:00 79 08/06/16 16:00 99.1 79 16 109/71 100 08/06/16 15:00 92 08/06/16 14:00 80 08/06/16 14:00 80 08/06/16 13:00 82 08/06/16 13:00 84 I/O 5/25/17 508/06/16 08/07/16 08/07/16 08/07/16 07:00 15:00 23:00 07:00 15:00 23:00 Intake Total 329 ml 500 ml 317 ml Output Total 300 ml Balance 29 ml 500 ml 317 ml Intake Oral 240 ml 500 ml 240 ml IV Total 89 ml 77 ml Output Urine Total 300 ml # Voids 5 2 # Bowel Movements 1 1 Result Diagram: 08/07/16 0606 08/04/16 0548 Imaging Last Impressions Chest X-Ray 07/25/162204 Signed Impressions: Service Date/Time: Monday, July 25, 2016 22:22 - CONCLUSION: 1. Mild bibasilar streakiness consistent with atelectasis, mild infiltrates and/or congestion. Clinical correlation is recommended. 2. Mild cardiomegaly. Uriel Plasencia MD Procedures Cardiac Catheterization 07/29/16 BMS to proximal Right PDA Other Results Laboratory Tests Test 08/04/16 08/07/16 08/07/16 05:48 06:06 09:23 Sodium Level 138 MEQ/L Potassium Level 3.9 MEQ/L Chloride Level 102 MEQ/L Carbon Dioxide Level 28.5 MEQ/L Anion Gap 8 MEQ/L Blood Urea Nitrogen 15 MG/DL Creatinine 1.03 MG/DL Estimat Glomerular Filtration 96 ML/MIN Rate Random Glucose 78 MG/DL Calcium Level 8.9 MG/DL Magnesium Level 2.5 MG/DL White Blood Count 9.8 TH/MM3 Red Blood Count 4.81 MIL/MM3 Hemoglobin 14.8 GM/DL Hematocrit 44.6 % Mean Corpuscular Volume 92.8 FL Mean Corpuscular Hemoglobin 30.9 PG Mean Corpuscular Hemoglobin 33.3 % Concent Red Cell Distribution Width 15.1 % Platelet Count 259 TH/MM3 Mean Platelet Volume 8.0 FL Prothrombin Time 24.4 SEC Prothromb Time International 2.1 RATIO Ratio Activated Partial 60.7 SEC Thromboplast Time Objective Remarks GENERAL: Well Developed, no acute distress. walking in the aisle. SKIN: Warm and dry. HEAD: Atraumatic. Normocephalic. EYES: Pupils equal and round. No scleral icterus. No injection or drainage. ENT: No nasal bleeding or discharge. Mucous membranes pink and moist. NECK: Trachea midline. No JVD. CARDIOVASCULAR: Regular rate and rhythm. RESPIRATORY: No accessory muscle use. Clear to auscultation. Breath sounds equal bilaterally. GASTROINTESTINAL: Abdomen soft, non-tender, nondistended. Hepatic and splenic margins not palpable. MUSCULOSKELETAL: Extremities without clubbing, cyanosis, or edema. No obvious deformities. NEUROLOGICAL: Awake and alert. No obvious cranial nerve deficits. Motor grossly within normal limits. Five out of 5 muscle strength in the arms and legs. Normal speech. PSYCHIATRIC: Appropriate mood and affect; insight and judgment normal. Medications and IVs Current Medications Medications (Trade) Dose Ordered Sig/Adilia Route Start Time Stop Time Status Last Admin (Tylenol) 650 mg Q4H PRN PO 07/26/16 06:15 08/07/16 03:42 (Zofran Inj) 4 mg Q6H PRN IVP 07/26/16 06:15 (Narcan Inj) 0.4 mg UNSCH PRN IV 07/26/16 06:15 (Pravachol) 20 mg HS PO 07/27/16 21:00 08/06/16 21:49 (NS Flush) 2 ml UNSCH PRN .XX 07/27/16 16:00 (NS Flush) 2 ml BID .XX 07/27/16 21:00 08/06/16 21:50 (Coreg) 6.25 mg BID PO 07/28/16 09:00 08/07/16 08:41 (NS Flush) 2 ml UNSCH PRN .XX 07/29/16 13:00 (NS Flush) 2 ml BID .XX 07/29/16 21:00 08/05/16 10:10 (Aspirin Chew) 81 mg DAILY PO 07/30/16 09:00 08/07/16 08:41 (Plavix) 75 mg DAILY PO 07/30/16 09:00 08/07/16 08:40 (Catapres) 0.1 mg Q6H PRN PO 07/29/16 16:45 07/30/16 00:58 (Prinivil) 30 mg DAILY PO 07/31/16 09:00 08/07/16 08:41 (Microzide) 12.5 mg DAILY PO 07/30/16 11:15 08/07/16 08:41 Warfarin Sodium 5 mg 5 mg DAILY@1600 PO 07/30/16 16:00 08/06/16 15:28 (Heparin-D5W Inj) 250 ml @ 0 mls/hr TITRATE IV 07/30/16 13:45 08/06/16 13:23 (Imdur) 30 mg DAILY@07 PO 08/02/16 08:45 08/07/16 06:40 (Nitrostat Sl) 0.4 mg Q5M PRN SL 08/07/16 03:15 08/07/16 05:11 A/P Assessment and Plan -ACS- NSTEMI: S/P PCI right PDA with bare metal stent- 07/29 , cardiac cath- 07/27 - Normal LV function 65% On Heparin bridge to Warfarin, has recurrent Chest pain and troponin elevation , due to spasms, or Bifurcation disease, recommended Nitrates for spasms, patient refused new Cardiac Cath. -Heart block/bradycardia - consult Dr Cornejo -Hypertension-improved -on Plavix, ASA, Coreg, YUMIKO, Pravachol,Coumadin. INR 2.1 - Lisinopril to 30 mg daily. HCTZ 12.5 mg po daily. Nitrates -Echocardiogram with normal ejection fraction. On Heparin will ask to Cardiology if wants to continue Warfarin if planned procedure. -Hyperlipidemia: -continue patient's statin -Chronic CVA with Residual Right Sided Deficit and Dysarthria: chronic -monitor neuro checks -continue aspirin/Plavix -Tobacco Use: chronic- counselled extensively- "no more" -counseled on cessation -avoid nicotine patch secondary to vasoconstriction with NSTEMI as above DVT Prophylaxis: on Heparin drip Discharge Planning Once cleared by specialists Fabian Khan MD August 07, 2016 12:34
[2016-08-07] MEDS: WARFARIN SOD 5 MG TAB PO SCH (15:19)
--- NOTE | 2016-08-07 19:36 | MB ---
cc: SHILPI MARTIN M.D. DATE OF CONSULTATION: 08/07/2016. REASON FOR CONSULTATION: Electrophysiology consultation. HISTORY OF PRESENT ILLNESS: Mr. Posey is a 41-year-old -Greek gentleman with coronary artery disease, high blood pressure, chronic smoker who has a PTCA plus stent to the left anterior descending by Dr. Stafford on July 27, 2016. During hospitalization, some pauses were observed. I was consulted for evaluation and management. The chart was reviewed. The patient was evaluated. ALLERGIES: None reported. SOCIAL HISTORY: The patient used to smoke five cigarettes a day and smokes marijuana. FAMILY HISTORY: Noncontributory to his current medical condition. MEDICATIONS: Currently the patient is on: 1. Heparin IV. 2. Aspirin. 3. Coreg 6.25 milligrams twice a day. 4. Plavix 75 gentleman a day. 5. Hydrochlorothiazide 12.5 milligrams a day. 6. Imdur 30 milligrams a day. 7. Lisinopril 30 milligrams a day. 8. Pravachol 20 milligrams at bedtime. 9. Coumadin as directed. REVIEW OF SYSTEMS: Currently he refers no chest pain. No chest discomfort. No shortness of breath. No fever. PHYSICAL EXAMINATION: GENERAL: Alert, fully oriented. VITAL SIGNS: His blood pressure is 105/55, pulse around 72, respiratory rate 18. LUNGS: Ventilated. CARDIOVASCULAR: S1 and S2 regular. ABDOMEN: Abdomen soft, no mass. EXTREMITIES: No edema. EKGS: Electrocardiogram shows sinus rhythm. LABORATORY DATA: Hemoglobin is 14.8, white blood cell 9.8. Potassium 3.9, creatinine 1.03. Troponin 0.52. INR 2.1. ASSESSMENT AND RECOMMENDATIONS: Mr. Posey is currently stable. There are two strips: One was at 1:27 in the morning where the patient has around a 3 second pause. That was not significant. At this point, there is no need for pacing support. At the same time, the patient is on Coreg also. I will continue him on the medication. My recommendation is to continue with current management. The patient can be discharged home whenever it is okay with the managing team. I will be available on a p.r.n. basis. MD HUNTER Rosario/JCNolan /6:44 PM /7:30 PM
[2016-08-07] MEDS: PRAVASTATIN SOD 20 MG TAB PO SCH (20:08)
[2016-08-08] VITALS (10 sets, daily range): BP systolic 98–115; BP diastolic 42–73; PULSE 60–99; RESP 18–20; TEMP 98–99.3; O2SAT 99–100
[2016-08-08] MEDS: ISOSORBIDE MONONITRATE 30 MG TAB PO SCH (06:08)
[2016-08-08 06:20] LABS: APTT (PATIENT) 38.5 SEC (24.3-30.1); INTERNATIONAL NORMALIZED RATIO 1.9 RATIO; PROTHROMBIN TIME - PATIENT 21.3 SEC (9.8-11.6)
--- NOTE | 2016-08-08 08:07 | HHI.PR ---
Subjective Remarks 41-year-old male with history of HTN, HLD, CVA 5 years ago on Coumadin with residual right sided weakness and dysarthria/speech delay, presents with acute onset of chest pain prior to arrival. patient presents with acute onset of chest pain with some typical and atypical components, reproduced with palpation, however relieved by aspirin/nitro en route. +risk factors with tobacco use, HTN, HLP, prior CVA. 08/07: Seen in his bedroom and discussed with nurse Miss Leung, she has questions about Heparin and Warfarin, this has to be assessed by security operations specialist because depend of the planned procedure may need to be off Warfarin and continue heparin IV. 08/08: Patient in sitting position, no complaint no nausea, vomit or diarrhea, No need for any procedure as per Doctor Chantal, Seen by his primary security operations specialist Doctor Nydia recommended to discharge patient, continue home medicines and follow in his office for 08/13/16. Objective Vital Signs Date Time Temp Pulse Resp B/P Pulse Ox O2 Delivery O2 Flow Rate FiO2 08/08/16 06:00 66 08/08/16 05:00 65 08/08/16 04:00 Room Air 08/08/16 04:00 98.0 68 18 115/73 100 08/08/16 04:00 68 08/08/16 03:00 65 08/08/16 02:00 60 08/08/16 01:00 61 08/08/16 00:00 Room Air 08/08/16 00:00 79 08/08/16 00:00 98.2 79 18 98/60 100 08/07/16 23:00 75 08/07/16 22:00 74 08/07/16 21:00 77 08/07/16 20:00 71 08/07/16 20:00 98.8 71 20 107/62 100 08/07/16 20:00 Room Air 08/07/16 18:00 80 08/07/16 17:00 72 08/07/16 16:00 99.2 91 16 100/55 99 08/07/16 16:00 79 08/07/16 15:00 96 08/07/16 14:00 82 08/07/16 13:00 94 08/07/16 12:00 98.8 80 16 110/60 100 08/07/16 12:00 101 08/07/16 11:00 92 08/07/16 10:00 82 08/07/16 09:00 120 I/O 08/07/16 08/07/16 08/07/16 08/08/16 08/08/16 08/08/16 07:00 15:00 23:00 07:00 15:00 23:00 Intake Total 317 ml 909 ml 250 ml Output Total 1200 ml 800 ml Balance 317 ml -291 ml -550 ml Intake Oral 240 ml 860 ml 240 ml IV Total 77 ml 49 ml 10 ml Output Urine Total 1200 ml 800 ml # Voids 2 # Bowel Movements 1 1 0 Result Diagram: 08/07/16 0606 08/04/16 0548 Imaging Last Impressions Chest X-Ray 07/25/162204 Signed Impressions: Service Date/Time: Monday, July 25, 2016 22:22 - CONCLUSION: 1. Mild bibasilar streakiness consistent with atelectasis, mild infiltrates and/or congestion. Clinical correlation is recommended. 2. Mild cardiomegaly. Uriel Plasencia MD Procedures Cardiac Catheterization 07/29/16 BMS to proximal Right PDA Other Results Laboratory Tests Test 08/04/16 08/07/16 08/08/16 05:48 06:06 05:12 Sodium Level 138 MEQ/L Potassium Level 3.9 MEQ/L Chloride Level 102 MEQ/L Carbon Dioxide Level 28.5 MEQ/L Anion Gap 8 MEQ/L Blood Urea Nitrogen 15 MG/DL Creatinine 1.03 MG/DL Estimat Glomerular Filtration 96 ML/MIN Rate Random Glucose 78 MG/DL Calcium Level 8.9 MG/DL Magnesium Level 2.5 MG/DL White Blood Count 9.8 TH/MM3 Red Blood Count 4.81 MIL/MM3 Hemoglobin 14.8 GM/DL Hematocrit 44.6 % Mean Corpuscular Volume 92.8 FL Mean Corpuscular Hemoglobin 30.9 PG Mean Corpuscular Hemoglobin 33.3 % Concent Red Cell Distribution Width 15.1 % Platelet Count 259 TH/MM3 Mean Platelet Volume 8.0 FL Prothrombin Time 21.3 SEC Prothromb Time International 1.9 RATIO Ratio Activated Partial 38.5 SEC Thromboplast Time Objective Remarks GENERAL: Well Developed, no acute distress. walking in the aisle. SKIN: Warm and dry. HEAD: Atraumatic. Normocephalic. EYES: Pupils equal and round. No scleral icterus. No injection or drainage. ENT: No nasal bleeding or discharge. Mucous membranes pink and moist. NECK: Trachea midline. No JVD. CARDIOVASCULAR: Regular rate and rhythm. RESPIRATORY: No accessory muscle use. Clear to auscultation. Breath sounds equal bilaterally. GASTROINTESTINAL: Abdomen soft, non-tender, nondistended. Hepatic and splenic margins not palpable. MUSCULOSKELETAL: Extremities without clubbing, cyanosis, or edema. No obvious deformities. NEUROLOGICAL: Awake and alert. No obvious cranial nerve deficits. Motor grossly within normal limits. Five out of 5 muscle strength in the arms and legs. Normal speech. PSYCHIATRIC: Appropriate mood and affect; insight and judgment normal. Medications and IVs Current Medications Medications (Trade) Dose Ordered Sig/Adilia Route Start Time Stop Time Status Last Admin (Tylenol) 650 mg Q4H PRN PO 07/26/16 06:15 08/07/16 03:42 (Zofran Inj) 4 mg Q6H PRN IVP 07/26/16 06:15 (Narcan Inj) 0.4 mg UNSCH PRN IV 07/26/16 06:15 (Pravachol) 20 mg HS PO 07/27/16 21:00 08/07/16 20:08 (Coreg) 6.25 mg BID PO 07/28/16 09:00 08/07/16 20:07 (NS Flush) 2 ml UNSCH PRN .XX 07/29/16 13:00 (NS Flush) 2 ml BID .XX 07/29/16 21:00 08/07/16 20:07 (Aspirin Chew) 81 mg DAILY PO 07/30/16 09:00 08/07/16 08:41 (Plavix) 75 mg DAILY PO 07/30/16 09:00 08/07/16 08:40 (Catapres) 0.1 mg Q6H PRN PO 07/29/16 16:45 07/30/16 00:58 (Prinivil) 30 mg DAILY PO 07/31/16 09:00 08/07/16 08:41 (Microzide) 12.5 mg DAILY PO 07/30/16 11:15 08/07/16 08:41 (Coumadin) 5 mg DAILY@1600 PO 07/30/16 16:00 08/07/16 15:19 (Imdur) 30 mg DAILY@07 PO 08/02/16 08:45 08/08/16 06:08 (Nitrostat Sl) 0.4 mg Q5M PRN SL 08/07/16 03:15 08/07/16 05:11 A/P Assessment and Plan -ACS- NSTEMI: S/P PCI right PDA with bare metal stent- 07/29 , cardiac cath- 07/27 - Normal LV function 65% Was on Heparin bridge to Therapeutic INR today 1.9 but as per Cardiology okay to discharge today and follow in his office for 08/13/16, Heparin was discontinued yesterday, continue Aspirin and Plavix. due to recurrent Chest pain and troponin elevation, due to spasms, or Bifurcation disease, recommended Nitrates for spasms, patient refused new Cardiac Cath. -Heart block/bradycardia - consult Dr Cornejo recommended no further Procedures to be performed. -Hypertension-improved -on Plavix, ASA, Coreg, YUMIKO, Pravachol,Coumadin. INR 1.9 today - Lisinopril to 30 mg daily. HCTZ 12.5 mg po daily. Nitrates -Echocardiogram with normal ejection fraction. As per Cardiology okay to discharge on Warfarin with -Hyperlipidemia: -continue patient's statin -Chronic CVA with Residual Right Sided Deficit and Dysarthria: chronic -monitor neuro checks -continue aspirin/Plavix -Tobacco Use: chronic- counselled extensively- "no more" -counseled on cessation -avoid nicotine patch secondary to vasoconstriction with NSTEMI as above DVT Prophylaxis: Warfarin, Plavix and Aspirin Discharge Planning Discharge Home Fabian Khan MD August 08, 2016 08:07
[2016-08-08] MEDS: LISINOPRIL 10 MG TAB PO SCH (09:00)
[2016-08-08] MEDS: SODIUM CHLORIDE 0.9% FLUSH 10 ML FLUSH SCH (09:00)
[2016-08-08] MEDS: HYDROCHLOROTHIAZIDE 12.5 MG CAP PO SCH (10:04)
[2016-08-08] MEDS: CARVEDILOL 6.25 MG TAB PO SCH (10:04)
[2016-08-08] MEDS: ASPIRIN 81 MG CHEW TAB PO SCH (10:04)
[2016-08-08] MEDS: CLOPIDOGREL 75 MG TAB PO SCH (10:04)
--- NOTE | 2016-08-08 10:24 | PD.CARD.PN ---
Subjective Subjective Remarks alert in nad Objective Vital Signs / I&O Vital Signs Date Time Temp Pulse Resp B/P Pulse Ox O2 Delivery O2 Flow Rate FiO2 08/08/16 06:00 66 08/08/16 05:00 65 08/08/16 04:00 Room Air 08/08/16 04:00 98.0 68 18 115/73 100 08/08/16 04:00 68 08/08/16 03:00 65 08/08/16 02:00 60 08/08/16 01:00 61 08/08/16 00:00 Room Air 08/08/16 00:00 79 08/08/16 00:00 98.2 79 18 98/60 100 08/07/16 23:00 75 08/07/16 22:00 74 08/07/16 21:00 77 08/07/16 20:00 71 08/07/16 20:00 98.8 71 20 107/62 100 08/07/16 20:00 Room Air 08/07/16 18:00 80 08/07/16 17:00 72 08/07/16 16:00 99.2 91 16 100/55 99 08/07/16 16:00 79 08/07/16 15:00 96 08/07/16 14:00 82 08/07/16 13:00 94 08/07/16 12:00 98.8 80 16 110/60 100 08/07/16 12:00 101 08/07/16 11:00 92 I/O 08/07/16 08/07/16 08/07/16 08/08/16 08/08/16 08/08/16 07:00 15:00 23:00 07:00 15:00 23:00 Intake Total 317 ml 909 ml 250 ml Output Total 1200 ml 800 ml Balance 317 ml -291 ml -550 ml Intake Oral 240 ml 860 ml 240 ml IV Total 77 ml 49 ml 10 ml Output Urine Total 1200 ml 800 ml # Voids 2 # Bowel Movements 1 1 0 Physical Exam GENERAL: SKIN: Warm and dry. HEAD: Normocephalic. EYES: No scleral icterus. No injection or drainage. NECK: Supple, trachea midline. No JVD or lymphadenopathy. CARDIOVASCULAR: Regular rate and rhythm without murmurs, gallops, or rubs. RESPIRATORY: Breath sounds equal bilaterally. No accessory muscle use. GASTROINTESTINAL: Abdomen soft, non-tender, nondistended. MUSCULOSKELETAL: No cyanosis, or edema. BACK: Nontender without obvious deformity. No CVA tenderness. Laboratory Laboratory Tests Test 08/08/16 05:12 Prothrombin Time 21.3 SEC Prothromb Time International 1.9 RATIO Ratio Activated Partial 38.5 SEC Thromboplast Time Assessment and Plan Problem List: (1) Hyperlipidemia (2) Hypertension (3) NSTEMI (non-ST elevated myocardial infarction) (4) H/O ischemic left MCA stroke (5) CAD (coronary artery disease) Assessment and Plan 1.) NSTEMI - indeterminate culprit lesion, s/p bms mid lad and 95% prox rpda, stage rpda basil, continue dapt, hep bridge, continue coumadin, d/w Dr Saba; recurrent cp and trop elevation ? due to spasm and or bifucation disease @ diag with lad and/or rpds with rpla; these would be difficulat to stent due to @ 30 degree angulation of branch vessels; i think it is reasonable to try him on nitrates for spasm and continue omt for branch vessel disease, dapt, pravastatin , lisinopril, coreg; i rec'd cath and the patient refuses; ok to dc from cv standpoint, f/u with me august 13, 2016 2.) Heart block/bradycardia - pm not indicated per Greg Weber MD August 08, 2016 10:24
[2016-08-08 12:51] LABS: APTT (PATIENT) 40.4 SEC (24.3-30.1); INTERNATIONAL NORMALIZED RATIO 1.7 RATIO
[2016-08-08] MEDS ORDERED: COUM5TAB PO (13:14)
[2016-08-08] MEDS ORDERED: CARV6.25 PO (13:14)
[2016-08-08] MEDS ORDERED: NITR1SUB3 SL (13:14)
[2016-08-08] MEDS ORDERED: HYDR12.57 PO (13:14)
[2016-08-08] MEDS ORDERED: LISI10TA3 PO (13:14)
[2016-08-08] MEDS ORDERED: PLAV75TA29 PO ×2 (13:14→16:25)
[2016-08-08] MEDS ORDERED: ASPI81CH25 PO (13:14)
--- NOTE | 2016-08-08 13:24 | HHI.DS ---
Discharge Summary Admission Date July 26, 2016 at 06:16 Discharge Date: August 08, 2016 Admitting Diagnosis chest pain (1) NSTEMI (non-ST elevated myocardial infarction) ICD Code: I21.4 Diagnosis: Principal (2) Hypertension ICD Code: I10 Diagnosis: Principal (3) Hyperlipidemia ICD Code: E78.5 Procedures 07/28- cardiac catheterization 07/29- cardiac cath with PCI bare metal stent of right PDA Brief History - From Admission 41-year-old male with history of HTN, HLD, CVA 5 years ago on Coumadin with residual right sided weakness and dysarthria/speech delay, presents with acute onset of chest pain prior to arrival. The patient reports last night around 8pm while watching television he developed constant severe sharp midsternal chest pain, with no radiation of the pain but did have tingling down both arms/hands. Denies any associated nausea/vomiting, diaphoresis, or shortness of breath. Denies any lower extremity edema or weight gain. The pain was worsened by deep inspiration and is reproducible with palpation. The patient does admit he has been doing a lot of push ups yesterday prior to the chest pain. He has never had chest pain like this before. He denies any chest pain with exertion in the past. His chest pain was relieved after receiving aspirin and nitro en route via EMS. He follows with neurologist Dr. Saba and he also believes he has a gift manager in [place] however denies any prior stress testing or cardiac catheterization. The patient has no other medical complaints to report. CBC/BMP: 08/07/16 0606 08/04/16 0548 Significant Findings Laboratory Tests Test 08/05/16 08/06/16 08/06/16 08/07/16 19:40 05:20 09:06 06:06 Prothrombin Time 18.0 SEC 19.4 SEC 21.0 SEC 23.4 SEC (9.8-11.6) (9.8-11.6) (9.8-11.6) (9.8-11.6) Activated Partial 56.5 SEC 58.3 SEC 68.5 SEC Thromboplast Time (24.3-30.1) (24.3-30.1) (24.3-30.1) Test 08/07/16 08/08/16 08/08/16 09:23 05:12 10:57 Prothrombin Time 24.4 SEC 21.3 SEC 19.0 SEC (9.8-11.6) (9.8-11.6) (9.8-11.6) Activated Partial 60.7 SEC 38.5 SEC 40.4 SEC Thromboplast Time (24.3-30.1) (24.3-30.1) (24.3-30.1) Imaging Last Impressions Chest X-Ray 07/25/167 Signed Impressions: Service Date/Time: Wednesday, July 25, 2016 22:22 - CONCLUSION: 1. Mild bibasilar streakiness consistent with atelectasis, mild infiltrates and/or congestion. Clinical correlation is recommended. 2. Mild cardiomegaly. Uriel Plasencia MD PE at Discharge GENERAL: Well Developed, no acute distress. walking in the aisle. SKIN: Warm and dry. HEAD: Atraumatic. Normocephalic. EYES: Pupils equal and round. No scleral icterus. No injection or drainage. ENT: No nasal bleeding or discharge. Mucous membranes pink and moist. NECK: Trachea midline. No JVD. CARDIOVASCULAR: Regular rate and rhythm. RESPIRATORY: No accessory muscle use. Clear to auscultation. Breath sounds equal bilaterally. GASTROINTESTINAL: Abdomen soft, non-tender, nondistended. Hepatic and splenic margins not palpable. MUSCULOSKELETAL: Extremities without clubbing, cyanosis, or edema. No obvious deformities. NEUROLOGICAL: Awake and alert. No obvious cranial nerve deficits. Motor grossly within normal limits. Five out of 5 muscle strength in the arms and legs. Normal speech. PSYCHIATRIC: Appropriate mood and affect; insight and judgment normal. Hospital Course 41-year-old male with history of HTN, HLD, CVA 5 years ago on Coumadin with residual right sided weakness and dysarthria/speech delay, presents with acute onset of chest pain prior to arrival. patient presents with acute onset of chest pain with some typical and atypical components, reproduced with palpation, however relieved by aspirin/nitro en route. +risk factors with tobacco use, HTN, HLP, prior CVA. 08/07: Seen in his bedroom and discussed with nurse Miss Leung, she has questions about Heparin and Warfarin, this has to be assessed by media marketing specialist because depend of the planned procedure may need to be off Warfarin and continue heparin IV. 08/08: Patient in sitting position, no complaint no nausea, vomit or diarrhea, No need for any procedure as per Doctor Cornejo, Seen by his primary media marketing specialist Doctor Nydia recommended to discharge patient, continue home medicines and follow in his office for 08/13/16. Assessment and Plan -ACS- NSTEMI: S/P PCI right PDA with bare metal stent- 07/29 , cardiac cath- 07/27 - Normal LV function 65% Was on Heparin bridge to Therapeutic INR today 1.9 but as per Cardiology okay to discharge today and follow in his office for 08/13/16, Heparin was discontinued yesterday, continue Aspirin and Plavix. due to recurrent Chest pain and troponin elevation, due to spasms, or Bifurcation disease, recommended Nitrates for spasms, patient refused new Cardiac Cath. -Heart block/bradycardia - consult Dr Cornejo recommended no further Procedures to be performed. -Hypertension-improved -on Plavix, ASA, Coreg, YUMIKO, Pravachol,Coumadin. INR 1.9 today - Lisinopril to 30 mg daily. HCTZ 12.5 mg po daily. Nitrates -Echocardiogram with normal ejection fraction. As per Cardiology okay to discharge on Warfarin with -Hyperlipidemia: -continue patient's statin -Chronic CVA with Residual Right Sided Deficit and Dysarthria: chronic -monitor neuro checks -continue aspirin/Plavix -Tobacco Use: chronic- counselled extensively- "no more" -counseled on cessation -avoid nicotine patch secondary to vasoconstriction with NSTEMI as above DVT Prophylaxis: Warfarin, Plavix and Aspirin Discharge Planning Discharge Home Pt Condition on Discharge: Good Discharge Disposition: Discharge Home Discharge Time: > 30 minutes Discharge Instructions DIET: Follow Instructions for: Heart Healthy Diet Activities you can perform: Regular-No Restrictions Fabian Khan MD August 08, 2016 13:24
[2016-08-08] MEDS ORDERED: WARF-20 PO (13:43)
[2016-08-08] MEDS ORDERED: WARFARIN SOD 5 MG TAB PO SCH (16:00)
== END 2016-08-08 17:44 | disposition home or self-care (01) | DRG 249 ==
LOC: NEPE 21:51 → NEDA 23:29 → NEPFCDU 07-26 00:33 → OBSVTOIN 07-26 06:16 → N04A 07-26 17:06 → HCIN 07-27 17:36 → HCIS 08-03 07:05
PROVIDERS: ADMIT Internal Medicine; ATTEND Internal Medicine
PROC: 02703DZ Dilation of Coronary Artery, One Artery with Intraluminal Device, Percutaneous Approach (ICD-10-PCS; 2016-07-27)
PROC: B2111ZZ Fluoroscopy of Multiple Coronary Arteries using Low Osmolar Contrast (ICD-10-PCS; 2016-07-27)
PROC: B2151ZZ Fluoroscopy of Left Heart using Low Osmolar Contrast (ICD-10-PCS; 2016-07-27)
PROC: 4A023N7 Measurement of Cardiac Sampling and Pressure, Left Heart, Percutaneous Approach (ICD-10-PCS; principal; 2016-07-27 13:45)
PROC: 02703DZ Dilation of Coronary Artery, One Artery with Intraluminal Device, Percutaneous Approach (ICD-10-PCS; 2016-07-29)
DX: I21.4 Non-ST elevation (NSTEMI) myocardial infarction (principal); I69.351 Hemiplegia and hemiparesis following cerebral infarction affecting right dominant side; I25.111 Atherosclerotic heart disease of native coronary artery with angina pectoris with documented spasm; I10 Essential (primary) hypertension; R00.1 Bradycardia, unspecified; E78.5 Hyperlipidemia, unspecified; I69.322 Dysarthria following cerebral infarction; E87.6 Hypokalemia; E83.51 Hypocalcemia; F17.210 Nicotine dependence, cigarettes, uncomplicated; I45.9 Conduction disorder, unspecified; Z79.01 Long term (current) use of anticoagulants
CPT/HCPCS: 71010; 80048; 80061; 80307; 82272; 82550; 82552; 83036; 83735; 84484; 85002; 85025; 85027; 85610; 85730; 92928; 93005; 93306; 93454; 93458; C1769; C1876; C1887; C1893; J0171; J0461; J1644; J2270; J3246; J7030; Q9967